=== PATIENT | male | born 1990 | race American Indian/Alaskan Native ===

== ENCOUNTER 2019-04-23 05:46 | Inpatient (IN) | payer OTHER ==
[2019-04-23 06:44] LABS: Bacteria,Urine 1+ /HPF (Negative); Bilirubin,Urine NEG (Negative); Blood,Urine SM (Negative); Color,Urine Amber (Yellow); Mucus,Urine 3+ /HPF; Urobilinogen,Urine < 2.0 mg/dL (<2.0)
--- NOTE | 2019-04-23 08:02 | Event Note ---
ED Screening Note ED Screening Note: TO ER WITH ABD PAIN BP ELEVATED HE TOOK MOMS BP MED HE IS TREMULOUS ON EXAM LAST DRANK 3 DAYS AGO DRINKS 5TH OF HARD LIQUOR DAILY FOR 3-4 YEARS NO DRUGS NO CIG NO MENTAL HEALTH HX NEVER HAD DTS IN PAST COOPERATIVE This initial assessment/diagnostic orders/clinical plan/treatment(s) is/are subject to change based on patients health status, clinical progression and re- assessment by fellow clinical providers in the ED. Further treatment and workup at subsequent clinical providers discretion. Patient/guardian urged not to elope from the ED as their condition may be serious if not clinically assessed and managed. Initial orders include: ROUTINE LABS XRAY ZACHARY PIRES MD IN MAIN ED.
[2019-04-23 08:20] LABS: Hematocrit 51.4 % (35.5-45.6); Hemoglobin 17.2 gm/dl (11.8-15.2); Mean Corpuscular HGB Conc 33 % (32-34); Mean Corpuscular Volume 90 fl (84-94); Platelet Count 134 K/mm3 (140-440); Red Blood Count 5.69 M/mm3 (3.65-5.03); Red Cell Distribution Width 13.7 % (13.2-15.2)
[2019-04-23] MEDS ORDERED: THIAMINE 100 MG, FOLIC ACID 1 MG, MULTIPLE VITAMIN/VIT K 10 ML in SODIUM CHLORIDE 0.9% ... IV ONE (08:30)
[2019-04-23 08:35] LABS: Partial Thromboplastin Time 31.2 Sec. (24.2-36.6)
[2019-04-23 08:41] LABS: Alanine Aminotransferase 71 units/L (7-56); BUN/Creatinine Ratio 15; Blood Urea Nitrogen 12 mg/dL (9-20); Calcium 8.7 mg/dL (8.4-10.2); Hemolysis Index 36
--- NOTE | 2019-04-23 09:11 | XRay Report ---
CHEST 1 VIEW INDICATION: Alcohol Intoxication. COMPARISON: None FINDINGS: Support devices: None. Heart: Within normal limits. Lungs/Pleura: No acute air space or interstitial disease. There is poor inspiratory effort. Additional findings: None. IMPRESSION: No acute findings. Signer Name: Royce Adams Jr, MD Signed: 04/23/2019 9:07 AM Workstation Name: [id number]
[2019-04-23] MEDS ORDERED: LORazepam 2 MG/ML VIAL IV STA (10:10)
--- NOTE | 2019-04-23 10:17 | Emergency Department Report ---
<SANDRO LONDON - Last Filed: 04/23/19 12:23> ED Abdominal Pain HPI - General Chief Complaint: Abdominal Pain Stated Complaint: POSS HIGH BP STOMACH PAIN Time Seen by Provider: 04/23/19 10:01 Source: patient Mode of arrival: Ambulatory Limitations: No Limitations - History of Present Illness Initial Comments: 29-year-old -Luxembourger male with a past medical history alcohol abuse reports He drinks one to two 1/5 of liquor daily for the last 3 years. Reports having diarrhea and abdominal discomfort for the last 2 days as well as is associated with some mild pain to the upper abdomen. Reports no fever, chills, sweats no hemoptysis no hematemesis nor hematochezia and still exhibited to tolerate meals. MD Complaint: abdominal pain Location: diffuse Radiation: none Severity: mild Consistency: constant Improves With: nothing Worsens With: nothing Associated Symptoms: diarrhea. denies: nausea, vomiting, constipation, dysuria, hematemesis, melena, hematuria, anorexia, syncope - Related Data Previous Rx's Medication Instructions Recorded Last Taken Type Acetaminophen/Codeine [Tylenol #3] 1 tab PO Q6H PRN #15 tab 09/22/15 Unknown Rx Cyclobenzaprine [Flexeril 10 MG 10 mg PO TID PRN #12 tablet 09/22/15 Unknown Rx TAB] Ibuprofen [Motrin 800 MG tab] 800 mg PO Q8HR PRN #30 tablet 09/22/15 Unknown Rx Allergies Allergy/AdvReac Type Severity Reaction Status Date / Time No Known Allergies Allergy Unverified 09/22/15 14:21 ED Review of Systems Comment: All other systems reviewed and negative ED Past Medical Hx - Past Medical History Previous Medical History?: No - Surgical History Past Surgical History?: Yes Additional Surgical History: Right Wrist surgery - Social History Smoking Status: Never Smoker Substance Use Type: Alcohol - Medications Home Medications: Home Medications Medication Instructions Recorded Confirmed Last Taken Type Acetaminophen/Codeine [Tylenol #3] 1 tab PO Q6H PRN #15 tab 09/22/15 Unknown Rx Cyclobenzaprine [Flexeril 10 MG 10 mg PO TID PRN #12 tablet 09/22/15 Unknown Rx TAB] Ibuprofen [Motrin 800 MG tab] 800 mg PO Q8HR PRN #30 tablet 09/22/15 Unknown Rx ED Physical Exam - General Limitations: No Limitations General appearance: alert, in no apparent distress - Head Head exam: Present: atraumatic, normocephalic - Eye Eye exam: Present: normal appearance - ENT ENT exam: Present: mucous membranes moist - Neck Neck exam: Present: normal inspection - Respiratory Respiratory exam: Present: normal lung sounds bilaterally. Absent: respiratory distress - Cardiovascular Cardiovascular Exam: Present: regular rate, normal rhythm. Absent: systolic murmur, diastolic murmur, rubs, gallop - GI/Abdominal GI/Abdominal exam: Present: soft, tenderness, normal bowel sounds. Absent: distended, guarding, hyperactive bowel sounds, hypoactive bowel sounds, organomegaly - Rectal Rectal exam: Present: deferred - Extremities Exam Extremities exam: Present: normal inspection, full ROM, normal capillary refill - Back Exam Back exam: Present: normal inspection. Absent: CVA tenderness (R), CVA tenderness (L) - Neurological Exam Neurological exam: Present: alert, oriented X3, CN II-XII intact - Psychiatric Psychiatric exam: Present: normal affect, normal mood - Skin Skin exam: Present: warm, dry, intact, normal color. Absent: rash ED Medical Decision Making - Lab Data Result diagrams: 04/23/19 Unknown 04/23/19 Unknown - Radiology Data Radiology results: report reviewed Findings [facility] [address] [place] [address] Cat Scan Report Signed Patient: NIKKI JONES MR#: [id number] : 1990 Acct:[id number] Age/Sex: 29 / M ADM Date: 04/23/19 Loc: ED Attending Dr: Ordering Physician: RYANN JORDAN Date of Service: 04/23/19 Procedure(s): CT abdomen pelvis w con Accession Number(s): [id number] cc: RYANN JORDAN CT ABDOMEN AND PELVIS WITH CONTRAST HISTORY: diffuse pain, swelling, elevated liver /lipase COMPARISON: None. TECHNIQUE: Axial CT images were obtained through the abdomen and pelvis after 100 cc of Omnipaque 300 intravenously. Sagittal and coronal reformatted images. All CT scans at this location are performed using CT dose reduction for ALARA by means of automated exposure control. FINDINGS: CT ABDOMEN: Lung Bases: Mild cardiomegaly. Small layering left pleural effusion measuring 1 cm in thickness. Liver: There is mild to moderate hepatomegaly. There is marketed decreased attenuation throughout the liver consistent with severe fatty infiltration. No focal liver lesion. Biliary: A few tiny calcified gallstones are identified in the gallbladder. No biliary dilatation or inflammation. No obvious common bile duct stones. Spleen: No s ignificant abnormality. Unenlarged. Pancreas: The pancreas appears edematous. There is moderate to large inflammatory changes and fluid surrounding the pancreatic bed highly suggestive of acute pancreatitis. No pancreatic mass or pseudocyst is identified. Adrenals: No significant abnormality. Kidneys: No significant abnormality. Lymphatics: No lymphadenopathy. Vasculature: No significant abnormality. Bowel/Peritoneum: No significant abnormality. No free air. Small free fluid is noted in the paracolic gutters and pelvis.. Appendix is not confidently identified. CT PELVIS: : No significant abnormality. Osseous Structures: No significant abnormality. Additional Findings: None IMPRESSION: Findings consistent with acute pancreatitis. Cholelithiasis. Hepatomegaly with severe diffuse fatty infiltration throughout the liver. Mild cardiomegaly and small left pleural effusion. Small ascites. Signer Name: Royce Adams Jr, MD Signed: 04/23/2019 12:07 PM Workstation Name: [id number] Transcribed By: TTR Dictated By: ROYCE ADAMS JR, MD Electronically Authenticated By: ROYCE ADAMS JR, MD Signed Date/Time: 04/23/19 1207 [facility] [address] [place] [address] XRay Report Signed Patient: NIKKI JONES MR#: [id number] : 1990 Acct:[id number] Age/Sex: 29 / M ADM Date: 04/23/19 Loc: ED At [facility] Dr: Ordering Physician: TORRIE JUDGE Date of Service: 04/23/19 Procedure(s): XR chest 1V ap Accession Number(s): [id number] cc: TORRIE JUDGE Fluoro Time In Minutes: CHEST 1 VIEW INDICATION: Alcohol Intoxication. COMPARISON: None FINDINGS: Support devices: None. Heart: Within normal limits. Lungs/Pleura: No acute air space or interstitial disease. There is poor inspiratory effort. Additional findings: None. IMPRESSION: No acute findings. Signer Name: Royce Adams Jr, MD Signed: 04/23/2019 9:07 AM Workstation Name: [id number] [facility] [address] [place] [address] XRay Report Signed Patient: NIKKI JONES MR#: [id number] : 1990 Acct:[id number] Age/Sex: 29 / M ADM Date: 04/23/19 Loc: ED Attending Dr: Ordering Physician: TORRIE JUDGE Date of Service: 04/23/19 Procedure(s): XR chest 1V ap Accession Number(s): [id number] cc: TORRIE JUDGE Fluoro Time In Minutes: CHEST 1 VIEW INDICATION: Alcohol Intoxication. COMPARISON: None FINDINGS: Support devices: None. Heart: Within normal limits. Lungs/Pleura: No acute air space or interstitial disease. There is poor inspiratory effort. Additional findings: None. IMPRESSION: No acute findings. Signer Name: Royce Adams Jr, MD Signed: 04/23/2019 9:07 AM Workstation Name: [id number] - Medical Decision Making 39-year-old -Luxembourger [place] male alcoholic who presents with abdominal pain associated with diarrhea and 24 hours of etoh intake. His lipase was elevated at close to 900 also has shows elevated liver enzymes as well. CT scan did confirm pancreatitis and coldly left physis with no active cholecystitis. Case was discussed with hospitalist Dr. De Jesus with plan to admit to [facility] for hydration and further evaluation and treatment options he is also instructed in detoxification of alcohol ED Disposition Disposition: DC-01 TO HOME OR SELFCARE Is pt being admited?: Yes Does the pt Need Aspirin: No Condition: Stable Referrals: PRIMARY CARE, [Primary Care Provider] - 3-5 Days <CHRIS DAWSON III - Last Filed: 04/23/19 13:27> ED Review of Systems ROS: Stated complaint: POSS HIGH BP STOMACH PAIN Other details as noted in HPI ED Physical Exam - General Limitations: No Limitations General appearance: alert, in no apparent distress - Head Head exam: Present: atraumatic, normocephalic - Eye Eye exam: Present: normal appearance - ENT ENT exam: Present: mucous membranes moist - Neck Neck exam: Present: normal inspection - Respiratory Respiratory exam: Present: normal lung sounds bilaterally. Absent: respiratory distress - Cardiovascular Cardiovascular Exam: Present: regular rate, normal rhythm. Absent: systolic murmur, diastolic murmur, rubs, gallop - GI/Abdominal GI/Abdominal exam: Present: soft, tenderness, normal bowel sounds - Rectal Rectal exam: Present: deferred - Extremities Exam Extremities exam: Present: normal inspection, full ROM, normal capillary refill - Back Exam Back exam: Present: normal inspection - Neurological Exam Neurological exam: Present: alert, oriented X3, CN II-XII intact - Psychiatric Psychiatric exam: Present: normal affect, normal mood - Skin Skin exam: Present: warm, dry, intact, normal color. Absent: rash ED Course Vital Signs 04/23/19 04/23/19 04/23/19 05:48 08:52 10:19 Temperature 98.3 F 100.2 F H Pulse Rate 71 118 H 138 H Respiratory 16 18 22 Rate Blood Pressure 153/104 Blood Pressure 176/88 162/112 [Left] O2 Sat by Pulse 98 99 100 Oximetry 04/23/19 04/23/19 04/23/19 12:13 13:05 13:11 Temperature 100.2 F H Pulse Rate 140 H 160 H 132 H Respiratory 16 Rate Blood Pressure Blood Pressure 159/110 [Left] O2 Sat by Pulse 100 Oximetry - Reevaluation(s) Reevaluation #1: I discussed case with patient. I evaluated the patient. Patient was admitted to the hospital service. Patient agrees with plan of care. 04/23/19 10:56 - Consultations Consultation #1: Hospitalist consult for admission. Hospitalist to admit patient. Bridge orders place. 04/23/19 12:27 ED Medical Decision Making - Lab Data Result diagrams: 04/23/19 Unknown 04/23/19 Unknown Critical care attestation.: If time is entered above; I have spent that time in minutes in the direct care of this critically ill patient, excluding procedure time.
[2019-04-23 10:50] LABS: Bacteria,Urine 1+ /HPF (Negative); Bilirubin,Urine SM (Negative); Blood,Urine NEG (Negative); Color,Urine Amber (Yellow); Mucus,Urine 3+ /HPF; Protein,Urine >2000 mg dL mg/dL (Negative)
[2019-04-23] MEDS: LORazepam 2 MG/ML VIAL IV PRN ×8 (10:56→23:58)
[2019-04-23 11:00] LABS: Ictotest,Urine Positive (Negative)
[2019-04-23 11:04] LABS: Amphetamine Screen,Urine PRESUMPTIVE NEGATIVE; Benzodiazepines Screen,Urine PRESUMPTIVE NEGATIVE; Cannabinoid Screen,Urine PRESUMPTIVE NEGATIVE; Cocaine Screen,Urine PRESUMPTIVE NEGATIVE; Methadone Screen,Urine PRESUMPTIVE NEGATIVE; Opiate Screen,Urine PRESUMPTIVE NEGATIVE
[2019-04-23 11:08] LABS: Basophils % (Manual) 0 % (0.0-1.8); Eosinophils % (Manual) 0 % (0.0-4.3); Total Cells Counted 100
[2019-04-23 11:09] LABS: Anisocytosis Few; Platelet Estimate Consistent w Auto
--- NOTE | 2019-04-23 12:12 | Cat Scan Report ---
CT ABDOMEN AND PELVIS WITH CONTRAST HISTORY: diffuse pain, swelling, elevated liver /lipase COMPARISON: None. TECHNIQUE: Axial CT images were obtained through the abdomen and pelvis after 100 cc of Omnipaque 300 intravenously. Sagittal and coronal reformatted images. All CT scans at this location are performed using CT dose reduction for ALARA by means of automated exposure control. FINDINGS: CT ABDOMEN: Lung Bases: Mild cardiomegaly. Small layering left pleural effusion measuring 1 cm in thickness. Liver: There is mild to moderate hepatomegaly. There is marketed decreased attenuation throughout the liver consistent with severe fatty infiltration. No focal liver lesion. Biliary: A few tiny calcified gallstones are identified in the gallbladder. No biliary dilatation or inflammation. No obvious common bile duct stones. Spleen: No significant abnormality. Unenlarged. Pancreas: The pancreas appears edematous. There is moderate to large inflammatory changes and fluid s urrounding the pancreatic bed highly suggestive of acute pancreatitis. No pancreatic mass or pseudocy st is identified. Adrenals: No significant abnormality. Kidneys: No significant abnormality. Lymphatics: No lymphadenopathy. Vasculature: No significant abnormality. Bowel/Peritoneum: No significant abnormality. No free air. Small free fluid is noted in the paracolic gutters and pelvis.. Appendix is not confidently identified. CT PELVIS: : No significant abnormality. Osseous Structures: No significant abnormality. Additional Findings: None IMPRESSION: Findings consistent with acute pancreatitis. Cholelithiasis. Hepatomegaly with severe diffuse fatty infiltration throughout the liver. Mild cardiomegaly and small left pleural effusion. Small ascites. Signer Name: Royce Adams Jr, MD Signed: 04/23/2019 12:07 PM Workstation Name: [id number]
[2019-04-23] MEDS ORDERED: SODIUM CHLORIDE 0.9% 1000 ML 1,000 ML IV ONE ×2 (12:46→18:50)
[2019-04-23] MEDS ORDERED: SODIUM CHLORIDE 0.9% 1000 ML 1,000 ML IV SCH (13:30)
[2019-04-23] MEDS ORDERED: HYDROmorphone 2 MG/1 ML INJ IV ONE (14:46)
[2019-04-23] MEDS ORDERED: HYDROmorphone 1 MG/1 ML INJ ONE (14:50)
[2019-04-23] MEDS ORDERED: ACETAMINOPHEN 325 MG TAB PO PRN ×2 (18:51→19:48)
[2019-04-23] MEDS ORDERED: ONDANSETRON 4 MG/2 ML INJ IV PRN (19:48)
[2019-04-23] MEDS ORDERED: METOCLOPRAMIDE 10 MG/2 ML INJ IV PRN (19:48)
[2019-04-23] MEDS ORDERED: VANCOMYCIN PHARMACY TO DOSE IV SCH (21:38)
[2019-04-23] MEDS: METOPROLOL TARTRATE 5 MG/5 ML INJ IV PRN (22:06)
[2019-04-23] MEDS: CEFEPIME/NS 2 GM/100 ML 2 GM/100 ML BAG IV SCH (22:06)
[2019-04-23] MEDS ORDERED: VANCOMYCIN 1,750 MG in SODIUM CHLORIDE 0.9% 500 ML 500 ML IV ONE (23:00)
[2019-04-24] MEDS: LORazepam 2 MG/ML VIAL IV PRN ×11 (01:25→09:10)
[2019-04-24] MEDS: HYDROmorphone 1 MG/1 ML INJ IV PRN ×3 (01:43→09:43)
[2019-04-24] MEDS: METOPROLOL TARTRATE 5 MG/5 ML INJ IV PRN (04:08)
[2019-04-24] MEDS: SODIUM CHLORIDE 0.9% 1000 ML 1,000 ML IV SCH ×5 (04:12→20:44)
[2019-04-24 05:12] LABS: Basophils # (Auto) 0.1 K/mm3 (0.0-0.1); Basophils % (Auto) 0.4 % (0.0-1.8); Eosinophils # (Auto) 0.1 K/mm3 (0.0-0.4); Eosinophils % (Auto) 0.9 % (0.0-4.3); Hemoglobin 14.4 gm/dl (11.8-15.2); Lymphocytes # (Auto) 0.7 K/mm3 (1.2-5.4); Lymphocytes % (Auto) 4.4 % (13.4-35.0); Mean Corpuscular HGB Conc 34 % (32-34); Mean Corpuscular Volume 91 fl (84-94); Monocytes # (Auto) 0.7 K/mm3 (0.0-0.8); Monocytes % (Auto) 4.3 % (0.0-7.3); Platelet Count 104 K/mm3 (140-440); Red Blood Count 4.74 M/mm3 (3.65-5.03); Red Cell Distribution Width 13.8 % (13.2-15.2)
[2019-04-24] MEDS: CEFEPIME/NS 2 GM/100 ML 2 GM/100 ML BAG IV SCH ×3 (05:30→21:43)
[2019-04-24 05:35] LABS: Alanine Aminotransferase 45 units/L (7-56); Albumin 3.1 g/dL (3.9-5); BUN/Creatinine Ratio 11; Blood Urea Nitrogen 8 mg/dL (9-20); Calcium 7.8 mg/dL (8.4-10.2); Hemolysis Index 9
--- NOTE | 2019-04-24 05:45 | Event Note ---
Date: 04/23/19 See H/p in reports Acute Pancreatitis SIRS Etoh dependence DT's Tachycardia
[2019-04-24] MEDS ORDERED: cloNIDine TTS 0.2 MG/24 HR PATCH TD SCH ×2 (06:00→12:00)
--- NOTE | 2019-04-24 06:45 | History and Physical Report ---
CHIEF COMPLAINT: Abdominal pain for 2 days. HISTORY OF PRESENT ILLNESS: A 29-year-old -Surinamese male with no significant past medical history, comes in for severe abdominal pain for the last 48 hours. Pain is about 10 on a scale of 1-10. The patient has nausea and vomiting multiple times, also a couple of loose bowel movements. Pain is sharp in nature, mostly in the epigastric region. The patient drinks vodka every day for the last 3-4 years about two-fifths of vodka bottle, which is about 600 mL of vodka. Did not have any alcohol for the last 2 days. He did drink because he was not feeling well. PAST MEDICAL HISTORY: None. PAST SURGICAL HISTORY: Right wrist surgery. SOCIAL HISTORY: Does not smoke. Alcohol on a regular basis. No marijuana. FAMILY HISTORY: Hypertension. CURRENT MEDICATIONS: None. REVIEW OF SYSTEMS: Significant for severe abdominal pain, which is 04/10/2019 associated with nausea and vomiting and couple of loose bowel movements. Pain is intermittent, lasting for the last 48 hours. PHYSICAL EXAMINATION: GENERAL: Young male, initially cooperative during examination. VITAL SIGNS: Blood pressure was 153/104, temperature 98.3, pulse is 71, respiratory rate is 16. HEENT: Unremarkable. Pupils equal and reactive. NECK: Supple, no lymphadenopathy, no thyromegaly. LUNGS: Clear to auscultation and percussion. Good air entry. CARDIOVASCULAR: S1, S2 heard. No gallop, no murmur, no rub. Apical impulse in left fifth intercostal space and midclavicular line. ABDOMEN: Tenderness present in epigastric region. Guarding present. Bowel sounds are normal. Rebound tenderness present. RECTAL: Normal. EXTREMITIES: Good pedal pulses. No pedal edema. CENTRAL NERVOUS SYSTEM: Alert and oriented x 4 initially, couple of hours later became more agitated and bit confused. No hallucinations. LABORATORY DATA AND IMAGING STUDIES: Significant for white count of 17,700, H and H is 17.2 and 51.4, platelet count is 134,000. Sodium is 134, potassium is 4.1, chloride is 95.4, bicarbonate is 19, BUN and creatinine is 12 and 1.8. Total bilirubin is 1.3, AST is 146, ALT is 71 and alkaline phosphatase is 185. Urine specific gravity is 1.034. Urine drug screen is negative. CT of the abdomen shows hepatomegaly with severe diffuse fatty infiltration, mild cardiomegaly and small left pleural effusion. Findings consistent with acute pancreatitis and cholelithiasis. Lipase was 864. ASSESSMENT AND PLAN: 1. Acute pancreatitis. The patient to be kept n.p.o. IV Dilaudid 1 mg q.3 p.r.n. along with IV Zofran and metoclopramide. 2. ETOH dependence. The patient initiated on CIWA protocol. 3. Hypertension, new onset. The patient is in pain and the blood pressure may be a function of his pain. Catapres patch for now because the patient is n.p.o. 4. Delirium tremens. The patient is going into early delirium tremens. The patient with high CIWA scores. The patient to be transferred to ICU for further care. 5. Transaminitis secondary to alcohol. We will check acute hepatitis profile. 6. Dehydration. IV fluids for now. 7. Clinical picture consistent with systemic inflammatory response syndrome. The patient has a high white count and also high hemoglobin and hematocrit, which may be secondary to hemoconcentration. IV fluids for now and empiric IV cefepime, which has to be deescalated, if necessary. No source of infection identified. 8. Deep vein thrombosis prophylaxis. Lovenox 40 mg subcutaneously daily. In summary, the patient has acute pancreatitis, systemic inflammatory response syndrome, ETOH dependence, delirium tremens, leukocytosis and transaminitis along with volume depletion. CCT 45 minutes JOB# [id number] VSM/NTS MTDD
[2019-04-24] MEDS ORDERED: MAGNESIUM SULFATE 4 GM/100 ML BAG IV ONE ×2 (09:00→11:48)
[2019-04-24] MEDS ORDERED: POTASSIUM PHOSPHATE 45 MMOL in SODIUM CHLORIDE 0.9% 500 ML 500 ML IV ONE (09:00)
[2019-04-24] MEDS: HALOPERIDOL LACTATE 5 MG/1 ML INJ IV PRN (09:31)
[2019-04-24] MEDS: METOPROLOL TARTRATE 5 MG/5 ML INJ IV SCH ×4 (09:31→23:17)
[2019-04-24 10:02] LABS: Hepatitis B Surface Antigen Non-Reactive (Negative); Hepatitis C Virus Antibody Non-Reactive (NonReactive)
[2019-04-24] MEDS ORDERED: MORPHINE 2 MG/1 ML INJ IV PRN (10:42)
[2019-04-24] MEDS ORDERED: VANCOMYCIN 1,250 MG in SODIUM CHLORIDE 0.9% 250ML 250 ML IV SCH (11:00)
--- NOTE | 2019-04-24 11:27 | Consultation ---
History of Present Illness - Reason for Consult Consult date: 04/24/19 ETOH withdrawal, elevated CIWA Requesting physician: LAY CALIX - History of Present Illness 29 y/o presents with abdominal pain. Found to have acute pancreatitis and to be in ETOH withdrawal. Admitted to ICU for further management. patient has been febrile and tachycardic. Does have some abdominal pain but this has improved. Past History Past Medical History: hypertension Social history: alcohol abuse Medications and Allergies Allergies Allergy/AdvReac Type Severity Reaction Status Date / Time No Known Allergies Allergy Unverified 09/22/15 14:21 Home Medications Medication Instructions Recorded Confirmed Last Taken Type Acetaminophen/Codeine [Tylenol #3] 1 tab PO Q6H PRN #15 tab 09/22/15 04/23/19 Unknown Rx Cyclobenzaprine [Flexeril 10 MG 10 mg PO TID PRN #12 tablet 09/22/15 04/23/19 Unknown Rx TAB] Ibuprofen [Motrin 800 MG tab] 800 mg PO Q8HR PRN #30 tablet 09/22/15 04/23/19 Unknown Rx Amlodipine Besylate [Norvasc] 5 mg PO DAILY 04/23/19 04/23/19 04/21/19 History 5 mg Active Meds: Active Medications Acetaminophen (Tylenol) 650 mg PO Q4H PRN PRN Reason: Pain MILD(1-3)/Fever >100.5/GUILLAUME Last Admin: 04/24/19 04:56 Dose: 650 mg Documented by: Haloperidol Lactate (Haldol) 5 mg IV Q1H PRN PRN Reason: Unrespon. to mult. doses BZD's Last Admin: 04/24/19 09:31 Dose: 5 mg Documented by: Cefepime HCl (Cefepime/Ns 2 Gm/100 Ml) 2 gm in 100 mls @ 200 mls/hr IV Q8HR DEVI; Protocol Last Admin: 04/24/19 05:30 Dose: 200 mls/hr Documented by: Sodium Chloride (Nacl 0.9% 1000 Ml) 1,000 mls @ 200 mls/hr IV DIRECT DEVI Last Admin: 04/24/19 04:12 Dose: 150 mls/hr Documented by: Magnesium Sulfate (Magnesium Sulfate 4gm/100ml) 4 gm in 100 mls @ 25 mls/hr IV ONCE ONE Stop: 04/24/19 12:59 Last Admin: 04/24/19 09:28 Dose: 25 mls/hr Documented by: Potassium Phosphate 45 mmol/ (Sodium Chloride) 515 mls @ 85 mls/hr IV ONCE ONE Stop: 04/24/19 15:03 Last Admin: 04/24/19 10:05 Dose: 85 mls/hr Documented by: Dexmedetomidine HCl 400 mcg/ (Sodium Chloride) 104 mls @ 4.55 mls/hr IV TITRATE [facility]; Protocol Sodium Chloride (Nacl 0.9% 1000 Ml) 1,000 mls @ 999 mls/hr IV Q1H [facility] Stop: 04/24/19 12:59 Last Admin: 04/24/19 11:04 Dose: 999 mls/hr Documented by: Lorazepam (Ativan) 4 mg IV Q15MIN PRN PRN Reason: CIWA-Ar >25 Last Admin: 04/24/19 09:10 Dose: 4 mg Documented by: Lorazepam (Ativan) 4 mg IV Q1HR PRN PRN Reason: CIWA-Ar 16-25 Last Admin: 04/24/19 06:41 Dose: 4 mg Documented by: Lorazepam (Ativan) 2 mg IV Q1HR PRN PRN Reason: CIWA-Ar 8-15 Last Admin: 04/24/19 01:25 Dose: 2 mg Documented by: Metoclopramide HCl (Reglan) 10 mg IV Q6H PRN PRN Reason: Nausea And Vomiting Metoprolol Tartrate (Metoprolol) 5 mg IV Q6HR [facility] Last Admin: 04/24/19 09:31 Dose: 5 mg Documented by: Morphine Sulfate (Morphine) 1 mg IV Q6HR PRN PRN Reason: Pain, Moderate (4-6) Morphine Sulfate (Morphine) 2 mg IV Q6H PRN PRN Reason: Pain , Severe (7-10) Ondansetron HCl (Zofran) 4 mg IV Q3H PRN PRN Reason: Nausea And Vomiting Sodium Chloride (Sodium Chloride Flush Syringe 10 Ml) 10 ml IV BID [facility] Last Admin: 04/24/19 11:04 Dose: 10 ml Documented by: Sodium Chloride (Sodium Chloride Flush Syringe 10 Ml) 10 ml IV PRN PRN PRN Reason: LINE FLUSH Review of Systems ROS unobtainable: due to mental status Exam - Constitutional Vitals: Temp Pulse Resp BP Pulse Ox 99.1 F 146 H 34 H 174/117 94 04/24/19 08:00 04/24/19 09:31 04/24/19 08:01 04/24/19 09:31 04/24/19 08:01 General appearance: Present: mild distress, well-nourished, obese - EENT Eyes: Present: PERRL, EOM intact ENT: hearing intact - Neck Neck: Present: supple, normal ROM - Respiratory Respiratory effort: labored Respiratory: bilateral: CTA - Cardiovascular Rhythm: other (sinus tach) - Extremities Extremities: no ischemia - Abdominal General gastrointestinal: Present: tender, distended, other (hyperactive bowel sounds) Male genitourinary: Present: deferred - Rectal Rectal Exam: deferred - Psychiatric Psychiatric: agitated Results - Labs CBC & Chem 7: 04/24/19 04:53 04/24/19 04:53 Labs: Abnormal lab results 04/24/19 04/24/19 04/24/19 Range/Units 04:53 04:53 07:10 WBC 16.7 H (4.5-11.0) K/mm3 Plt Count 104 L (140-440) K/mm3 Lymph % (Auto) 4.4 L (13.4-35.0) % Lymph # 0.7 L (1.2-5.4) K/mm3 Seg Neutrophils % 90.0 H (40.0-70.0) % Seg Neutrophils # 15.0 H (1.8-7.7) K/mm3 Sodium 135 L (137-145) mmol/L Potassium 3.5 L (3.6-5.0) mmol/L Carbon Dioxide 18 L (22-30) mmol/L BUN 8 L (9-20) mg/dL Creatinine 0.7 L (0.8-1.5) mg/dL Calcium 7.8 L (8.4-10.2) mg/dL Phosphorus 1.40 L (2.5-4.5) mg/dL Magnesium 1.60 L (1.7-2.3) mg/dL AST 81 H (5-40) units/L Alkaline Phosphatase 145 H (35-129) units/L Albumin 3.1 L (3.9-5) g/dL Lipase 211 H (13-60) units/L - Imaging and Cardiology Chest x-ray: image reviewed (expiratory film but clear) Assessment and Plan 29 y/o male with acute pancreatitis and ETOH withdrawal 1. IVF hydration 2. Blood pressure control 3. Will use precedex given large amounts of ativan required in the last 18 hours 4. Monitor calcium, glucose and other electrolytes 5. Continue NPO status CCT 31 minutes
[2019-04-24] MEDS: DEXMEDETOMIDINE 400 MCG in SODIUM CHLORIDE 0.9% 100 ML IV SCH ×2 (11:49→18:01)
[2019-04-24] MEDS ORDERED: D5W/0.9% NACL 1,000 ML IV SCH (12:00)
[2019-04-24] MEDS: THIAMINE 100 MG in SODIUM CHLORIDE 0.9% 50 ML IV SCH (13:12)
--- NOTE | 2019-04-24 13:40 | Gastroenterology Consultation ---
History of Present Illness - Reason for Consult Consult date: 04/24/19 acute pancreatitis Requesting physician: SALMA PRESTON - History of Present Illness Patient is a 29 y/o male with PMH of HTN and ETOH abuse who presented to ED with c/o abdominal pain and loose stool which has now resolved. Upon admission, he was found to be in ETOH withdrawal and to have acute pancreatitis to which GI has been consulted. This afternoon patient was resting in bed in ICU, noted to be somnolent with mild distress 2/2 tachypnea. Family at bedside. Reports abd pain slightly improved. No N/V or signs of GI bleeding. No new medications. Admits to heavy daily alcohol use x ~2 years. Mother states patient had a recent episode of pancreatitis ~2 months ago that did not require hospitalization. No known hx or Fhx of liver/pancrease disease. Past History Past Medical History: hypertension, other Past Surgical History: Other (right wrist) Social history: alcohol abuse. denies: smoking Medications and Allergies Allergies Allergy/AdvReac Type Severity Reaction Status Date / Time No Known Allergies Allergy Unverified 09/22/15 14:21 Home Medications Medication Instructions Recorded Confirmed Last Taken Type Acetaminophen/Codeine [Tylenol #3] 1 tab PO Q6H PRN #15 tab 09/22/15 04/23/19 Unknown Rx Cyclobenzaprine [Flexeril 10 MG 10 mg PO TID PRN #12 tablet 09/22/15 04/23/19 Unknown Rx TAB] Ibuprofen [Motrin 800 MG tab] 800 mg PO Q8HR PRN #30 tablet 09/22/15 04/23/19 Unknown Rx Amlodipine Besylate [Norvasc] 5 mg PO DAILY 04/23/19 04/23/19 04/21/19 History 5 mg Active Meds: Active Medications Acetaminophen (Tylenol) 650 mg PO Q4H PRN PRN Reason: Pain MILD(1-3)/Fever >100.5/GUILLAUME Last Admin: 04/24/19 04:56 Dose: 650 mg Documented by: Clonidine HCl (Catapres-Tts Patch) 0.2 mg TD Th DEVI Last Admin: 04/24/19 12:33 Dose: 0.2 mg Documented by: Haloperidol Lactate (Haldol) 5 mg IV Q1H PRN PRN Reason: Unrespon. to mult. doses BZD's Last Admin: 04/24/19 09:31 Dose: 5 mg Documented by: Cefepime HCl (Cefepime/Ns 2 Gm/100 Ml) 2 gm in 100 mls @ 200 mls/hr IV Q8HR DEVI; Protocol Last Admin: 04/24/19 05:30 Dose: 200 mls/hr Documented by: Sodium Chloride (Nacl 0.9% 1000 Ml) 1,000 mls @ 200 mls/hr IV DIRECT DEVI Last Admin: 04/24/19 04:12 Dose: 150 mls/hr Documented by: Potassium Phosphate 45 mmol/ (Sodium Chloride) 515 mls @ 85 mls/hr IV ONCE ONE Stop: 04/24/19 15:03 Last Admin: 04/24/19 10:05 Dose: 85 mls/hr Documented by: Dexmedetomidine HCl 400 mcg/ (Sodium Chloride) 104 mls @ 4.55 mls/hr IV TITRATE [facility]; Protocol Last Titration: 04/24/19 12:34 Dose: 0.3 mcg/kg/hr, 6.825 mls/hr Documented by: Thiamine HCl 100 mg/ Sodium (Chloride) 51 mls @ 100 mls/hr IV QDAY [facility] Last Admin: 04/24/19 13:12 Dose: 100 mls/hr Documented by: Lorazepam (Ativan) 4 mg IV Q15MIN PRN PRN Reason: CIWA-Ar >25 Last Admin: 04/24/19 09:10 Dose: 4 mg Documented by: Lorazepam (Ativan) 4 mg IV Q1HR PRN PRN Reason: CIWA-Ar 16-25 Last Admin: 04/24/19 06:41 Dose: 4 mg Documented by: Lorazepam (Ativan) 2 mg IV Q1HR PRN PRN Reason: CIWA-Ar 8-15 Last Admin: 04/24/19 01:25 Dose: 2 mg Documented by: Metoclopramide HCl (Reglan) 10 mg IV Q6H PRN PRN Reason: Nausea And Vomiting Metoprolol Tartrate (Metoprolol) 5 mg IV Q6HR DEVI Last Admin: 04/24/19 12:31 Dose: 5 mg Documented by: Morphine Sulfate (Morphine) 1 mg IV Q6HR PRN PRN Reason: Pain, Moderate (4-6) Morphine Sulfate (Morphine) 2 mg IV Q6H PRN PRN Reason: Pain , Severe (7-10) Ondansetron HCl (Zofran) 4 mg IV Q3H PRN PRN Reason: Nausea And Vomiting Sodium Chloride (Sodium Chloride Flush Syringe 10 Ml) 10 ml IV BID [facility] Last Admin: 04/24/19 11:04 Dose: 10 ml Documented by: Sodium Chloride (Sodium Chloride Flush Syringe 10 Ml) 10 ml IV PRN PRN PRN Reason: LINE FLUSH medications reviewed/updated as required Review of Systems - Review of Systems Gastrointestinal: abdominal pain Exam - Constitutional Vital Signs: Temp Pulse Resp BP Pulse Ox 102.8 F H 125 H 34 H 157/111 94 04/24/19 12:00 04/24/19 12:33 04/24/19 08:01 04/24/19 12:33 04/24/19 08:01 General appearance: mild distress, other (somnolent) - Respiratory Respiratory effort: labored (slightly), other (tachypnea) Respiratory: bilateral: CTA (anterior) - Cardiovascular Rhythm: other (tachycardia) - Gastrointestinal General gastrointestinal: Present: soft, tender, non-distended, normal bowel sounds - Neurologic Neurological: alert and oriented x3 - Labs CBC & Chem 7: 04/24/19 04:53 04/24/19 04:53 Lab Results: Laboratory Results - last 24 hr 04/23/19 04/24/19 04/24/19 20:20 04:53 04:53 WBC 16.7 H RBC 4.74 Hgb 14.4 Hct 43.0 D MCV 91 MCH 30 MCHC 34 RDW 13.8 Plt Count 104 L Lymph % (Auto) 4.4 L [place] % (Auto) 4.3 Eos % (Auto) 0.9 Baso % (Auto) 0.4 Lymph # 0.7 L [place] # 0.7 Eos # 0.1 Baso # 0.1 Seg Neutrophils % 90.0 H Seg Neutrophils # 15.0 H Sodium 135 L Potassium 3.5 L Chloride 101.0 Carbon Dioxide 18 L Anion Gap 20 BUN 8 L Creatinine 0.7 L Estimated GFR > 60 BUN/Creatinine Ratio 11 Glucose 96 Hemoglobin A1c 5.3 Calcium 7.8 L Phosphorus Magnesium Total Bilirubin 1.20 AST 81 H ALT 45 Alkaline Phosphatase 145 H Total Protein 6.5 Albumin 3.1 L Albumin/Globulin Ratio 0.9 Lipase Hepatitis A IgM Ab Hep Bs Antigen Hep B Core IgM Ab Hepatitis C Antibody 04/24/19 04/24/19 07:10 07:10 WBC RBC Hgb Hct MCV MCH MCHC RDW Plt Count Lymph % (Auto) [place] % (Auto) Eos % (Auto) Baso % (Auto) Lymph # [place] # Eos # Baso # Seg Neutrophils % Seg Neutrophils # Sodium Potassium Chloride Carbon Dioxide Anion Gap BUN Creatinine Estimated GFR BUN/Creatinine Ratio Glucose Hemoglobin A1c Calcium Phosphorus 1.40 L Magnesium 1.60 L Total Bilirubin AST ALT Alkaline Phosphatase Total Protein Albumin Albumin/Globulin Ratio Lipase 211 H Hepatitis A IgM Ab Non-reactive Hep Bs Antigen Non-reactive Hep B Core IgM Ab Non-reactive Hepatitis C Antibody Non-reactive Assessment and Plan 1.acute pancreatitis 2.ETOH abuse -temp 102.8 -WBC 16.7-trending down -H/H WNL-no active signs of bleeding -INR 1.00, plt 104 -LFTs trending down (T.chantel 1.20, AST 81, ALT 45, alk phos 145) -lipase 211-trending down (864 on admission) -abd CT showed acute pancreatitis, severe fatty infiltration of liver, and gallstones (no biliary ductal dilation) -etiology-most likely 2/2 ETOH -will order abd U/S and labs (triglyceride level) to r/o other causes -Keep NPO for now -continue to trend labs (CRP in am) and supportive care (IVF, pain control, antibiotics, etc.) -alcohol cessation discussed with pt/family-CIWA protocol -will follow
--- NOTE | 2019-04-24 14:32 | Progress Note ---
Assessment and Plan Assessment and plan: Acute pancreatitis Admitted to ICU keep NPO Monitor Lipase levels consult GI Alcohol withdrawal syndrome/delirium [place] [facility] protocol add Haldol to Ativan Alcohol abuse Thiamine iv fluids Hypophosphatemia replace and recheck Hypomagnesemia replace and recheck Elevated LFT SIRS Fever SIRS versus rukle out sepsis on empiriv iv Antibiotics blood cultures drawn leukocytosis SIRS versus Sepsis Full code status History Interval history: Abdominal pain Mild agitation Hospitalist Physical - Physical exam Narrative exam: Gen: Not in acute distress, lying in bed , ill looking HEENT: Normocephalic, atraumatic Neck: supple, no JVD Heart: S1 and S2 reg,tachy, no murmurs, rubs or gallop Lungs: Clear to auscultation, no rhonchi, no wheeze Abd: soft, tender mid abdomen, no rebound, non distended, normal BS, Ext: No edema, no clubbing, no cyanosis Neuro: Awake, alert, oriented X 3, no focal neurological signs, mild agitation - Constitutional Vitals: Temp Pulse Resp BP Pulse Ox 102.8 F H 146 H 25 H 167/121 95 04/24/19 12:00 04/24/19 13:30 04/24/19 13:30 04/24/19 13:30 04/24/19 13:30 General appearance: Present: well-nourished Results - Labs CBC & Chem 7: 04/24/19 04:53 04/24/19 04:53 Labs: Laboratory Last Values WBC 16.7 K/mm3 (4.5-11.0) H 04/24/19 04:53 RBC 4.74 M/mm3 (3.65-5.03) 04/24/19 04:53 Hgb 14.4 gm/dl (11.8-15.2) 04/24/19 04:53 Hct 43.0 % (35.5-45.6) D 04/24/19 04:53 MCV 91 fl (84-94) 04/24/19 04:53 MCH 30 pg (28-32) 04/24/19 04:53 MCHC 34 % (32-34) 04/24/19 04:53 RDW 13.8 % (13.2-15.2) 04/24/19 04:53 Plt Count 104 K/mm3 (140-440) L 04/24/19 04:53 Lymph % (Auto) 4.4 % (13.4-35.0) L 04/24/19 04:53 [place] % (Auto) 4.3 % (0.0-7.3) 04/24/19 04:53 Eos % (Auto) 0.9 % (0.0-4.3) 04/24/19 04:53 Baso % (Auto) 0.4 % (0.0-1.8) 04/24/19 04:53 Lymph # 0.7 K/mm3 (1.2-5.4) L 04/24/19 04:53 [place] # 0.7 K/mm3 (0.0-0.8) 04/24/19 04:53 Eos # 0.1 K/mm3 (0.0-0.4) 04/24/19 04:53 Baso # 0.1 K/mm3 (0.0-0.1) 04/24/19 04:53 Add Manual Diff Complete 04/23/19 Unknown Total Counted 100 04/23/19 Unknown Seg Neutrophils % 90.0 % (40.0-70.0) H 04/24/19 04:53 Seg Neuts % (Manual) 96.0 % (40.0-70.0) H 04/23/19 Unknown Band Neutrophils % 0 % 04/23/19 Unknown Lymphocytes % (Manual) 2.0 % (13.4-35.0) L 04/23/19 Unknown Reactive Lymphs % (Man) 0 % 04/23/19 Unknown Monocytes % (Manual) 2.0 % (0.0-7.3) 04/23/19 Unknown Eosinophils % (Manual) 0 % (0.0-4.3) 04/23/19 Unknown Basophils % (Manual) 0 % (0.0-1.8) 04/23/19 Unknown Metamyelocytes % 0 % 04/23/19 Unknown Myelocytes % 0 % 04/23/19 Unknown Promyelocytes % 0 % 04/23/19 Unknown Blast Cells % 0 % 04/23/19 Unknown Nucleated RBC % Not Reportable 04/23/19 Unknown Seg Neutrophils # 15.0 K/mm3 (1.8-7.7) H 04/24/19 04:53 Seg Neutrophils # Man 17.0 K/mm3 (1.8-7.7) H 04/23/19 Unknown Band Neutrophils # 0.0 K/mm3 04/23/19 Unknown Lymphocytes # (Manual) 0.4 K/mm3 (1.2-5.4) L 04/23/19 Unknown Abs React Lymphs (Man) 0.0 K/mm3 04/23/19 Unknown Monocytes # (Manual) 0.4 K/mm3 (0.0-0.8) 04/23/19 Unknown Eosinophils # (Manual) 0.0 K/mm3 (0.0-0.4) 04/23/19 Unknown Basophils # (Manual) 0.0 K/mm3 (0.0-0.1) 04/23/19 Unknown Metamyelocytes # 0.0 K/mm3 04/23/19 Unknown Myelocytes # 0.0 K/mm3 04/23/19 Unknown Promyelocytes # 0.0 K/mm3 04/23/19 Unknown Blast Cells # 0.0 K/mm3 04/23/19 Unknown WBC Morphology Not Reportable 04/23/19 Unknown Hypersegmented Neuts Not Reportable 04/23/19 Unknown Hyposegmented Neuts Not Reportable 04/23/19 Unknown Hypogranular Neuts Not Reportable 04/23/19 Unknown Smudge Cells Not Reportable 04/23/19 Unknown Toxic Granulation Not Reportable 04/23/19 Unknown Toxic Vacuolation Not Reportable 04/23/19 Unknown Dohle Bodies Not Reportable 04/23/19 Unknown Pelger-Huet Anomaly Not Reportable 04/23/19 Unknown Julieta Rods Not Reportable 04/23/19 Unknown Platelet Estimate Consistent w auto 04/23/19 Unknown Clumped Platelets Not Reportable 04/23/19 Unknown Plt Clumps, EDTA Not Reportable 04/23/19 Unknown Large Platelets Not Reportable 04/23/19 Unknown Giant Platelets Not Reportable 04/23/19 Unknown Platelet Satelliting Not Reportable 04/23/19 Unknown Plt Morphology Comment Not Reportable 04/23/19 Unknown RBC Morphology Not Reportable 04/23/19 Unknown Dimorphic RBCs Not Reportable 04/23/19 Unknown Polychromasia Not Reportable 04/23/19 Unknown Hypochromasia Not Reportable 04/23/19 Unknown Poikilocytosis Not Reportable 04/23/19 Unknown Anisocytosis Few 04/23/19 Unknown Microcytosis Not Reportable 04/23/19 Unknown Macrocytosis Not Reportable 04/23/19 Unknown Spherocytes Not Reportable 04/23/19 Unknown Pappenheimer Bodies Not Reportable 04/23/19 Unknown Sickle Cells Not Reportable 04/23/19 Unknown Target Cells Not Reportable 04/23/19 Unknown Tear Drop Cells Not Reportable 04/23/19 Unknown Ovalocytes Not Reportable 04/23/19 Unknown Helmet Cells Not Reportable 04/23/19 Unknown [place] Bodies Not Reportable 04/23/19 Unknown [place] Rings Not Reportable 04/23/19 Unknown [place] Cells Not Reportable 04/23/19 Unknown Bite Cells Not Reportable 04/23/19 Unknown Crenated Cell Not Reportable 04/23/19 Unknown Elliptocytes Not Reportable 04/23/19 Unknown Acanthocytes (Spur) Not Reportable 04/23/19 Unknown Rouleaux Not Reportable 04/23/19 Unknown Hemoglobin C Crystals Not Reportable 04/23/19 Unknown Schistocytes Not Reportable 04/23/19 Unknown Malaria parasites Not Reportable 04/23/19 Unknown Seun Bodies Not Reportable 04/23/19 Unknown Hem Pathologist Commnt No 04/23/19 Unknown PT 12.9 Sec. (12.2-14.9) 04/23/19 08:01 INR 1.00 (0.87-1.13) 04/23/19 08:01 APTT 31.2 Sec. (24.2-36.6) 04/23/19 08:01 Sodium 135 mmol/L (137-145) L 04/24/19 04:53 Potassium 3.5 mmol/L (3.6-5.0) L 04/24/19 04:53 Chloride 101.0 mmol/L (98-107) 04/24/19 04:53 Carbon Dioxide 18 mmol/L (22-30) L 04/24/19 04:53 Anion Gap 20 mmol/L 04/24/19 04:53 BUN 8 mg/dL (9-20) L 04/24/19 04:53 Creatinine 0.7 mg/dL (0.8-1.5) L 04/24/19 04:53 Estimated GFR > 60 ml/min 04/24/19 04:53 BUN/Creatinine Ratio 11 % 04/24/19 04:53 Glucose 96 mg/dL (75-100) 04/24/19 04:53 Hemoglobin A1c 5.3 % (4-6) 04/23/19 20:20 Calcium 7.8 mg/dL (8.4-10.2) L 04/24/19 04:53 Phosphorus 1.40 mg/dL (2.5-4.5) L 04/24/19 07:10 Magnesium 1.60 mg/dL (1.7-2.3) L 04/24/19 07:10 Total Bilirubin 1.20 mg/dL (0.1-1.2) 04/24/19 04:53 AST 81 units/L (5-40) H 04/24/19 04:53 ALT 45 units/L (7-56) 04/24/19 04:53 Alkaline Phosphatase 145 units/L (35-129) H 04/24/19 04:53 Total Protein 6.5 g/dL (6.3-8.2) 04/24/19 04:53 Albumin 3.1 g/dL (3.9-5) L 04/24/19 04:53 Albumin/Globulin Ratio 0.9 % 04/24/19 04:53 Lipase 211 units/L (13-60) H 04/24/19 07:10 Urine Color [place] (Yellow) 04/23/19 Unknown Urine Turbidity Slightly-cloudy (Clear) 04/23/19 Unknown Urine pH 5.0 (5.0-7.0) 04/23/19 Unknown Ur Specific [place] 1.032 (1.003-1.030) H 04/23/19 Unknown Urine Protein 100 mg/dl mg/dL (Negative) 04/23/19 Unknown Urine Glucose (UA) Neg mg/dL (Negative) 04/23/19 Unknown Urine Ketones 20 mg/dL (Negative) 04/23/19 Unknown Urine Blood Sm (Negative) 04/23/19 Unknown Urine Nitrite Neg (Negative) 04/23/19 Unknown Urine Bilirubin Neg (Negative) 04/23/19 Unknown Urine Ictotest Positive (Negative) 04/23/19 10:36 Urine Urobilinogen < 2.0 mg/dL (<2.0) 04/23/19 Unknown Ur Leukocyte Esterase Neg (Negative) 04/23/19 Unknown Urine WBC (Auto) 4.0 /HPF (0.0-6.0) 04/23/19 Unknown Urine RBC (Auto) 6.0 /HPF (0.0-6.0) 04/23/19 Unknown U Epithel Cells (Auto) < 1.0 /HPF (0-13.0) 04/23/19 10:36 Urine Bacteria (Auto) 1+ /HPF (Negative) 04/23/19 Unknown Urine Mucus 3+ /HPF 04/23/19 Unknown Urine Opiates Screen Presumptive negative 04/23/19 10:36 Urine Methadone Screen Presumptive negative 04/23/19 10:36 Ur Barbiturates Screen Presumptive negative 04/23/19 10:36 Ur Phencyclidine Scrn Presumptive negative 04/23/19 10:36 Ur Amphetamines Screen Presumptive negative 04/23/19 10:36 U Benzodiazepines Scrn Presumptive negative 04/23/19 10:36 Urine Cocaine Screen Presumptive negative 04/23/19 10:36 U Marijuana (THC) Screen Presumptive negative 04/23/19 10:36 Drugs of Abuse Note Disclamer 04/23/19 10:36 Hepatitis A IgM Ab Non-reactive (NonReactive) 04/24/19 07:10 Hep Bs Antigen Non-reactive (Negative) 04/24/19 07:10 Hep B Core IgM Ab Non-reactive (NonReactive) 04/24/19 07:10 Hepatitis C Antibody Non-reactive (NonReactive) 04/24/19 07:10 Active Medications - Current Medications Current Medications: Generic Name Dose Route Start Last Admin Trade Name Freq PRN Reason Stop Dose Admin Acetaminophen 650 mg 04/23/19 19:48 04/24/19 04:56 Tylenol PO 650 mg Q4H PRN Administration Pain MILD(1-3)/Fever >100.5/GUILLAUME Clonidine HCl 0.2 mg 04/24/19 12:00 04/24/19 12:33 Catapres-Tts Patch TD 0.2 mg Th DEVI Administration Haloperidol Lactate 5 mg 04/24/19 09:23 04/24/19 09:31 Haldol IV 5 mg Q1H PRN Administration Unrespon. to mult. doses BZD's Cefepime HCl 2 gm in 100 mls @ 200 mls/hr 04/23/19 22:00 04/24/19 05:30 Cefepime/Ns 2 Gm/100 Ml IV 200 mls/hr Q8HR DEVI Administration Protocol Sodium Chloride 1,000 mls @ 200 mls/hr 04/23/19 23:45 04/24/19 04:12 Nacl 0.9% 1000 Ml IV 150 mls/hr DIRECT DEVI Administration Potassium Phosphate 45 mmol/ 515 mls @ 85 mls/hr 04/24/19 09:00 04/24/19 10:05 Sodium Chloride IV 04/24/19 15:03 85 mls/hr ONCE ONE Administration Dexmedetomidine HCl 400 mcg/ 104 mls @ 4.55 mls/hr 04/24/19 11:00 04/24/19 14:10 Sodium Chloride IV 0.6 mcg/kg/hr TITRATE DEVI 13.65 mls/hr Titration Protocol 0.2 MCG/KG/HR Thiamine HCl 100 mg/ Sodium 51 mls @ 100 mls/hr 04/24/19 13:00 04/24/19 13:12 Chloride IV 100 mls/hr QDAY DEVI Administration Lorazepam 4 mg 04/23/19 10:39 04/24/19 09:10 Ativan IV 4 mg Q15MIN PRN Administration CIWA-Ar >25 Lorazepam 4 mg 04/23/19 10:39 04/24/19 06:41 Ativan IV 4 mg Q1HR PRN Administration CIWA-Ar 16-25 Lorazepam 2 mg 04/23/19 10:39 04/24/19 01:25 Ativan IV 2 mg Q1HR PRN Administration CIWA-Ar 8-15 Metoclopramide HCl 10 mg 04/23/19 19:48 Reglan IV Q6H PRN Nausea And Vomiting Metoprolol Tartrate 5 mg 04/24/19 10:00 04/24/19 12:31 Metoprolol IV 5 mg Q6HR DEVI Administration Morphine Sulfate 1 mg 04/24/19 10:42 Morphine IV Q6HR PRN Pain, Moderate (4-6) Morphine Sulfate 2 mg 04/24/19 10:42 Morphine IV Q6H PRN Pain , Severe (7-10) Ondansetron HCl 4 mg 04/23/19 19:48 Zofran IV Q3H PRN Nausea And Vomiting Sodium Chloride 10 ml 04/23/19 22:00 04/24/19 11:04 Sodium Chloride Flush Syringe 10 Ml IV 10 ml BID DEVI Administration Sodium Chloride 10 ml 04/23/19 19:48 Sodium Chloride Flush Syringe 10 Ml IV PRN PRN LINE FLUSH
[2019-04-24] MEDS: ACETAMINOPHEN 650 MG RECT SUPP PR PRN (17:46)
[2019-04-25] MEDS: DEXMEDETOMIDINE 400 MCG in SODIUM CHLORIDE 0.9% 100 ML IV SCH ×6 (01:12→20:15)
[2019-04-25] MEDS: HALOPERIDOL LACTATE 5 MG/1 ML INJ IV PRN ×5 (02:12→19:30)
[2019-04-25] MEDS: SODIUM CHLORIDE 0.9% 1000 ML 1,000 ML IV SCH ×4 (02:12→21:14)
[2019-04-25] MEDS: LORazepam 2 MG/ML VIAL IV PRN ×8 (02:30→18:55)
--- NOTE | 2019-04-25 02:41 | Ultrasound Report ---
Abdominal ultrasound limited INDICATION: Abdominal pain FINDINGS: the exam is limited secondary to patient body habitus. The liver is severely heterogeneous consistent with hepatomegaly with severe hepatic steatosis. The pancreas is poorly visualized seconda ry to overlying bowel gas. Several small gallstones are appreciated within the gallbladder. The splee n is normal. Both kidneys appear normal. The aorta and visualized IVC are unremarkable IMPRESSION: Severe hepatic steatosis. The pancreas is not well visualized secondary to overlying cristofer l gas. Signer Name: Jason Pairkh MD Signed: 04/25/2019 2:36 AM Workstation Name: [id number]
[2019-04-25] MEDS: METOPROLOL TARTRATE 5 MG/5 ML INJ IV SCH ×3 (05:43→17:37)
[2019-04-25] MEDS: CEFEPIME/NS 2 GM/100 ML 2 GM/100 ML BAG IV SCH (05:45)
--- NOTE | 2019-04-25 08:41 | Progress Note ---
Assessment and Plan Assessment and plan: Acute pancreatitis Admitted to ICU keep NPO Monitor Lipase levels GI following Alcohol withdrawal syndrome/delirium [place] [facility] protocol added Haldol to Ativan Started on precedex for sedation Alcohol abuse Thiamine iv fluids Hypophosphatemia replace and recheck Hypomagnesemia replace and recheck Elevated LFT SIRS supportive care Fever SIRS versus rukle out sepsis on empiriv iv Antibiotics blood cultures drawn leukocytosis Due to SIRS Full code status Discussed with mother at bedside The high probability of a clinically significant, sudden or life threatening deterioration of the [3] system(s) required my full and direct attention, intervention and personal management. The aggregate critical care time was [32] minutes. This time is in addition to time spent performing reported procedures but includes the following: [] Data Review and interpretation [] Patient assessment and monitoring of vital signs [] Documentation [] Medication orders and management History Interval history: Abdominal pain Mild agitation Fever Hospitalist Physical - Physical exam Narrative exam: Gen: Not in acute distress, lying in bed , ill looking HEENT: Normocephalic, atraumatic Neck: supple, no JVD Heart: S1 and S2 reg,tachy, no murmurs, rubs or gallop Lungs: Clear to auscultation, no rhonchi, no wheeze Abd: soft, tender mid abdomen, no rebound, non distended, normal BS, Ext: No edema, no clubbing, no cyanosis Neuro: Awake, alert, oriented X 3, no focal neurological signs, mild agitation - Constitutional Vitals: Temp Pulse Resp BP Pulse Ox 98.9 F 107 H 37 H 145/103 100 04/24/19 20:00 04/25/19 07:00 04/25/19 07:00 04/25/19 07:00 04/25/19 08:16 General appearance: Present: well-nourished Results - Labs CBC & Chem 7: 04/24/19 04:53 04/25/19 07:50 Labs: Laboratory Last Values WBC 16.7 K/mm3 (4.5-11.0) H 04/24/19 04:53 RBC 4.74 M/mm3 (3.65-5.03) 04/24/19 04:53 Hgb 14.4 gm/dl (11.8-15.2) 04/24/19 04:53 Hct 43.0 % (35.5-45.6) D 04/24/19 04:53 MCV 91 fl (84-94) 04/24/19 04:53 MCH 30 pg (28-32) 04/24/19 04:53 MCHC 34 % (32-34) 04/24/19 04:53 RDW 13.8 % (13.2-15.2) 04/24/19 04:53 Plt Count 104 K/mm3 (140-440) L 04/24/19 04:53 Lymph % (Auto) 4.4 % (13.4-35.0) L 04/24/19 04:53 Sunflower % (Auto) 4.3 % (0.0-7.3) 04/24/19 04:53 Eos % (Auto) 0.9 % (0.0-4.3) 04/24/19 04:53 Baso % (Auto) 0.4 % (0.0-1.8) 04/24/19 04:53 Lymph # 0.7 K/mm3 (1.2-5.4) L 04/24/19 04:53 Sunflower # 0.7 K/mm3 (0.0-0.8) 04/24/19 04:53 Eos # 0.1 K/mm3 (0.0-0.4) 04/24/19 04:53 Baso # 0.1 K/mm3 (0.0-0.1) 04/24/19 04:53 Add Manual Diff Complete 04/23/19 Unknown Total Counted 100 04/23/19 Unknown Seg Neutrophils % 90.0 % (40.0-70.0) H 04/24/19 04:53 Seg Neuts % (Manual) 96.0 % (40.0-70.0) H 04/23/19 Unknown Band Neutrophils % 0 % 04/23/19 Unknown Lymphocytes % (Manual) 2.0 % (13.4-35.0) L 04/23/19 Unknown Reactive Lymphs % (Man) 0 % 04/23/19 Unknown Monocytes % (Manual) 2.0 % (0.0-7.3) 04/23/19 Unknown Eosinophils % (Manual) 0 % (0.0-4.3) 04/23/19 Unknown Basophils % (Manual) 0 % (0.0-1.8) 04/23/19 Unknown Metamyelocytes % 0 % 04/23/19 Unknown Myelocytes % 0 % 04/23/19 Unknown Promyelocytes % 0 % 04/23/19 Unknown Blast Cells % 0 % 04/23/19 Unknown Nucleated RBC % Not Reportable 04/23/19 Unknown Seg Neutrophils # 15.0 K/mm3 (1.8-7.7) H 04/24/19 04:53 Seg Neutrophils # Man 17.0 K/mm3 (1.8-7.7) H 04/23/19 Unknown Band Neutrophils # 0.0 K/mm3 04/23/19 Unknown Lymphocytes # (Manual) 0.4 K/mm3 (1.2-5.4) L 04/23/19 Unknown Abs React Lymphs (Man) 0.0 K/mm3 04/23/19 Unknown Monocytes # (Manual) 0.4 K/mm3 (0.0-0.8) 04/23/19 Unknown Eosinophils # (Manual) 0.0 K/mm3 (0.0-0.4) 04/23/19 Unknown Basophils # (Manual) 0.0 K/mm3 (0.0-0.1) 04/23/19 Unknown Metamyelocytes # 0.0 K/mm3 04/23/19 Unknown Myelocytes # 0.0 K/mm3 04/23/19 Unknown Promyelocytes # 0.0 K/mm3 04/23/19 Unknown Blast Cells # 0.0 K/mm3 04/23/19 Unknown WBC Morphology Not Reportable 04/23/19 Unknown Hypersegmented Neuts Not Reportable 04/23/19 Unknown Hyposegmented Neuts Not Reportable 04/23/19 Unknown Hypogranular Neuts Not Reportable 04/23/19 Unknown Smudge Cells Not Reportable 04/23/19 Unknown Toxic Granulation Not Reportable 04/23/19 Unknown Toxic Vacuolation Not Reportable 04/23/19 Unknown Dohle Bodies Not Reportable 04/23/19 Unknown Pelger-Huet Anomaly Not Reportable 04/23/19 Unknown Julieta Rods Not Reportable 04/23/19 Unknown Platelet Estimate Consistent w auto 04/23/19 Unknown Clumped Platelets Not Reportable 04/23/19 Unknown Plt Clumps, EDTA Not Reportable 04/23/19 Unknown Large Platelets Not Reportable 04/23/19 Unknown Giant Platelets Not Reportable 04/23/19 Unknown Platelet Satelliting Not Reportable 04/23/19 Unknown Plt Morphology Comment Not Reportable 04/23/19 Unknown RBC Morphology Not Reportable 04/23/19 Unknown Dimorphic RBCs Not Reportable 04/23/19 Unknown Polychromasia Not Reportable 04/23/19 Unknown Hypochromasia Not Reportable 04/23/19 Unknown Poikilocytosis Not Reportable 04/23/19 Unknown Anisocytosis Few 04/23/19 Unknown Microcytosis Not Reportable 04/23/19 Unknown Macrocytosis Not Reportable 04/23/19 Unknown Spherocytes Not Reportable 04/23/19 Unknown Pappenheimer Bodies Not Reportable 04/23/19 Unknown Sickle Cells Not Reportable 04/23/19 Unknown Target Cells Not Reportable 04/23/19 Unknown Tear Drop Cells Not Reportable 04/23/19 Unknown Ovalocytes Not Reportable 04/23/19 Unknown Helmet Cells Not Reportable 04/23/19 Unknown Villasenor-Kenmar Bodies Not Reportable 04/23/19 Unknown Edwards Rings Not Reportable 04/23/19 Unknown Omro Cells Not Reportable 04/23/19 Unknown Bite Cells Not Reportable 04/23/19 Unknown Crenated Cell Not Reportable 04/23/19 Unknown Elliptocytes Not Reportable 04/23/19 Unknown Acanthocytes (Spur) Not Reportable 04/23/19 Unknown Rouleaux Not Reportable 04/23/19 Unknown Hemoglobin C Crystals Not Reportable 04/23/19 Unknown Schistocytes Not Reportable 04/23/19 Unknown Malaria parasites Not Reportable 04/23/19 Unknown Seun Bodies Not Reportable 04/23/19 Unknown Hem Pathologist Commnt No 04/23/19 Unknown PT 12.9 Sec. (12.2-14.9) 04/23/19 08:01 INR 1.00 (0.87-1.13) 04/23/19 08:01 APTT 31.2 Sec. (24.2-36.6) 04/23/19 08:01 Sodium 135 mmol/L (137-145) L 04/24/19 04:53 Potassium 3.5 mmol/L (3.6-5.0) L 04/24/19 04:53 Chloride 101.0 mmol/L (98-107) 04/24/19 04:53 Carbon Dioxide 18 mmol/L (22-30) L 04/24/19 04:53 Anion Gap 20 mmol/L 04/24/19 04:53 BUN 8 mg/dL (9-20) L 04/24/19 04:53 Creatinine 0.7 mg/dL (0.8-1.5) L 04/24/19 04:53 Estimated GFR > 60 ml/min 04/24/19 04:53 BUN/Creatinine Ratio 11 % 04/24/19 04:53 Glucose 96 mg/dL (75-100) 04/24/19 04:53 Hemoglobin A1c 5.3 % (4-6) 04/23/19 20:20 Calcium 7.8 mg/dL (8.4-10.2) L 04/24/19 04:53 Phosphorus 1.40 mg/dL (2.5-4.5) L 04/24/19 07:10 Magnesium 1.60 mg/dL (1.7-2.3) L 04/24/19 07:10 Total Bilirubin 1.20 mg/dL (0.1-1.2) 04/24/19 04:53 AST 81 units/L (5-40) H 04/24/19 04:53 ALT 45 units/L (7-56) 04/24/19 04:53 Alkaline Phosphatase 145 units/L (35-129) H 04/24/19 04:53 Total Protein 6.5 g/dL (6.3-8.2) 04/24/19 04:53 Albumin 3.1 g/dL (3.9-5) L 04/24/19 04:53 Albumin/Globulin Ratio 0.9 % 04/24/19 04:53 Lipase 211 units/L (13-60) H 04/24/19 07:10 Urine Color [place] (Yellow) 04/23/19 Unknown Urine Turbidity Slightly-cloudy (Clear) 04/23/19 Unknown Urine pH 5.0 (5.0-7.0) 04/23/19 Unknown Ur Specific [place] 1.032 (1.003-1.030) H 04/23/19 Unknown Urine Protein 100 mg/dl mg/dL (Negative) 04/23/19 Unknown Urine Glucose (UA) Neg mg/dL (Negative) 04/23/19 Unknown Urine Ketones 20 mg/dL (Negative) 04/23/19 Unknown Urine Blood Sm (Negative) 04/23/19 Unknown Urine Nitrite Neg (Negative) 04/23/19 Unknown Urine Bilirubin Neg (Negative) 04/23/19 Unknown Urine Ictotest Positive (Negative) 04/23/19 10:36 Urine Urobilinogen < 2.0 mg/dL (<2.0) 04/23/19 Unknown Ur Leukocyte Esterase Neg (Negative) 04/23/19 Unknown Urine WBC (Auto) 4.0 /HPF (0.0-6.0) 04/23/19 Unknown Urine RBC (Auto) 6.0 /HPF (0.0-6.0) 04/23/19 Unknown U Epithel Cells (Auto) < 1.0 /HPF (0-13.0) 04/23/19 10:36 Urine Bacteria (Auto) 1+ /HPF (Negative) 04/23/19 Unknown Urine Mucus 3+ /HPF 04/23/19 Unknown Urine Opiates Screen Presumptive negative 04/23/19 10:36 Urine Methadone Screen Presumptive negative 04/23/19 10:36 Ur Barbiturates Screen Presumptive negative 04/23/19 10:36 Ur Phencyclidine Scrn Presumptive negative 04/23/19 10:36 Ur Amphetamines Screen Presumptive negative 04/23/19 10:36 U Benzodiazepines Scrn Presumptive negative 04/23/19 10:36 Urine Cocaine Screen Presumptive negative 04/23/19 10:36 U Marijuana (THC) Screen Presumptive negative 04/23/19 10:36 Drugs of Abuse Note Disclamer 04/23/19 10:36 Hepatitis A IgM Ab Non-reactive (NonReactive) 04/24/19 07:10 Hep Bs Antigen Non-reactive (Negative) 04/24/19 07:10 Hep B Core IgM Ab Non-reactive (NonReactive) 04/24/19 07:10 Hepatitis C Antibody Non-reactive (NonReactive) 04/24/19 07:10 Active Medications - Current Medications Current Medications: Generic Name Dose Route Start Last Admin Trade Name Freq PRN Reason Stop Dose Admin Acetaminophen 650 mg 04/23/19 19:48 04/24/19 04:56 Tylenol PO 650 mg Q4H PRN Administration Pain MILD(1-3)/Fever >100.5/GUILLAUME Acetaminophen 650 mg 04/24/19 17:14 04/24/19 17:46 Tylenol [place] 650 mg Q4H PRN Administration Pain, Mild (1-3) Clonidine HCl 0.2 mg 04/24/19 12:00 04/24/19 12:33 Catapres-Tts Patch TD 0.2 mg Th DEVI Administration Haloperidol Lactate 5 mg 04/24/19 09:23 04/25/19 02:12 Haldol IV 5 mg Q1H PRN Administration Unrespon. to mult. doses BZD's Cefepime HCl 2 gm in 100 mls @ 200 mls/hr 04/23/19 22:00 04/25/19 05:45 Cefepime/Ns 2 Gm/100 Ml IV 200 mls/hr Q8HR DEVI Administration Protocol Sodium Chloride 1,000 mls @ 200 mls/hr 04/23/19 23:45 04/25/19 02:12 Nacl 0.9% 1000 Ml IV 200 mls/hr DIRECT DEVI Administration Dexmedetomidine HCl 400 mcg/ 104 mls @ 4.55 mls/hr 04/24/19 11:00 04/25/19 05:57 Sodium Chloride IV 1 mcg/kg/hr TITRATE DEVI 22.75 mls/hr Administration Protocol 0.2 MCG/KG/HR Thiamine HCl 100 mg/ Sodium 51 mls @ 100 mls/hr 04/24/19 13:00 04/24/19 13:12 Chloride IV 100 mls/hr QDAY DEVI Administration Lorazepam 4 mg 04/23/19 10:39 04/24/19 09:10 Ativan IV 4 mg Q15MIN PRN Administration CIWA-Ar >25 Lorazepam 4 mg 04/23/19 10:39 04/25/19 04:44 Ativan IV 4 mg Q1HR PRN Administration CIWA-Ar 16-25 Lorazepam 2 mg 04/23/19 10:39 04/25/19 02:30 Ativan IV 2 mg Q1HR PRN Administration CIWA-Ar 8-15 Metoclopramide HCl 10 mg 04/23/19 19:48 Reglan IV Q6H PRN Nausea And Vomiting Metoprolol Tartrate 5 mg 04/24/19 10:00 04/25/19 05:43 Metoprolol IV 5 mg Q6HR DEVI Administration Morphine Sulfate 1 mg 04/24/19 10:42 Morphine IV Q6HR PRN Pain, Moderate (4-6) Morphine Sulfate 2 mg 04/24/19 10:42 Morphine IV Q6H PRN Pain , Severe (7-10) Ondansetron HCl 4 mg 04/23/19 19:48 Zofran IV Q3H PRN Nausea And Vomiting Sodium Chloride 10 ml 04/23/19 22:00 04/24/19 21:44 Sodium Chloride Flush Syringe 10 Ml IV 10 ml BID DEVI Administration Sodium Chloride 10 ml 04/23/19 19:48 Sodium Chloride Flush Syringe 10 Ml IV PRN PRN LINE FLUSH
[2019-04-25 09:09] LABS: INR 1.1 (0.87-1.13)
[2019-04-25] MEDS: THIAMINE 100 MG in SODIUM CHLORIDE 0.9% 50 ML IV SCH (09:14)
[2019-04-25] MEDS: ACETAMINOPHEN 650 MG RECT SUPP PR PRN ×2 (09:16→17:37)
[2019-04-25 09:25] LABS: BUN/Creatinine Ratio 13; Blood Urea Nitrogen 9 mg/dL (9-20); Calcium 8.4 mg/dL (8.4-10.2); Hemolysis Index 33
[2019-04-25 09:27] LABS: Albumin 3.2 g/dL (3.9-5); Bilirubin,Direct 0.5 mg/dL (0-0.2)
[2019-04-25 10:03] LABS: C-Reactive Protein 39.7 mg/dL (0.00-1.30)
--- NOTE | 2019-04-25 10:15 | Gastroenterology Progress Note ---
Assessment and Plan - Patient Problems (1) Alcohol abuse Current Visit: Yes Status: Acute Plan to address problem: - Continue CIWA; appears to be in florid DTs at present, exacerbated by pancreatitis. - Thiamine/folate IV. (2) Gallstones Current Visit: Yes Status: Acute (3) Pancreatitis Current Visit: Yes Status: Acute Plan to address problem: - Unclear if EtOH or gallstones; currently no necrosis, and hct/creatinine improved. - Continue aggressive hydration and other supportive care (including CIWA). - CBD not dilated on imaging, and LFTs improving, no role for ERCP at present. - Will need surgical consult when pancreatitis improves, as would recommend cholecystectomy (though pancreatitis may also be due to EtOH). Subjective Date of service: 04/25/19 Principal diagnosis: Pancreatitis Interval history: The patient is more alert, but tremulous and disoriented today. Good urine OP o vernight, and no severe fevers. No emesis noted. Not oriented enough to ask about pain, but requesting liquids. Objective - Constitutional Vitals: Temp Pulse Resp BP Pulse Ox 101.6 F H 107 H 39 H 148/106 100 04/25/19 08:00 04/25/19 10:00 04/25/19 10:00 04/25/19 10:00 04/25/19 10:00 General appearance: mild distress - Respiratory Respiratory effort: normal Respiratory: bilateral: CTA - Cardiovascular Heart Rate: 120 Rhythm: regular Heart Sounds: Present: S1 & S2 - Gastrointestinal General gastrointestinal: Present: soft, non-tender, distended - Neurologic Neurological: disoriented, other (Tremulous) - Labs CBC & Chem 7: 04/24/19 04:53 04/25/19 07:50 Labs: Laboratory Results - last 24 hr 04/25/19 04/25/19 04/25/19 07:50 07:50 07:50 PT 14.1 INR 1.10 Sodium 137 Potassium 4.1 Chloride 106.4 Carbon Dioxide 14 L Anion Gap 21 BUN 9 Creatinine 0.7 L Estimated GFR > 60 BUN/Creatinine Ratio 13 Glucose 71 L Calcium 8.4 Phosphorus 2.10 L D Magnesium 2.60 H Total Bilirubin 1.20 Direct Bilirubin 0.5 H Indirect Bilirubin 0.7 AST 84 H ALT 43 Alkaline Phosphatase 159 H C-Reactive Protein 39.70 H Total Protein 6.3 Albumin 3.2 L Albumin/Globulin Ratio 1.0 Triglycerides 157 H
--- NOTE | 2019-04-25 11:38 | Progress Note ---
Assessment and Plan 29 y/o male with acute pancreatitis and ETOH withdrawal 1. IVF hydration, will continue this. 2. Blood pressure control 3. Continue precedex to help with agitation and other withdrawal symptoms. 4. Monitor calcium, glucose and other electrolytes 5. Continue NPO status Updated family CCT 31 minutes Subjective Date of service: 04/25/19 Principal diagnosis: Pancreatitis Interval history: More alert today. Tolerating Precedex well. Still getting Ativan and Haldol therapy as well. Family at bedside. updated them. Reviewed GI note as well. Objective - Constitutional Vitals: Vital Signs - 12hr 04/25/19 04/25/19 04/25/19 00:00 00:30 01:00 Temperature Pulse Rate 99 H 102 H 105 H Respiratory 38 H 32 H 36 H Rate Blood Pressure 137/96 145/100 152/104 O2 Sat by Pulse 100 100 100 Oximetry 04/25/19 04/25/19 04/25/19 01:30 02:00 02:30 Temperature Pulse Rate 104 H 111 H 112 H Respiratory 37 H 24 35 H Rate Blood Pressure 150/97 147/103 166/118 O2 Sat by Pulse 100 86 98 Oximetry 04/25/19 04/25/19 04/25/19 03:00 03:30 04:00 Temperature Pulse Rate 104 H 105 H 105 H Respiratory 42 H 21 37 H Rate Blood Pressure 143/102 149/104 149/100 O2 Sat by Pulse 99 100 99 Oximetry 04/25/19 04/25/19 04/25/19 04:30 05:00 05:30 Temperature Pulse Rate 105 H 104 H 105 H Respiratory 35 H 14 15 Rate Blood Pressure 150/104 145/108 150/109 O2 Sat by Pulse 99 100 100 Oximetry 04/25/19 04/25/19 04/25/19 05:43 06:00 06:30 Temperature Pulse Rate 105 H 106 H 107 H Respiratory 18 34 H Rate Blood Pressure 150/109 151/100 148/111 O2 Sat by Pulse 100 98 Oximetry 04/25/19 04/25/19 04/25/19 07:00 07:30 08:00 Temperature 101.6 F H Pulse Rate 107 H 108 H 108 H Respiratory 37 H 22 39 H Rate Blood Pressure 145/103 146/102 151/105 O2 Sat by Pulse 99 100 96 Oximetry 04/25/19 04/25/19 04/25/19 08:16 08:30 09:00 Temperature Pulse Rate 109 H 111 H Respiratory 23 39 H Rate Blood Pressure 147/100 156/104 O2 Sat by Pulse 100 99 Oximetry 04/25/19 04/25/19 09:30 10:00 Temperature Pulse Rate 112 H 107 H Respiratory 31 H 39 H Rate Blood Pressure 160/109 148/106 O2 Sat by Pulse 99 100 Oximetry - Labs CBC & Chem 7: 04/24/19 04:53 04/25/19 07:50 Labs: Abnormal lab results 04/25/19 04/25/19 Range/Units 07:50 07:50 Carbon Dioxide 14 L (22-30) mmol/L Creatinine 0.7 L (0.8-1.5) mg/dL Glucose 71 L (75-100) mg/dL Phosphorus 2.10 L D (2.5-4.5) mg/dL Magnesium 2.60 H (1.7-2.3) mg/dL Direct Bilirubin 0.5 H (0-0.2) mg/dL AST 84 H (5-40) units/L Alkaline Phosphatase 159 H (35-129) units/L C-Reactive Protein 39.70 H (0.00-1.30) mg/dL Albumin 3.2 L (3.9-5) g/dL Triglycerides 157 H (2-149) mg/dL Medications & Allergies - Medications Allergies/Adverse Reactions: Allergies No Known Allergies Allergy (Unverified 09/22/15 14:21) Home Medications: Home Medications Medication Instructions Recorded Confirmed Last Taken Type Acetaminophen/Codeine [Tylenol #3] 1 tab PO Q6H PRN #15 tab 09/22/15 04/23/19 Unknown Rx Cyclobenzaprine [Flexeril 10 MG 10 mg PO TID PRN #12 tablet 09/22/15 04/23/19 Unknown Rx TAB] Ibuprofen [Motrin 800 MG tab] 800 mg PO Q8HR PRN #30 tablet 09/22/15 04/23/19 Unknown Rx Amlodipine Besylate [Norvasc] 5 mg PO DAILY 04/23/19 04/23/19 04/21/19 History 5 mg Active Medications: Generic Name Dose Route Start Last Admin Trade Name Freq PRN Reason Stop Dose Admin Acetaminophen 650 mg 04/23/19 19:48 04/24/19 04:56 Tylenol PO 650 mg Q4H PRN Administration Pain MILD(1-3)/Fever >100.5/GUILLAUME Acetaminophen 650 mg 04/24/19 17:14 04/25/19 09:16 Tylenol [place] 650 mg Q4H PRN Administration Pain, Mild (1-3) Clonidine HCl 0.2 mg 04/24/19 12:00 04/24/19 12:33 Catapres-Tts Patch TD 0.2 mg Th DEVI Administration Haloperidol Lactate 5 mg 04/24/19 09:23 04/25/19 08:53 Haldol IV 5 mg Q1H PRN Administration Unrespon. to mult. doses BZD's Cefepime HCl 2 gm in 100 mls @ 200 mls/hr 04/23/19 22:00 04/25/19 05:45 Cefepime/Ns 2 Gm/100 Ml IV 200 mls/hr Q8HR DEVI Administration Protocol Sodium Chloride 1,000 mls @ 200 mls/hr 04/23/19 23:45 04/25/19 09:19 Nacl 0.9% 1000 Ml IV 200 mls/hr DIRECT DEVI Administration Dexmedetomidine HCl 400 mcg/ 104 mls @ 4.55 mls/hr 04/24/19 11:00 04/25/19 08:55 Sodium Chloride IV 1.1 mcg/kg/hr TITRATE DEVI 25.025 mls/hr Titration Protocol 0.2 MCG/KG/HR Thiamine HCl 100 mg/ Sodium 51 mls @ 100 mls/hr 04/24/19 13:00 04/25/19 09:14 Chloride IV 100 mls/hr QDAY DEVI Administration Folic Acid 1 mg/ Sodium 50.2 mls @ 200.8 mls/hr 04/26/19 10:00 Chloride IV QDAY DEVI Lorazepam 4 mg 04/23/19 10:39 04/25/19 09:14 Ativan IV 4 mg Q15MIN PRN Administration CIWA-Ar >25 Lorazepam 4 mg 04/23/19 10:39 04/25/19 04:44 Ativan IV 4 mg Q1HR PRN Administration CIWA-Ar 16-25 Lorazepam 2 mg 04/23/19 10:39 04/25/19 02:30 Ativan IV 2 mg Q1HR PRN Administration CIWA-Ar 8-15 Metoclopramide HCl 10 mg 04/23/19 19:48 Reglan IV Q6H PRN Nausea And Vomiting Metoprolol Tartrate 5 mg 04/24/19 10:00 04/25/19 05:43 Metoprolol IV 5 mg Q6HR DEVI Administration Morphine Sulfate 1 mg 04/24/19 10:42 Morphine IV Q6HR PRN Pain, Moderate (4-6) Morphine Sulfate 2 mg 04/24/19 10:42 Morphine IV Q6H PRN Pain , Severe (7-10) Ondansetron HCl 4 mg 04/23/19 19:48 Zofran IV Q3H PRN Nausea And Vomiting Pantoprazole Sodium 40 mg 04/25/19 12:00 Protonix IV QDAY DEVI Sodium Chloride 10 ml 04/23/19 22:00 04/25/19 09:14 Sodium Chloride Flush Syringe 10 Ml IV 10 ml BID DEVI Administration Sodium Chloride 10 ml 04/23/19 19:48 Sodium Chloride Flush Syringe 10 Ml IV PRN PRN LINE FLUSH
[2019-04-25] MEDS: PANTOPRAZOLE 40 MG INJ IV SCH (13:00)
--- NOTE | 2019-04-25 13:11 | Consultation ---
History of Present Illness - Reason for Consult Consult date: 04/25/19 Fever, SIRS v/s sepsis, acute pancreatitis Requesting physician: SALMA PRESTON - History of Present Illness The patient is a 29-year-old male with hypertension and ongoing alcohol abuse came to the emergency room on 04/23/2019 with complaints of abdominal pain. He is a heavy drinker, reported abdominal pain for 2 days prior to admission. Workup in the ER revealed findings concerning for acute pancreatitis with elevated lipase as well as CT findings of acute pancreatitis. He was found to have gallstones but no biliary ductal dilatation. GI is following. Infectious diseases was consulted due to patient having fevers and leukocytosis. Currently sleepy, getting ativan due to withdrawal. Review of Systems: Unable to obtain, patient confused Past History Past Medical History: hypertension, other Past Surgical History: Other (right wrist) Social history: alcohol abuse. denies: smoking Family history: other (unable to obtain due to mental status) Medications and Allergies Allergies Allergy/AdvReac Type Severity Reaction Status Date / Time No Known Allergies Allergy Unverified 09/22/15 14:21 Home Medications Medication Instructions Recorded Confirmed Last Taken Type Acetaminophen/Codeine [Tylenol #3] 1 tab PO Q6H PRN #15 tab 09/22/15 04/23/19 Unknown Rx Cyclobenzaprine [Flexeril 10 MG 10 mg PO TID PRN #12 tablet 09/22/15 04/23/19 Unknown Rx TAB] Ibuprofen [Motrin 800 MG tab] 800 mg PO Q8HR PRN #30 tablet 09/22/15 04/23/19 Unknown Rx Amlodipine Besylate [Norvasc] 5 mg PO DAILY 04/23/19 04/23/19 04/21/19 History 5 mg Active Meds: Active Medications Acetaminophen (Tylenol) 650 mg PO Q4H PRN PRN Reason: Pain MILD(1-3)/Fever >100.5/GUILLAUME Last Admin: 04/24/19 04:56 Dose: 650 mg Documented by: Acetaminophen (Tylenol) 650 mg [place] Q4H PRN PRN Reason: Pain, Mild (1-3) Last Admin: 04/25/19 09:16 Dose: 650 mg Documented by: Clonidine HCl (Catapres-Tts Patch) 0.2 mg TD Th [facility] Last Admin: 04/24/19 12:33 Dose: 0.2 mg Documented by: Haloperidol Lactate (Haldol) 5 mg IV Q1H PRN PRN Reason: Unrespon. to mult. doses BZD's Last Admin: 04/25/19 08:53 Dose: 5 mg Documented by: Cefepime HCl (Cefepime/Ns 2 Gm/100 Ml) 2 gm in 100 mls @ 200 mls/hr IV Q8HR DEVI; Protocol Last Admin: 04/25/19 05:45 Dose: 200 mls/hr Documented by: Sodium Chloride (Nacl 0.9% 1000 Ml) 1,000 mls @ 200 mls/hr IV DIRECT DEVI Last Admin: 04/25/19 09:19 Dose: 200 mls/hr Documented by: Dexmedetomidine HCl 400 mcg/ (Sodium Chloride) 104 mls @ 4.55 mls/hr IV TITRATE DEVI; Protocol Last Titration: 04/25/19 08:55 Dose: 1.1 mcg/kg/hr, 25.025 mls/hr Documented by: Thiamine HCl 100 mg/ Sodium (Chloride) 51 mls @ 100 mls/hr IV QDAY DEVI Last Admin: 04/25/19 09:14 Dose: 100 mls/hr Documented by: Folic Acid 1 mg/ Sodium (Chloride) 50.2 mls @ 200.8 mls/hr IV QDAY DEVI Lorazepam (Ativan) 4 mg IV Q15MIN PRN PRN Reason: CIWA-Ar >25 Last Admin: 04/25/19 09:14 Dose: 4 mg Documented by: Lorazepam (Ativan) 4 mg IV Q1HR PRN PRN Reason: CIWA-Ar 16-25 Last Admin: 04/25/19 04:44 Dose: 4 mg Documented by: Lorazepam (Ativan) 2 mg IV Q1HR PRN PRN Reason: CIWA-Ar 8-15 Last Admin: 04/25/19 02:30 Dose: 2 mg Documented by: Metoclopramide HCl (Reglan) 10 mg IV Q6H PRN PRN Reason: Nausea And Vomiting Metoprolol Tartrate (Metoprolol) 5 mg IV Q6HR DEVI Last Admin: 04/25/19 05:43 Dose: 5 mg Documented by: Morphine Sulfate (Morphine) 1 mg IV Q6HR PRN PRN Reason: Pain, Moderate (4-6) Morphine Sulfate (Morphine) 2 mg IV Q6H PRN PRN Reason: Pain , Severe (7-10) Ondansetron HCl (Zofran) 4 mg IV Q3H PRN PRN Reason: Nausea And Vomiting Pantoprazole Sodium (Protonix) 40 mg IV QDAY [facility] Sodium Chloride (Sodium Chloride Flush Syringe 10 Ml) 10 ml IV BID [facility] Last Admin: 04/25/19 09:14 Dose: 10 ml Documented by: Sodium Chloride (Sodium Chloride Flush Syringe 10 Ml) 10 ml IV PRN PRN PRN Reason: LINE FLUSH Physical Examination - Physical Exam Narrative exam: Physical Exam: Constitutional: drowsy, sedated. No acute distress Head, Ears, Nose: Normocephalic, atraumatic. External ears, nose normal Eyes: Conjunctivae/corneas clear. No icterus. No ptosis. Neck: Supple, no meningeal signs Oral: unable to examine Cardiovascular: S1, S2 normal. Respiratory: Good air entry, clear to auscultation bilaterally GI: distended, tender, bowel sounds + Musculoskeletal: No pedal edema, no cyanosis. Skin: No rash or abscess Hem/Lymphatic: No palpable cervical or supraclavicular nodes. No lymphangitis Psych: Mood ok. Affect normal Neurological: Awake, alert, oriented. No gross abnormality - Constitutional Vitals: Vital Signs Temp Pulse Resp BP Pulse Ox 101.5 F H 107 H 39 H 148/106 100 04/25/19 12:00 04/25/19 10:00 04/25/19 10:00 04/25/19 10:00 04/25/19 10:00 Temperature -Last 24 Hours Temperature 101.5 F Temperature 101.6 F Temperature 98.9 F Temperature 102.6 F Results - Labs CBC & Chem 7: 04/24/19 04:53 04/25/19 07:50 Labs: Abnormal lab results 04/25/19 04/25/19 Range/Units 07:50 07:50 Carbon Dioxide 14 L (22-30) mmol/L Creatinine 0.7 L (0.8-1.5) mg/dL Glucose 71 L (75-100) mg/dL Phosphorus 2.10 L D (2.5-4.5) mg/dL Magnesium 2.60 H (1.7-2.3) mg/dL Direct Bilirubin 0.5 H (0-0.2) mg/dL AST 84 H (5-40) units/L Alkaline Phosphatase 159 H (35-129) units/L C-Reactive Protein 39.70 H (0.00-1.30) mg/dL Albumin 3.2 L (3.9-5) g/dL Triglycerides 157 H (2-149) mg/dL - Imaging and Cardiology CT scan - abdomen: report reviewed, image reviewed (acute pancreatitis, cholelithiasis.) Assessment and Plan Cultures: 04/23/2019 blood culture: No growth A/P: 29-year-old male with hypertension and ongoing alcohol abuse admitted with: 1) SIRS secondary to acute pancreatitis. No evidence of pancreatic necrosis or infected pseudocyst on CT imaging. Etiology of pancreatitis is likely alcohol +/- gall stones, but no evidence of biliary ductal dilatation, LFTs minimally elevated. Blood cultures with no growth. No abx needed at this time. 2) Alcohol abuse with fatty liver and withdrawal: on CICT protocol. 3) Cholelithiasis: will need GB surgery in the future. Recs: d/karen abx continue to monitor fever and WBC supportive care for acute pancreatitis d/w Dr. Preston. Trisha Atkins MD, FACP [facility] C: [phone] O: [phone] F: [phone]
[2019-04-25] MEDS: MORPHINE 2 MG/1 ML INJ IV PRN (16:01)
[2019-04-25] MEDS ORDERED: SODIUM PHOSPHATE 30 MMOL in SODIUM CHLORIDE 0.9% 500 ML 500 ML IV ONE (22:06)
[2019-04-26] MEDS: METOPROLOL TARTRATE 5 MG/5 ML INJ IV SCH ×4 (01:11→23:17)
[2019-04-26] MEDS: LORazepam 2 MG/ML VIAL IV PRN ×7 (01:13→22:01)
[2019-04-26] MEDS ORDERED: FUROSEMIDE 40 MG/4 ML INJ IV ONE (03:15)
--- NOTE | 2019-04-26 04:17 | Event Note ---
Date: 04/26/19 Called to bedside to assess patient. As per nurse patient had respiratory rate in the 40s. On auscultation patient had scattered crackles. Decreased rate of phosphorus infusion to 75 mL/hr, patient placed on any mask 20% FiO2. pH 7.37/27/80/16.2. Respirations in the low to mid 20s . Ordered one-time dose IV Lasix 40 mg.
[2019-04-26 05:41] LABS: Hematocrit 40.9 % (35.5-45.6); Hemoglobin 13.6 gm/dl (11.8-15.2); Mean Corpuscular HGB Conc 33 % (32-34); Mean Corpuscular Volume 91 fl (84-94); Red Blood Count 4.48 M/mm3 (3.65-5.03); Red Cell Distribution Width 13.2 % (13.2-15.2)
[2019-04-26 05:43] LABS: Platelet Count 90 K/mm3 (140-440)
[2019-04-26 05:56] LABS: Alanine Aminotransferase 45 units/L (7-56); Albumin 3.1 g/dL (3.9-5); BUN/Creatinine Ratio 11; Blood Urea Nitrogen 8 mg/dL (9-20); Calcium 9.1 mg/dL (8.4-10.2); Hemolysis Index 10
[2019-04-26 06:43] LABS: Total Cells Counted 100
[2019-04-26 06:44] LABS: Basophils % (Manual) 0 % (0.0-1.8); Eosinophils % (Manual) 0 % (0.0-4.3)
[2019-04-26 06:45] LABS: Large Platelets 1+; Platelet Estimate Appears Decreased
[2019-04-26 06:46] LABS: RBC Morphology Normal
[2019-04-26] MEDS ORDERED: hydrALAZINE 20 MG/1 ML INJ IV PRN (07:12)
--- NOTE | 2019-04-26 07:25 | Progress Note ---
Assessment and Plan 29 y/o male with acute pancreatitis and ETOH withdrawal 1. No further lasix therapy, will ask IMS to pass this on to the cross cover at night. Will hold fluids for today but will likely restart fluids with D5W tomorrow as patient is NPO 2. Blood pressure control, added PRN hydralazine with parameters, changed patch to 0.3. 3. Continue precedex to help with agitation and other withdrawal symptoms. 4. Monitor calcium, glucose and other electrolytes 5. Continue NPO status for now. Will recheck amylase and lipase today. Updated family CCT 31 minutes Subjective Date of service: 04/26/19 Principal diagnosis: Pancreatitis Interval history: last night IMS called secondary to increase in labor of breathing. Patient has been tachypnic since admission. Concern for fluid overload so lasix given. PT BP was elevated throughout night. Family at bedside. Patient placed on venti mask. ABG was fine. Objective - Constitutional Vitals: Vital Signs - 12hr 04/25/19 04/25/19 04/25/19 19:30 20:00 20:30 Temperature 98.4 F Pulse Rate 115 H 113 H 112 H Respiratory 24 35 H 19 Rate Blood Pressure 170/111 157/113 163/117 O2 Sat by Pulse 98 Oximetry 04/25/19 04/25/19 04/25/19 21:00 21:30 22:00 Temperature Pulse Rate 110 H 108 H 112 H Respiratory 20 13 23 Rate Blood Pressure 174/117 170/115 168/113 O2 Sat by Pulse Oximetry 04/25/19 04/25/19 04/25/19 22:30 22:31 22:33 Temperature Pulse Rate 107 H 108 H Respiratory 15 15 Rate Blood Pressure 171/116 171/116 O2 Sat by Pulse 98 Oximetry 04/25/19 04/25/19 04/26/19 23:00 23:30 00:00 Temperature 100.2 F H Pulse Rate 108 H 108 H 107 H Respiratory 16 21 33 H Rate Blood Pressure 166/115 160/118 169/119 O2 Sat by Pulse 95 95 Oximetry 04/26/19 04/26/19 04/26/19 00:30 01:00 01:11 Temperature Pulse Rate 107 H 107 H 106 H Respiratory 27 H 33 H Rate Blood Pressure 164/113 166/112 166/112 O2 Sat by Pulse 94 96 Oximetry 04/26/19 04/26/19 04/26/19 01:30 02:00 02:30 Temperature Pulse Rate 109 H 109 H 108 H Respiratory 35 H 41 H 35 H Rate Blood Pressure 162/117 168/116 183/124 O2 Sat by Pulse 97 96 93 Oximetry 04/26/19 04/26/19 04/26/19 03:01 03:31 04:00 Temperature 99.7 F H Pulse Rate 109 H 110 H 107 H Respiratory 32 H 18 45 H Rate Blood Pressure 177/123 169/115 143/103 O2 Sat by Pulse 99 100 Oximetry 04/26/19 04/26/19 04/26/19 04:30 05:01 05:30 Temperature Pulse Rate 108 H 108 H 109 H Respiratory 49 H 23 39 H Rate Blood Pressure 148/97 153/106 143/98 O2 Sat by Pulse 97 98 Oximetry 04/26/19 04/26/19 06:00 06:10 Temperature Pulse Rate 109 H 108 H Respiratory 48 H Rate Blood Pressure 139/93 139/93 O2 Sat by Pulse 98 Oximetry - Labs CBC & Chem 7: 04/26/19 04:45 04/26/19 04:45 Labs: Abnormal lab results 04/25/19 04/25/19 04/26/19 Range/Units 07:50 07:50 03:21 WBC (4.5-11.0) K/mm3 Plt Count (140-440) K/mm3 Seg Neuts % (Manual) (40.0-70.0) % Lymphocytes % (Manual) (13.4-35.0) % Seg Neutrophils # Man (1.8-7.7) K/mm3 Lymphocytes # (Manual) (1.2-5.4) K/mm3 Monocytes # (Manual) (0.0-0.8) K/mm3 POC ABG pCO2 27.8 L (35-45) Carbon Dioxide 14 L (22-30) mmol/L BUN (9-20) mg/dL Creatinine 0.7 L (0.8-1.5) mg/dL Glucose 71 L (75-100) mg/dL Phosphorus 2.10 L D (2.5-4.5) mg/dL Magnesium 2.60 H (1.7-2.3) mg/dL Direct Bilirubin 0.5 H (0-0.2) mg/dL AST 84 H (5-40) units/L Alkaline Phosphatase 159 H (35-129) units/L C-Reactive Protein 39.70 H (0.00-1.30) mg/dL Albumin 3.2 L (3.9-5) g/dL Triglycerides 157 H (2-149) mg/dL 04/26/19 04/26/19 Range/Units 04:45 04:45 WBC 20.6 H (4.5-11.0) K/mm3 Plt Count 90 L (140-440) K/mm3 Seg Neuts % (Manual) 94.0 H (40.0-70.0) % Lymphocytes % (Manual) 1.0 L (13.4-35.0) % Seg Neutrophils # Man 19.4 H (1.8-7.7) K/mm3 Lymphocytes # (Manual) 0.2 L (1.2-5.4) K/mm3 Monocytes # (Manual) 1.0 H (0.0-0.8) K/mm3 POC ABG pCO2 (35-45) Carbon Dioxide 18 L (22-30) mmol/L BUN 8 L (9-20) mg/dL Creatinine 0.7 L (0.8-1.5) mg/dL Glucose (75-100) mg/dL Phosphorus (2.5-4.5) mg/dL Magnesium (1.7-2.3) mg/dL Direct Bilirubin (0-0.2) mg/dL AST 106 H (5-40) units/L Alkaline Phosphatase 142 H (35-129) units/L C-Reactive Protein 44.60 H (0.00-1.30) mg/dL Albumin 3.1 L (3.9-5) g/dL Triglycerides (2-149) mg/dL Medications & Allergies - Medications Allergies/Adverse Reactions: Allergies No Known Allergies Allergy (Unverified 09/22/15 14:21) Home Medications: Home Medications Medication Instructions Recorded Confirmed Last Taken Type Acetaminophen/Codeine [Tylenol #3] 1 tab PO Q6H PRN #15 tab 09/22/15 04/23/19 Unknown Rx Cyclobenzaprine [Flexeril 10 MG 10 mg PO TID PRN #12 tablet 09/22/15 04/23/19 Unknown Rx TAB] Ibuprofen [Motrin 800 MG tab] 800 mg PO Q8HR PRN #30 tablet 09/22/15 04/23/19 Unknown Rx Amlodipine Besylate [Norvasc] 5 mg PO DAILY 04/23/19 04/23/19 04/21/19 History 5 mg Active Medications: Generic Name Dose Route Start Last Admin Trade Name Freq PRN Reason Stop Dose Admin Acetaminophen 650 mg 04/24/19 17:14 04/25/19 17:37 Tylenol DC 650 mg Q4H PRN Administration Pain, Mild (1-3) Clonidine HCl 0.3 mg 04/26/19 10:00 Catapres-Tts Patch TD QWEEK DEVI Haloperidol Lactate 5 mg 04/24/19 09:23 04/25/19 19:30 Haldol IV 5 mg Q1H PRN Administration Unrespon. to mult. doses BZD's Hydralazine HCl 20 mg 04/26/19 07:12 Apresoline IV Q6H PRN Hypertension Sodium Chloride 1,000 mls @ 200 mls/hr 04/23/19 23:45 04/25/19 21:14 Nacl 0.9% 1000 Ml IV 200 mls/hr DIRECT DEVI Administration Dexmedetomidine HCl 400 mcg/ 104 mls @ 4.55 mls/hr 04/24/19 11:00 04/25/19 20:15 Sodium Chloride IV 1.4 mcg/kg/hr TITRATE DEVI 31.85 mls/hr Administration Protocol 0.2 MCG/KG/HR Thiamine HCl 100 mg/ Sodium 51 mls @ 100 mls/hr 04/24/19 13:00 04/25/19 09:14 Chloride IV 100 mls/hr QDAY DEVI Administration Folic Acid 1 mg/ Sodium 50.2 mls @ 200.8 mls/hr 04/26/19 10:00 Chloride IV QDAY DEVI Lorazepam 4 mg 04/23/19 10:39 04/26/19 02:48 Ativan IV 4 mg Q15MIN PRN Administration CIWA-Ar >25 Lorazepam 4 mg 04/23/19 10:39 04/26/19 01:13 Ativan IV 4 mg Q1HR PRN Administration CIWA-Ar 16-25 Lorazepam 2 mg 04/23/19 10:39 04/26/19 04:30 Ativan IV 2 mg Q1HR PRN Administration CIWA-Ar 8-15 Metoclopramide HCl 10 mg 04/23/19 19:48 Reglan IV Q6H PRN Nausea And Vomiting Metoprolol Tartrate 5 mg 04/24/19 10:00 04/26/19 06:10 Metoprolol IV 5 mg Q6HR DEVI Administration Morphine Sulfate 1 mg 04/24/19 10:42 04/25/19 16:00 Morphine IV 1 mg Q6HR PRN Administration Pain, Moderate (4-6) Morphine Sulfate 2 mg 04/24/19 10:42 Morphine IV Q6H PRN Pain , Severe (7-10) Ondansetron HCl 4 mg 04/23/19 19:48 Zofran IV Q3H PRN Nausea And Vomiting Pantoprazole Sodium 40 mg 04/25/19 12:00 04/25/19 13:00 Protonix IV 40 mg QDAY DEVI Administration Sodium Chloride 10 ml 04/23/19 22:00 04/25/19 21:14 Sodium Chloride Flush Syringe 10 Ml IV 10 ml BID DEVI Administration Sodium Chloride 10 ml 04/23/19 19:48 Sodium Chloride Flush Syringe 10 Ml IV PRN PRN LINE FLUSH
--- NOTE | 2019-04-26 08:49 | Progress Note ---
Assessment and Plan Assessment and plan: Acute pancreatitis Admitted to ICU keep NPO Lipase level now normal, 59 GI following Alcohol withdrawal syndrome/delirium [facility] protocol added Haldol to Ativan Started on Precedex for sedation Alcohol abuse Thiamine iv fluids Hypophosphatemia replace and recheck Hypomagnesemia replace and recheck Elevated LFT SIRS supportive care Fever SIRS versus rule out sepsis on Empiric iv Antibiotics blood cultures drawn Leukocytosis Due to SIRS Full code status Discussed with mother at bedside The high probability of a clinically significant, sudden or life threatening deterioration of the [3] system(s) required my full and direct attention, intervention and personal management. The aggregate critical care time was [31] minutes. This time is in addition to time spent performing reported procedures but includes the following: [] Data Review and interpretation [] Patient assessment and monitoring of vital signs [] Documentation [] Medication orders and management History Interval history: Abdominal pain Mild agitation Fever Hospitalist Physical - Physical exam Narrative exam: Gen: Not in acute distress, lying in bed , ill looking HEENT: Normocephalic, atraumatic Neck: supple, no JVD Heart: S1 and S2 reg,tachy, no murmurs, rubs or gallop Lungs: Clear to auscultation, no rhonchi, no wheeze Abd: soft, tender mid abdomen, no rebound, non distended, normal BS, Ext: No edema, no clubbing, no cyanosis Neuro: Awake, alert, oriented X 3, no focal neurological signs, mild agitation - Constitutional Vitals: Temp Pulse Resp BP Pulse Ox 99.7 F H 108 H 48 H 139/93 98 04/26/19 04:00 04/26/19 06:10 04/26/19 06:00 04/26/19 06:10 04/26/19 06:00 General appearance: Present: well-nourished Results - Labs CBC & Chem 7: 04/26/19 04:45 04/26/19 04:45 Labs: Laboratory Last Values WBC 20.6 K/mm3 (4.5-11.0) H 04/26/19 04:45 RBC 4.48 M/mm3 (3.65-5.03) 04/26/19 04:45 Hgb 13.6 gm/dl (11.8-15.2) 04/26/19 04:45 Hct 40.9 % (35.5-45.6) 04/26/19 04:45 MCV 91 fl (84-94) 04/26/19 04:45 MCH 30 pg (28-32) 04/26/19 04:45 MCHC 33 % (32-34) 04/26/19 04:45 RDW 13.2 % (13.2-15.2) 04/26/19 04:45 Plt Count 90 K/mm3 (140-440) L 04/26/19 04:45 Lymph % (Auto) 4.4 % (13.4-35.0) L 04/24/19 04:53 Rooks % (Auto) 4.3 % (0.0-7.3) 04/24/19 04:53 Eos % (Auto) 0.9 % (0.0-4.3) 04/24/19 04:53 Baso % (Auto) 0.4 % (0.0-1.8) 04/24/19 04:53 Lymph # 0.7 K/mm3 (1.2-5.4) L 04/24/19 04:53 Rooks # 0.7 K/mm3 (0.0-0.8) 04/24/19 04:53 Eos # 0.1 K/mm3 (0.0-0.4) 04/24/19 04:53 Baso # 0.1 K/mm3 (0.0-0.1) 04/24/19 04:53 Add Manual Diff Complete 04/26/19 04:45 Total Counted 100 04/26/19 04:45 Seg Neutrophils % 90.0 % (40.0-70.0) H 04/24/19 04:53 Seg Neuts % (Manual) 94.0 % (40.0-70.0) H 04/26/19 04:45 Band Neutrophils % 0 % 04/26/19 04:45 Lymphocytes % (Manual) 1.0 % (13.4-35.0) L 04/26/19 04:45 Reactive Lymphs % (Man) 0 % 04/26/19 04:45 Monocytes % (Manual) 5.0 % (0.0-7.3) 04/26/19 04:45 Eosinophils % (Manual) 0 % (0.0-4.3) 04/26/19 04:45 Basophils % (Manual) 0 % (0.0-1.8) 04/26/19 04:45 Metamyelocytes % 0 % 04/26/19 04:45 Myelocytes % 0 % 04/26/19 04:45 Promyelocytes % 0 % 04/26/19 04:45 Blast Cells % 0 % 04/26/19 04:45 Nucleated RBC % Not Reportable 04/26/19 04:45 Seg Neutrophils # 15.0 K/mm3 (1.8-7.7) H 04/24/19 04:53 Seg Neutrophils # Man 19.4 K/mm3 (1.8-7.7) H 04/26/19 04:45 Band Neutrophils # 0.0 K/mm3 04/26/19 04:45 Lymphocytes # (Manual) 0.2 K/mm3 (1.2-5.4) L 04/26/19 04:45 Abs React Lymphs (Man) 0.0 K/mm3 04/26/19 04:45 Monocytes # (Manual) 1.0 K/mm3 (0.0-0.8) H 04/26/19 04:45 Eosinophils # (Manual) 0.0 K/mm3 (0.0-0.4) 04/26/19 04:45 Basophils # (Manual) 0.0 K/mm3 (0.0-0.1) 04/26/19 04:45 Metamyelocytes # 0.0 K/mm3 04/26/19 04:45 Myelocytes # 0.0 K/mm3 04/26/19 04:45 Promyelocytes # 0.0 K/mm3 04/26/19 04:45 Blast Cells # 0.0 K/mm3 04/26/19 04:45 WBC Morphology Not Reportable 04/26/19 04:45 Hypersegmented Neuts Not Reportable 04/26/19 04:45 Hyposegmented Neuts Not Reportable 04/26/19 04:45 Hypogranular Neuts Not Reportable 04/26/19 04:45 Smudge Cells Not Reportable 04/26/19 04:45 Toxic Granulation Not Reportable 04/26/19 04:45 Toxic Vacuolation Not Reportable 04/26/19 04:45 Dohle Bodies Not Reportable 04/26/19 04:45 Pelger-Huet Anomaly Not Reportable 04/26/19 04:45 Julieta Rods Not Reportable 04/26/19 04:45 Platelet Estimate Appears decreased 04/26/19 04:45 Clumped Platelets Not Reportable 04/26/19 04:45 Plt Clumps, EDTA Not Reportable 04/26/19 04:45 Large Platelets 1+ 04/26/19 04:45 Giant Platelets Not Reportable 04/26/19 04:45 Platelet Satelliting Not Reportable 04/26/19 04:45 Plt Morphology Comment Not Reportable 04/26/19 04:45 RBC Morphology Normal 04/26/19 04:45 Dimorphic RBCs Not Reportable 04/26/19 04:45 Polychromasia Not Reportable 04/26/19 04:45 Hypochromasia Not Reportable 04/26/19 04:45 Poikilocytosis Not Reportable 04/26/19 04:45 Anisocytosis Not Reportable 04/26/19 04:45 Microcytosis Not Reportable 04/26/19 04:45 Macrocytosis Not Reportable 04/26/19 04:45 Spherocytes Not Reportable 04/26/19 04:45 Pappenheimer Bodies Not Reportable 04/26/19 04:45 Sickle Cells Not Reportable 04/26/19 04:45 Target Cells Not Reportable 04/26/19 04:45 Tear Drop Cells Not Reportable 04/26/19 04:45 Ovalocytes Not Reportable 04/26/19 04:45 Helmet Cells Not Reportable 04/26/19 04:45 Villasenor-Bergland Bodies Not Reportable 04/26/19 04:45 Vinson Rings Not Reportable 04/26/19 04:45 Teresa Cells Not Reportable 04/26/19 04:45 Bite Cells Not Reportable 04/26/19 04:45 Crenated Cell Not Reportable 04/26/19 04:45 Elliptocytes Not Reportable 04/26/19 04:45 Acanthocytes (Spur) Not Reportable 04/26/19 04:45 Rouleaux Not Reportable 04/26/19 04:45 Hemoglobin C Crystals Not Reportable 04/26/19 04:45 Schistocytes Not Reportable 04/26/19 04:45 Malaria parasites Not Reportable 04/26/19 04:45 Seun Bodies Not Reportable 04/26/19 04:45 Hem Pathologist Commnt No 04/26/19 04:45 PT 14.1 Sec. (12.2-14.9) 04/25/19 07:50 INR 1.10 (0.87-1.13) 04/25/19 07:50 APTT 31.2 Sec. (24.2-36.6) 04/23/19 08:01 POC ABG pH 7.373 (7.35-7.45) 04/26/19 03:21 POC ABG pCO2 27.8 (35-45) L 04/26/19 03:21 POC ABG pO2 80 (80-105) 04/26/19 03:21 POC ABG HCO3 16.2 (22-26 mml/L) 04/26/19 03:21 POC ABG Total CO2 17 (23-27mmol/L) 04/26/19 03:21 POC ABG O2 Sat 96 04/26/19 03:21 POC ABG Base Excess -9 ((-2) - (+3)mmol/L) 04/26/19 03:21 FiO2 28 % 04/26/19 03:21 Sodium 140 mmol/L (137-145) 04/26/19 04:45 Potassium 3.6 mmol/L (3.6-5.0) 04/26/19 04:45 Chloride 104.6 mmol/L (98-107) 04/26/19 04:45 Carbon Dioxide 18 mmol/L (22-30) L 04/26/19 04:45 Anion Gap 21 mmol/L 04/26/19 04:45 BUN 8 mg/dL (9-20) L 04/26/19 04:45 Creatinine 0.7 mg/dL (0.8-1.5) L 04/26/19 04:45 Estimated GFR > 60 ml/min 04/26/19 04:45 BUN/Creatinine Ratio 11 % 04/26/19 04:45 Glucose 87 mg/dL (75-100) 04/26/19 04:45 Hemoglobin A1c 5.3 % (4-6) 04/23/19 20:20 Calcium 9.1 mg/dL (8.4-10.2) 04/26/19 04:45 Phosphorus 2.10 mg/dL (2.5-4.5) L D 04/25/19 07:50 Magnesium 2.60 mg/dL (1.7-2.3) H 04/25/19 07:50 Total Bilirubin 1.10 mg/dL (0.1-1.2) 04/26/19 04:45 Direct Bilirubin 0.5 mg/dL (0-0.2) H 04/25/19 07:50 Indirect Bilirubin 0.7 mg/dL 04/25/19 07:50 AST 106 units/L (5-40) H 04/26/19 04:45 ALT 45 units/L (7-56) 04/26/19 04:45 Alkaline Phosphatase 142 units/L (35-129) H 04/26/19 04:45 C-Reactive Protein 44.60 mg/dL (0.00-1.30) H 04/26/19 04:45 Total Protein 7.0 g/dL (6.3-8.2) 04/26/19 04:45 Albumin 3.1 g/dL (3.9-5) L 04/26/19 04:45 Albumin/Globulin Ratio 0.8 % 04/26/19 04:45 Triglycerides 157 mg/dL (2-149) H 04/25/19 07:50 Lipase 59 units/L (13-60) 04/26/19 04:45 Urine Color [place] (Yellow) 04/23/19 Unknown Urine Turbidity Slightly-cloudy (Clear) 04/23/19 Unknown Urine pH 5.0 (5.0-7.0) 04/23/19 Unknown Ur Specific [place] 1.032 (1.003-1.030) H 04/23/19 Unknown Urine Protein 100 mg/dl mg/dL (Negative) 04/23/19 Unknown Urine Glucose (UA) Neg mg/dL (Negative) 04/23/19 Unknown Urine Ketones 20 mg/dL (Negative) 04/23/19 Unknown Urine Blood Sm (Negative) 04/23/19 Unknown Urine Nitrite Neg (Negative) 04/23/19 Unknown Urine Bilirubin Neg (Negative) 04/23/19 Unknown Urine Ictotest Positive (Negative) 04/23/19 10:36 Urine Urobilinogen < 2.0 mg/dL (<2.0) 04/23/19 Unknown Ur Leukocyte Esterase Neg (Negative) 04/23/19 Unknown Urine WBC (Auto) 4.0 /HPF (0.0-6.0) 04/23/19 Unknown Urine RBC (Auto) 6.0 /HPF (0.0-6.0) 04/23/19 Unknown U Epithel Cells (Auto) < 1.0 /HPF (0-13.0) 04/23/19 10:36 Urine Bacteria (Auto) 1+ /HPF (Negative) 04/23/19 Unknown Urine Mucus 3+ /HPF 04/23/19 Unknown Urine Opiates Screen Presumptive negative 04/23/19 10:36 Urine Methadone Screen Presumptive negative 04/23/19 10:36 Ur Barbiturates Screen Presumptive negative 04/23/19 10:36 Ur Phencyclidine Scrn Presumptive negative 04/23/19 10:36 Ur Amphetamines Screen Presumptive negative 04/23/19 10:36 U Benzodiazepines Scrn Presumptive negative 04/23/19 10:36 Urine Cocaine Screen Presumptive negative 04/23/19 10:36 U Marijuana (THC) Screen Presumptive negative 04/23/19 10:36 Drugs of Abuse Note Disclamer 04/23/19 10:36 Hepatitis A IgM Ab Non-reactive (NonReactive) 04/24/19 07:10 Hep Bs Antigen Non-reactive (Negative) 04/24/19 07:10 Hep B Core IgM Ab Non-reactive (NonReactive) 04/24/19 07:10 Hepatitis C Antibody Non-reactive (NonReactive) 04/24/19 07:10 Active Medications - Current Medications Current Medications: Generic Name Dose Route Start Last Admin Trade Name Freq PRN Reason Stop Dose Admin Acetaminophen 650 mg 04/24/19 17:14 04/25/19 17:37 Tylenol ND 650 mg Q4H PRN Administration Pain, Mild (1-3) Clonidine HCl 0.3 mg 04/26/19 10:00 Catapres-Tts Patch TD QWEEK DEVI Haloperidol Lactate 5 mg 04/24/19 09:23 04/25/19 19:30 Haldol IV 5 mg Q1H PRN Administration Unrespon. to mult. doses BZD's Hydralazine HCl 20 mg 04/26/19 07:12 Apresoline IV Q6H PRN Hypertension Sodium Chloride 1,000 mls @ 200 mls/hr 04/23/19 23:45 04/25/19 21:14 Nacl 0.9% 1000 Ml IV 200 mls/hr DIRECT DEVI Administration Dexmedetomidine HCl 400 mcg/ 104 mls @ 4.55 mls/hr 04/24/19 11:00 04/25/19 20:15 Sodium Chloride IV 1.4 mcg/kg/hr TITRATE DEVI 31.85 mls/hr Administration Protocol 0.2 MCG/KG/HR Thiamine HCl 100 mg/ Sodium 51 mls @ 100 mls/hr 04/24/19 13:00 04/25/19 09:14 Chloride IV 100 mls/hr QDAY DEVI Administration Folic Acid 1 mg/ Sodium 50.2 mls @ 200.8 mls/hr 04/26/19 10:00 Chloride IV QDAY DEVI Lorazepam 4 mg 04/23/19 10:39 04/26/19 02:48 Ativan IV 4 mg Q15MIN PRN Administration CIWA-Ar >25 Lorazepam 4 mg 04/23/19 10:39 04/26/19 01:13 Ativan IV 4 mg Q1HR PRN Administration CIWA-Ar 16-25 Lorazepam 2 mg 04/23/19 10:39 04/26/19 04:30 Ativan IV 2 mg Q1HR PRN Administration CIWA-Ar 8-15 Metoclopramide HCl 10 mg 04/23/19 19:48 Reglan IV Q6H PRN Nausea And Vomiting Metoprolol Tartrate 5 mg 04/24/19 10:00 04/26/19 06:10 Metoprolol IV 5 mg Q6HR DEVI Administration Morphine Sulfate 1 mg 04/24/19 10:42 04/25/19 16:00 Morphine IV 1 mg Q6HR PRN Administration Pain, Moderate (4-6) Morphine Sulfate 2 mg 04/24/19 10:42 Morphine IV Q6H PRN Pain , Severe (7-10) Ondansetron HCl 4 mg 04/23/19 19:48 Zofran IV Q3H PRN Nausea And Vomiting Pantoprazole Sodium 40 mg 04/25/19 12:00 04/25/19 13:00 Protonix IV 40 mg QDAY DEVI Administration Sodium Chloride 10 ml 04/23/19 22:00 04/25/19 21:14 Sodium Chloride Flush Syringe 10 Ml IV 10 ml BID DEVI Administration Sodium Chloride 10 ml 04/23/19 19:48 Sodium Chloride Flush Syringe 10 Ml IV PRN PRN LINE FLUSH
--- NOTE | 2019-04-26 09:43 | Progress Note ---
Assessment and Plan 1. Pancreatitis - due to EtOH, though gallstones could be a factor. Calcium, Cr normal. WBC increased. - conservative management - would recommend Dobhoff placement to initiate early TF if pt fails to improve mental status quickly 2. EtOH withdrawal - on CIWA 3. Gallstones Subjective Date of service: 04/26/19 Principal diagnosis: Pancreatitis Interval history: Pt sedated, lying comfortably in bed. Step-father at bedside. No acute events. Objective - Constitutional Vitals: Vital Signs - 12hr 04/25/19 04/25/19 04/25/19 22:00 22:30 22:31 Temperature Pulse Rate 112 H 107 H 108 H Respiratory 23 15 15 Rate Blood Pressure 168/113 171/116 171/116 O2 Sat by Pulse Oximetry 04/25/19 04/25/19 04/25/19 22:33 23:00 23:30 Temperature Pulse Rate 108 H 108 H Respiratory 16 21 Rate Blood Pressure 166/115 160/118 O2 Sat by Pulse 98 95 Oximetry 04/26/19 04/26/19 04/26/19 00:00 00:30 01:00 Temperature 100.2 F H Pulse Rate 107 H 107 H 107 H Respiratory 33 H 27 H 33 H Rate Blood Pressure 169/119 164/113 166/112 O2 Sat by Pulse 95 94 96 Oximetry 04/26/19 04/26/19 04/26/19 01:11 01:30 02:00 Temperature Pulse Rate 106 H 109 H 109 H Respiratory 35 H 41 H Rate Blood Pressure 166/112 162/117 168/116 O2 Sat by Pulse 97 96 Oximetry 04/26/19 04/26/19 04/26/19 02:30 03:01 03:31 Temperature Pulse Rate 108 H 109 H 110 H Respiratory 35 H 32 H 18 Rate Blood Pressure 183/124 177/123 169/115 O2 Sat by Pulse 93 99 Oximetry 04/26/19 04/26/19 04/26/19 04:00 04:30 05:01 Temperature 99.7 F H Pulse Rate 107 H 108 H 108 H Respiratory 45 H 49 H 23 Rate Blood Pressure 143/103 148/97 153/106 O2 Sat by Pulse 100 97 Oximetry 04/26/19 04/26/19 04/26/19 05:30 06:00 06:10 Temperature Pulse Rate 109 H 109 H 108 H Respiratory 39 H 48 H Rate Blood Pressure 143/98 139/93 139/93 O2 Sat by Pulse 98 98 Oximetry General appearance: Present: no acute distress, other (Sedated) - Respiratory Respiratory effort: normal - Cardiovascular Rhythm: regular Heart Sounds: Present: S1 & S2 - Gastrointestinal General gastrointestinal: Present: soft, tender (Mild), normal bowel sounds - Labs CBC & Chem 7: 04/26/19 04:45 04/26/19 04:45 Labs: Abnormal lab results 04/25/19 04/26/19 04/26/19 Range/Units 07:50 03:21 04:45 WBC 20.6 H (4.5-11.0) K/mm3 Plt Count 90 L (140-440) K/mm3 Seg Neuts % (Manual) 94.0 H (40.0-70.0) % Lymphocytes % (Manual) 1.0 L (13.4-35.0) % Seg Neutrophils # Man 19.4 H (1.8-7.7) K/mm3 Lymphocytes # (Manual) 0.2 L (1.2-5.4) K/mm3 Monocytes # (Manual) 1.0 H (0.0-0.8) K/mm3 POC ABG pCO2 27.8 L (35-45) Carbon Dioxide (22-30) mmol/L BUN (9-20) mg/dL Creatinine (0.8-1.5) mg/dL AST (5-40) units/L Alkaline Phosphatase (35-129) units/L C-Reactive Protein 39.70 H (0.00-1.30) mg/dL Albumin (3.9-5) g/dL 04/26/19 Range/Units 04:45 WBC (4.5-11.0) K/mm3 Plt Count (140-440) K/mm3 Seg Neuts % (Manual) (40.0-70.0) % Lymphocytes % (Manual) (13.4-35.0) % Seg Neutrophils # Man (1.8-7.7) K/mm3 Lymphocytes # (Manual) (1.2-5.4) K/mm3 Monocytes # (Manual) (0.0-0.8) K/mm3 POC ABG pCO2 (35-45) Carbon Dioxide 18 L (22-30) mmol/L BUN 8 L (9-20) mg/dL Creatinine 0.7 L (0.8-1.5) mg/dL AST 106 H (5-40) units/L Alkaline Phosphatase 142 H (35-129) units/L C-Reactive Protein 44.60 H (0.00-1.30) mg/dL Albumin 3.1 L (3.9-5) g/dL Medications & Allergies - Medications Allergies/Adverse Reactions: Allergies No Known Allergies Allergy (Unverified 09/22/15 14:21) Home Medications: Home Medications Medication Instructions Recorded Confirmed Last Taken Type Acetaminophen/Codeine [Tylenol #3] 1 tab PO Q6H PRN #15 tab 09/22/15 04/23/19 Unknown Rx Cyclobenzaprine [Flexeril 10 MG 10 mg PO TID PRN #12 tablet 09/22/15 04/23/19 Unknown Rx TAB] Ibuprofen [Motrin 800 MG tab] 800 mg PO Q8HR PRN #30 tablet 09/22/15 04/23/19 Unknown Rx Amlodipine Besylate [Norvasc] 5 mg PO DAILY 04/23/19 04/23/19 04/21/19 History 5 mg Active Medications: Generic Name Dose Route Start Last Admin Trade Name Freq PRN Reason Stop Dose Admin Acetaminophen 650 mg 04/24/19 17:14 04/25/19 17:37 Tylenol [place] 650 mg Q4H PRN Administration Pain, Mild (1-3) Clonidine HCl 0.3 mg 04/26/19 10:00 Catapres-Tts Patch TD QWEEK DEVI Haloperidol Lactate 5 mg 04/24/19 09:23 04/25/19 19:30 Haldol IV 5 mg Q1H PRN Administration Unrespon. to mult. doses BZD's Hydralazine HCl 20 mg 04/26/19 07:12 Apresoline IV Q6H PRN Hypertension Sodium Chloride 1,000 mls @ 200 mls/hr 04/23/19 23:45 04/25/19 21:14 Nacl 0.9% 1000 Ml IV 200 mls/hr DIRECT DEVI Administration Dexmedetomidine HCl 400 mcg/ 104 mls @ 4.55 mls/hr 04/24/19 11:00 04/25/19 20:15 Sodium Chloride IV 1.4 mcg/kg/hr TITRATE DEVI 31.85 mls/hr Administration Protocol 0.2 MCG/KG/HR Thiamine HCl 100 mg/ Sodium 51 mls @ 100 mls/hr 04/24/19 13:00 04/25/19 09:14 Chloride IV 100 mls/hr QDAY DEVI Administration Folic Acid 1 mg/ Sodium 50.2 mls @ 200.8 mls/hr 04/26/19 10:00 Chloride IV QDAY DEVI Lorazepam 4 mg 04/23/19 10:39 04/26/19 02:48 Ativan IV 4 mg Q15MIN PRN Administration CIWA-Ar >25 Lorazepam 4 mg 04/23/19 10:39 04/26/19 01:13 Ativan IV 4 mg Q1HR PRN Administration CIWA-Ar 16-25 Lorazepam 2 mg 04/23/19 10:39 04/26/19 04:30 Ativan IV 2 mg Q1HR PRN Administration CIWA-Ar 8-15 Metoclopramide HCl 10 mg 04/23/19 19:48 Reglan IV Q6H PRN Nausea And Vomiting Metoprolol Tartrate 5 mg 04/24/19 10:00 04/26/19 06:10 Metoprolol IV 5 mg Q6HR DEVI Administration Morphine Sulfate 1 mg 04/24/19 10:42 04/25/19 16:00 Morphine IV 1 mg Q6HR PRN Administration Pain, Moderate (4-6) Morphine Sulfate 2 mg 04/24/19 10:42 Morphine IV Q6H PRN Pain , Severe (7-10) Ondansetron HCl 4 mg 04/23/19 19:48 Zofran IV Q3H PRN Nausea And Vomiting Pantoprazole Sodium 40 mg 04/25/19 12:00 04/25/19 13:00 Protonix IV 40 mg QDAY DEVI Administration Sodium Chloride 10 ml 04/23/19 22:00 04/25/19 21:14 Sodium Chloride Flush Syringe 10 Ml IV 10 ml BID DEVI Administration Sodium Chloride 10 ml 04/23/19 19:48 Sodium Chloride Flush Syringe 10 Ml IV PRN PRN LINE FLUSH
[2019-04-26] MEDS ORDERED: cloNIDine TTS 0.3 MG/24 HR PATCH TD SCH (10:00)
[2019-04-26] MEDS: PANTOPRAZOLE 40 MG INJ IV SCH (10:30)
[2019-04-26] MEDS ORDERED: SODIUM CHLORIDE 0.9% 250ML 250 ML ONE (10:47)
[2019-04-26] MEDS: FOLIC ACID 1 MG in SODIUM CHLORIDE 0.9% 50 ML IV SCH (10:52)
[2019-04-26] MEDS: THIAMINE 100 MG in SODIUM CHLORIDE 0.9% 50 ML IV SCH (11:26)
[2019-04-26] MEDS: MORPHINE 2 MG/1 ML INJ IV PRN ×2 (15:43→23:40)
--- NOTE | 2019-04-26 19:45 | Progress Note ---
Assessment and Plan Cultures: 04/23/2019 blood culture: No growth A/P: 29-year-old male with hypertension and ongoing alcohol abuse admitted with: 1) SIRS secondary to acute pancreatitis. No evidence of pancreatic necrosis or infected pseudocyst on CT imaging. Etiology of pancreatitis is likely alcohol +/ - gall stones, but no evidence of biliary ductal dilatation, LFTs minimally elevated. Blood cultures with no growth. No abx needed at this time. 2) Alcohol abuse with fatty liver and withdrawal: on [facility] protocol. 3) Cholelithiasis: will need GB surgery in the future. Recs: Continue to montior off antibiotics. continue to monitor fever and WBC supportive care for acute pancreatitis Mirza Meyers MD [facility] M: [phone] O: [phone] F: [phone] Subjective Date of service: 04/26/19 Principal diagnosis: Pancreatitis Interval history: Abdomen slightly improved. Objective - Exam Narrative Exam: Constitutional: Alert, cooperative. No acute distress Head, Ears, Nose: Normocephalic, atraumatic. External ears, nose normal Eyes: Conjunctivae/corneas clear. No icterus. No ptosis. Neck: Supple, no meningeal signs Oral: dentition fair, no thrush Cardiovascular: S1, S2 normal. Respiratory: Good air entry, clear to auscultation bilaterally GI: Soft, + tender; bowel sounds normal. No peritoneal signs. Musculoskeletal: No pedal edema, no cyanosis. Skin: No rash or abscess Hem/Lymphatic: No palpable cervical or supraclavicular nodes. No lymphangitis Psych: Mood ok. Affect normal Neurological: Awake, alert, oriented. No gross abnormality - Constitutional Vitals: Vital Signs Temp Pulse Resp BP Pulse Ox 100.3 F H 110 H 46 H 158/112 100 04/26/19 12:00 04/26/19 18:56 04/26/19 15:43 04/26/19 18:56 04/26/19 12:30 Temperature -Last 24 Hours Temperature 100.3 F Temperature 102.1 F Temperature 99.7 F Temperature 100.2 F Temperature 98.4 F - Labs CBC & Chem 7: 04/26/19 04:45 04/26/19 04:45 Labs: Abnormal lab results 04/26/19 04/26/19 04/26/19 Range/Units 03:21 04:45 04:45 WBC 20.6 H (4.5-11.0) K/mm3 Plt Count 90 L (140-440) K/mm3 Seg Neuts % (Manual) 94.0 H (40.0-70.0) % Lymphocytes % (Manual) 1.0 L (13.4-35.0) % Seg Neutrophils # Man 19.4 H (1.8-7.7) K/mm3 Lymphocytes # (Manual) 0.2 L (1.2-5.4) K/mm3 Monocytes # (Manual) 1.0 H (0.0-0.8) K/mm3 POC ABG pCO2 27.8 L (35-45) Carbon Dioxide 18 L (22-30) mmol/L BUN 8 L (9-20) mg/dL Creatinine 0.7 L (0.8-1.5) mg/dL AST 106 H (5-40) units/L Alkaline Phosphatase 142 H (35-129) units/L C-Reactive Protein 44.60 H (0.00-1.30) mg/dL Albumin 3.1 L (3.9-5) g/dL Lipase (13-60) units/L 04/26/19 Range/Units 11:24 WBC (4.5-11.0) K/mm3 Plt Count (140-440) K/mm3 Seg Neuts % (Manual) (40.0-70.0) % Lymphocytes % (Manual) (13.4-35.0) % Seg Neutrophils # Man (1.8-7.7) K/mm3 Lymphocytes # (Manual) (1.2-5.4) K/mm3 Monocytes # (Manual) (0.0-0.8) K/mm3 POC ABG pCO2 (35-45) Carbon Dioxide (22-30) mmol/L BUN (9-20) mg/dL Creatinine (0.8-1.5) mg/dL AST (5-40) units/L Alkaline Phosphatase (35-129) units/L C-Reactive Protein (0.00-1.30) mg/dL Albumin (3.9-5) g/dL Lipase 63 H (13-60) units/L
[2019-04-26] MEDS: DEXMEDETOMIDINE 400 MCG in SODIUM CHLORIDE 0.9% 100 ML IV SCH (23:19)
[2019-04-26] MEDS: ACETAMINOPHEN 650 MG RECT SUPP PR PRN (23:43)
[2019-04-27] MEDS: METOPROLOL TARTRATE 5 MG/5 ML INJ IV SCH ×2 (05:08→13:24)
[2019-04-27] MEDS: MORPHINE 2 MG/1 ML INJ IV PRN (05:15)
[2019-04-27 05:19] LABS: Hematocrit 38.7 % (35.5-45.6); Hemoglobin 12.8 gm/dl (11.8-15.2); Mean Corpuscular HGB Conc 33 % (32-34); Mean Corpuscular Volume 91 fl (84-94); Red Blood Count 4.27 M/mm3 (3.65-5.03); Red Cell Distribution Width 13.3 % (13.2-15.2)
[2019-04-27 05:31] LABS: BUN/Creatinine Ratio 16; Blood Urea Nitrogen 11 mg/dL (9-20); Calcium 9.2 mg/dL (8.4-10.2); Hemolysis Index 13
[2019-04-27 07:25] LABS: Mean Platelet Volume 10.8 fl (6-12); Platelet Count 111 K/mm3 (140-440)
--- NOTE | 2019-04-27 08:32 | Progress Note ---
Assessment and Plan 29-year-old -[place] male with a past medical history alcohol abuse reports admitted for alcohol withdrawal. He was found to have acute pancreatitis on CT scan. Has associated abdominal pain. Also has severe hypertension. Still confused. He drinks one to two 1/5 of liquor daily for the last 3 years. Reports no fever, chills, sweats no hemoptysis no hematemesis nor hematochezia. - Acute pancreatitis with abdominal pain and distension keep NPO Lipase level now normal, 59 GI following - Alcohol withdrawal syndrome/delirium [facility] protocol added Haldol to Ativan Started on Precedex for sedation - Alcohol abuse Thiamine iv fluids - Hypophosphatemia replace and recheck - Hypomagnesemia replace and recheck - Elevated LFT fromn Fatty liver - SIRS supportive care - Fever SIRS versus rule out sepsis on Empiric iv Antibiotics blood cultures drawn - Leukocytosis Due to SIRS - Full code status Discussed with mother at bedside Subjective Date of service: 04/27/19 Principal diagnosis: alcohol withdrawal, acute Pancreatitis Interval history: Complaint of abdomen pain, still confused wanting to get out of bed because he wants to go. No overnight event reported to me besides these. Discussed with patient's nurse. Objective - Exam Narrative Exam: Constitutional: Well-nourished well-developed. Confused. In no distress Head: Normocephalic atraumatic Eyes: Pupils are equal round and reactive to light Nose: No enlarged turbinates, no septal deviation. Mouth: Moist mucous membranes. Neck: Supple no thyromegaly. No bruit. No JVD Heart: Regular rate and rhythm, S1-S2 normal. No rubs murmurs or gallop Lungs: Clear to auscultation bilaterally. no rales or rhonchi Abdomen: Soft, distended. Nontender. Bowel sound are present. Extremities: No edema, no cyanosis, no clubbing. Neuro: Alert oriented Oriented x3. No focal sensory or motor deficit. Skin: No rashes or hyperpigmented spots Musculoskeletal system: No joint pain or swelling Hematological: No petechia or subcutanous hemorrhages. Immunological: No multiple septic spots on the skin Lymphatic: No generalized lymphadenopathy Psychiatry: Confused from alcohol withdrawal. - Constitutional Vitals: Vital Signs - 12hr 04/26/19 04/26/19 04/26/19 20:25 20:30 21:00 Temperature Pulse Rate 188 H 123 H Respiratory 19 50 H 27 H Rate Blood Pressure 158/102 161/112 O2 Sat by Pulse 98 96 96 Oximetry 04/26/19 04/26/19 04/26/19 21:30 22:00 22:30 Temperature Pulse Rate 120 H 124 H 139 H Respiratory 42 H 19 21 Rate Blood Pressure 162/106 166/106 166/120 O2 Sat by Pulse 97 99 95 Oximetry 04/26/19 04/26/19 04/26/19 22:40 23:00 23:17 Temperature Pulse Rate 118 H 121 H Respiratory 19 39 H Rate Blood Pressure 168/118 168/118 O2 Sat by Pulse 98 Oximetry 04/26/19 04/26/19 04/26/19 23:30 23:35 23:40 Temperature 102.7 F H Pulse Rate Respiratory 27 H Rate Blood Pressure 177/100 O2 Sat by Pulse 98 Oximetry 04/26/19 04/26/19 04/27/19 23:43 23:50 00:00 Temperature Pulse Rate Respiratory 27 H Rate Blood Pressure 177/100 155/100 O2 Sat by Pulse 97 96 Oximetry 04/27/19 04/27/19 04/27/19 00:05 00:10 00:30 Temperature 102.7 F H Pulse Rate 118 H Respiratory 27 H 18 35 H Rate Blood Pressure 155/100 143/93 O2 Sat by Pulse 96 96 Oximetry 04/27/19 04/27/19 04/27/19 00:43 01:00 01:30 Temperature Pulse Rate 109 H 105 H Respiratory 19 27 H 35 H Rate Blood Pressure 143/93 144/101 O2 Sat by Pulse 97 97 Oximetry 04/27/19 04/27/19 04/27/19 02:00 02:30 03:00 Temperature Pulse Rate 103 H 100 H 97 H Respiratory 28 H 32 H 28 H Rate Blood Pressure 149/102 162/109 162/109 O2 Sat by Pulse 98 97 97 Oximetry 04/27/19 04/27/19 04/27/19 03:25 03:30 04:00 Temperature Pulse Rate 99 H 97 H Respiratory 27 H 33 H 34 H Rate Blood Pressure 162/109 162/109 O2 Sat by Pulse 98 98 98 Oximetry 04/27/19 04/27/19 04/27/19 04:18 04:30 05:00 Temperature Pulse Rate 101 H 102 H Respiratory 31 H 34 H 22 Rate Blood Pressure 153/106 139/86 O2 Sat by Pulse 98 99 98 Oximetry 04/27/19 04/27/19 04/27/19 05:08 05:15 05:30 Temperature Pulse Rate 100 H 97 H Respiratory 15 32 H Rate Blood Pressure 139/86 155/106 O2 Sat by Pulse 97 Oximetry 04/27/19 06:00 Temperature Pulse Rate 98 H Respiratory 32 H Rate Blood Pressure 157/104 O2 Sat by Pulse 97 Oximetry - Labs CBC & Chem 7: 04/27/19 04:38 04/27/19 04:38 Labs: Abnormal lab results 04/26/19 04/27/19 04/27/19 Range/Units 11:24 04:38 04:38 WBC 17.5 H (4.5-11.0) K/mm3 Plt Count 111 L (140-440) K/mm3 Carbon Dioxide 19 L (22-30) mmol/L Creatinine 0.7 L (0.8-1.5) mg/dL Lipase 63 H (13-60) units/L
[2019-04-27] MEDS: FOLIC ACID 1 MG in SODIUM CHLORIDE 0.9% 50 ML IV SCH (09:13)
[2019-04-27] MEDS: THIAMINE 100 MG in SODIUM CHLORIDE 0.9% 50 ML IV SCH (11:23)
--- NOTE | 2019-04-27 12:11 | Progress Note ---
Assessment and Plan 29 y/o male with acute pancreatitis and ETOH withdrawal 1. Stop Precedex 2. Needs more long acting meds now that tolerating PO. IMS I believe has seen but I will add other BP meds as well. 3. Will start Cleart Liquid diet today. 4. Stable for discharge to the floor. Will send to tele Updated family Subjective Date of service: 04/27/19 Principal diagnosis: alcohol withdrawal, acute Pancreatitis Interval history: Awake and alert. Precedex is now off. patient is still hypertenisve and tachy cardic but this is improving. Family at bedside. Objective - Constitutional Vitals: Vital Signs - 12hr 04/27/19 04/27/19 04/27/19 00:10 00:30 00:43 Temperature Pulse Rate 118 H Respiratory 18 35 H 19 Rate Blood Pressure 143/93 O2 Sat by Pulse 96 Oximetry 04/27/19 04/27/19 04/27/19 01:00 01:30 02:00 Temperature Pulse Rate 109 H 105 H 103 H Respiratory 27 H 35 H 28 H Rate Blood Pressure 143/93 144/101 149/102 O2 Sat by Pulse 97 97 98 Oximetry 04/27/19 04/27/19 04/27/19 02:30 03:00 03:25 Temperature Pulse Rate 100 H 97 H Respiratory 32 H 28 H 27 H Rate Blood Pressure 162/109 162/109 O2 Sat by Pulse 97 97 98 Oximetry 04/27/19 04/27/19 04/27/19 03:30 04:00 04:18 Temperature Pulse Rate 99 H 97 H Respiratory 33 H 34 H 31 H Rate Blood Pressure 162/109 162/109 O2 Sat by Pulse 98 98 98 Oximetry 04/27/19 04/27/19 04/27/19 04:30 05:00 05:08 Temperature Pulse Rate 101 H 102 H 100 H Respiratory 34 H 22 Rate Blood Pressure 153/106 139/86 139/86 O2 Sat by Pulse 99 98 Oximetry 04/27/19 04/27/19 04/27/19 05:15 05:30 06:00 Temperature Pulse Rate 97 H 98 H Respiratory 15 32 H 32 H Rate Blood Pressure 155/106 157/104 O2 Sat by Pulse 97 97 Oximetry 04/27/19 04/27/19 04/27/19 06:30 07:00 07:30 Temperature Pulse Rate 101 H 100 H 100 H Respiratory 26 H 34 H 34 H Rate Blood Pressure 154/99 159/104 159/108 O2 Sat by Pulse 97 98 97 Oximetry 04/27/19 04/27/19 04/27/19 08:00 08:30 09:26 Temperature 98.6 F Pulse Rate 102 H 100 H 102 H Respiratory 27 H 37 H Rate Blood Pressure 158/104 170/111 162/106 O2 Sat by Pulse 97 98 Oximetry - Labs CBC & Chem 7: 04/27/19 04:38 04/27/19 04:38 Labs: Abnormal lab results 04/26/19 04/27/19 04/27/19 Range/Units 11:24 04:38 04:38 WBC 17.5 H (4.5-11.0) K/mm3 Plt Count 111 L (140-440) K/mm3 Carbon Dioxide 19 L (22-30) mmol/L Creatinine 0.7 L (0.8-1.5) mg/dL Lipase 63 H (13-60) units/L Medications & Allergies - Medications Allergies/Adverse Reactions: Allergies No Known Allergies Allergy (Unverified 09/22/15 14:21) Home Medications: Home Medications Medication Instructions Recorded Confirmed Last Taken Type Acetaminophen/Codeine [Tylenol #3] 1 tab PO Q6H PRN #15 tab 09/22/15 04/23/19 Unknown Rx Cyclobenzaprine [Flexeril 10 MG 10 mg PO TID PRN #12 tablet 09/22/15 04/23/19 Unknown Rx TAB] Ibuprofen [Motrin 800 MG tab] 800 mg PO Q8HR PRN #30 tablet 09/22/15 04/23/19 Unknown Rx Amlodipine Besylate [Norvasc] 5 mg PO DAILY 04/23/19 04/23/19 04/21/19 History 5 mg Active Medications: Generic Name Dose Route Start Last Admin Trade Name Freq PRN Reason Stop Dose Admin Acetaminophen 650 mg 04/24/19 17:14 04/26/19 23:43 Tylenol [place] 650 mg Q4H PRN Administration Pain, Mild (1-3) Clonidine HCl 0.3 mg 04/26/19 10:00 04/26/19 10:30 Catapres-Tts Patch TD 0.3 mg QWEEK DEVI Administration Haloperidol Lactate 5 mg 04/24/19 09:23 04/25/19 19:30 Haldol IV 5 mg Q1H PRN Administration Unrespon. to mult. doses BZD's Hydralazine HCl 20 mg 04/26/19 07:12 04/27/19 09:26 Apresoline IV 20 mg Q6H PRN Administration Hypertension Sodium Chloride 1,000 mls @ 200 mls/hr 04/23/19 23:45 04/25/19 21:14 Nacl 0.9% 1000 Ml IV 200 mls/hr DIRECT DEVI Administration Dexmedetomidine HCl 400 mcg/ 104 mls @ 4.55 mls/hr 04/24/19 11:00 04/26/19 23:49 Sodium Chloride IV 0.22 mcg/kg/hr TITRATE DEVI 5.005 mls/hr Titration Protocol 0.2 MCG/KG/HR Thiamine HCl 100 mg/ Sodium 51 mls @ 100 mls/hr 04/24/19 13:00 04/27/19 11:23 Chloride IV 100 mls/hr QDAY DEVI Administration Folic Acid 1 mg/ Sodium 50.2 mls @ 200.8 mls/hr 04/26/19 10:00 04/27/19 09:13 Chloride IV 200.8 mls/hr QDAY DEVI Administration Lorazepam 4 mg 04/23/19 10:39 04/26/19 19:09 Ativan IV 4 mg Q15MIN PRN Administration CIWA-Ar >25 Lorazepam 4 mg 04/23/19 10:39 04/26/19 01:13 Ativan IV 4 mg Q1HR PRN Administration CIWA-Ar 16-25 Lorazepam 2 mg 04/23/19 10:39 04/26/19 22:01 Ativan IV 2 mg Q1HR PRN Administration CIWA-Ar 8-15 Metoclopramide HCl 10 mg 04/23/19 19:48 Reglan IV Q6H PRN Nausea And Vomiting Metoprolol Tartrate 5 mg 04/24/19 10:00 04/27/19 05:08 Metoprolol IV 5 mg Q6HR DEVI Administration Morphine Sulfate 1 mg 04/24/19 10:42 04/25/19 16:00 Morphine IV 1 mg Q6HR PRN Administration Pain, Moderate (4-6) Morphine Sulfate 2 mg 04/24/19 10:42 04/27/19 05:15 Morphine IV 2 mg Q6H PRN Administration Pain , Severe (7-10) Ondansetron HCl 4 mg 04/23/19 19:48 Zofran IV Q3H PRN Nausea And Vomiting Pantoprazole Sodium 40 mg 04/25/19 12:00 04/26/19 10:30 Protonix IV 40 mg QDAY DEVI Administration Sodium Chloride 10 ml 04/23/19 22:00 04/26/19 21:00 Sodium Chloride Flush Syringe 10 Ml IV 10 ml BID DEVI Administration Sodium Chloride 10 ml 04/23/19 19:48 Sodium Chloride Flush Syringe 10 Ml IV PRN PRN LINE FLUSH
[2019-04-27] MEDS: PANTOPRAZOLE 40 MG INJ IV SCH (12:19)
[2019-04-27] MEDS: hydroCHLOROthiazide 25 MG TAB PO SCH (12:33)
[2019-04-27] MEDS: LABETALOL 100 MG TAB PO SCH ×2 (14:15→22:01)
--- NOTE | 2019-04-27 15:44 | Progress Note ---
Assessment and Plan 1. Pancreatitis - due to EtOH, though gallstones could be a factor. Clinically resolved. Pt states he will no longer drink, and was taking more than a fifth/d. - adv diet 2. EtOH withdrawal - resolved. 3. Gallstones - may be cause of pancreatitis, though EtOH more likely. - will reassess as outpatient. Subjective Date of service: 04/27/19 Principal diagnosis: alcohol withdrawal, acute Pancreatitis Interval history: Pt awake, alert. No abd pain, N/V. Objective - Constitutional Vitals: Vital Signs - 12hr 04/27/19 04/27/19 04/27/19 04:00 04:18 04:30 Temperature Pulse Rate 97 H 101 H Respiratory 34 H 31 H 34 H Rate Blood Pressure 162/109 153/106 O2 Sat by Pulse 98 98 99 Oximetry 04/27/19 04/27/19 04/27/19 05:00 05:08 05:15 Temperature Pulse Rate 102 H 100 H Respiratory 22 15 Rate Blood Pressure 139/86 139/86 O2 Sat by Pulse 98 Oximetry 04/27/19 04/27/19 04/27/19 05:30 06:00 06:30 Temperature Pulse Rate 97 H 98 H 101 H Respiratory 32 H 32 H 26 H Rate Blood Pressure 155/106 157/104 154/99 O2 Sat by Pulse 97 97 97 Oximetry 04/27/19 04/27/19 04/27/19 07:00 07:30 08:00 Temperature 98.6 F Pulse Rate 100 H 100 H 102 H Respiratory 34 H 34 H 27 H Rate Blood Pressure 159/104 159/108 158/104 O2 Sat by Pulse 98 97 97 Oximetry 04/27/19 04/27/19 04/27/19 08:30 09:26 14:15 Temperature Pulse Rate 100 H 102 H 120 H Respiratory 37 H Rate Blood Pressure 170/111 162/106 163/90 O2 Sat by Pulse 98 Oximetry General appearance: Present: no acute distress - EENT Eyes: PERRL, EOM intact ENT: hearing intact - Respiratory Respiratory effort: normal - Gastrointestinal General gastrointestinal: Present: soft, non-tender - Labs CBC & Chem 7: 04/27/19 04:38 04/27/19 04:38 Labs: Abnormal lab results 04/27/19 04/27/19 Range/Units 04:38 04:38 WBC 17.5 H (4.5-11.0) K/mm3 Plt Count 111 L (140-440) K/mm3 Carbon Dioxide 19 L (22-30) mmol/L Creatinine 0.7 L (0.8-1.5) mg/dL Medications & Allergies - Medications Allergies/Adverse Reactions: Allergies No Known Allergies Allergy (Unverified 09/22/15 14:21) Home Medications: Home Medications Medication Instructions Recorded Confirmed Last Taken Type Acetaminophen/Codeine [Tylenol #3] 1 tab PO Q6H PRN #15 tab 09/22/15 04/23/19 Unknown Rx Cyclobenzaprine [Flexeril 10 MG 10 mg PO TID PRN #12 tablet 09/22/15 04/23/19 Unknown Rx TAB] Ibuprofen [Motrin 800 MG tab] 800 mg PO Q8HR PRN #30 tablet 09/22/15 04/23/19 Unknown Rx Amlodipine Besylate [Norvasc] 5 mg PO DAILY 04/23/19 04/23/19 04/21/19 History 5 mg Active Medications: Generic Name Dose Route Start Last Admin Trade Name Freq PRN Reason Stop Dose Admin Acetaminophen 650 mg 04/24/19 17:14 04/26/19 23:43 Tylenol [place] 650 mg Q4H PRN Administration Pain, Mild (1-3) Clonidine HCl 0.3 mg 04/26/19 10:00 04/26/19 10:30 Catapres-Tts Patch TD 0.3 mg QWEEK DEVI Administration Haloperidol Lactate 5 mg 04/24/19 09:23 04/25/19 19:30 Haldol IV 5 mg Q1H PRN Administration Unrespon. to mult. doses BZD's Hydralazine HCl 20 mg 04/26/19 07:12 04/27/19 09:26 Apresoline IV 20 mg Q6H PRN Administration Hypertension Hydrochlorothiazide 25 mg 04/27/19 13:00 04/27/19 12:33 Hctz PO 25 mg QDAY DEVI Administration Sodium Chloride 1,000 mls @ 200 mls/hr 04/23/19 23:45 04/25/19 21:14 Nacl 0.9% 1000 Ml IV 200 mls/hr DIRECT DEVI Administration Dexmedetomidine HCl 400 mcg/ 104 mls @ 4.55 mls/hr 04/24/19 11:00 04/26/19 23:49 Sodium Chloride IV 0.22 mcg/kg/hr TITRATE DEVI 5.005 mls/hr Titration Protocol 0.2 MCG/KG/HR Thiamine HCl 100 mg/ Sodium 51 mls @ 100 mls/hr 04/24/19 13:00 04/27/19 11:23 Chloride IV 100 mls/hr QDAY DEVI Administration Folic Acid 1 mg/ Sodium 50.2 mls @ 200.8 mls/hr 04/26/19 10:00 04/27/19 09:13 Chloride IV 200.8 mls/hr QDAY DEVI Administration Labetalol HCl 100 mg 04/27/19 13:00 04/27/19 14:15 Labetalol PO 100 mg BID DEVI Administration Lorazepam 4 mg 04/23/19 10:39 04/26/19 19:09 Ativan IV 4 mg Q15MIN PRN Administration CIWA-Ar >25 Lorazepam 4 mg 04/23/19 10:39 04/26/19 01:13 Ativan IV 4 mg Q1HR PRN Administration CIWA-Ar 16-25 Lorazepam 2 mg 04/23/19 10:39 04/26/19 22:01 Ativan IV 2 mg Q1HR PRN Administration CIWA-Ar 8-15 Metoclopramide HCl 10 mg 04/23/19 19:48 Reglan IV Q6H PRN Nausea And Vomiting Morphine Sulfate 1 mg 04/24/19 10:42 04/25/19 16:00 Morphine IV 1 mg Q6HR PRN Administration Pain, Moderate (4-6) Morphine Sulfate 2 mg 04/24/19 10:42 04/27/19 05:15 Morphine IV 2 mg Q6H PRN Administration Pain , Severe (7-10) Ondansetron HCl 4 mg 04/23/19 19:48 Zofran IV Q3H PRN Nausea And Vomiting Pantoprazole Sodium 40 mg 04/25/19 12:00 04/27/19 12:19 Protonix IV 40 mg QDAY DEVI Administration Sodium Chloride 10 ml 04/23/19 22:00 04/26/19 21:00 Sodium Chloride Flush Syringe 10 Ml IV 10 ml BID DEVI Administration Sodium Chloride 10 ml 04/23/19 19:48 Sodium Chloride Flush Syringe 10 Ml IV PRN PRN LINE FLUSH
[2019-04-27] MEDS: ACETAMINOPHEN 650 MG RECT SUPP PR PRN (22:04)
[2019-04-27] MEDS ORDERED: ACETAMINOPHEN 325 MG TAB PO PRN (22:19)
[2019-04-28 05:28] LABS: Hemoglobin 11.8 gm/dl (11.8-15.2); Mean Corpuscular HGB Conc 34 % (32-34); Mean Corpuscular Volume 90 fl (84-94); Red Blood Count 3.89 M/mm3 (3.65-5.03); Red Cell Distribution Width 13.7 % (13.2-15.2)
[2019-04-28 05:55] LABS: Alanine Aminotransferase 134 units/L (7-56); BUN/Creatinine Ratio 17; Blood Urea Nitrogen 10 mg/dL (9-20); Calcium 9.2 mg/dL (8.4-10.2); Hemolysis Index 35
[2019-04-28] MEDS ORDERED: POTASSIUM CHLORIDE 10 MEQ 10 MEQ/100 ML BAG IV ONE (06:06)
[2019-04-28] MEDS ORDERED: POTASSIUM CHLORIDE ER 20 MEQ TAB PO ONE (06:06)
--- NOTE | 2019-04-28 06:09 | Event Note ---
Date: 04/28/19 Potassium this morning 2.9 (trending down from 3.9 yesterday). Potassium replacement ordered. Follow up on repeat potassium labs
[2019-04-28 06:44] LABS: Basophils % (Manual) 0 % (0.0-1.8); Eosinophils % (Manual) 0 % (0.0-4.3); Platelet Estimate Consistent w Auto; RBC Morphology Normal; Total Cells Counted 100
[2019-04-28 06:47] LABS: Mean Platelet Volume 11.5 fl (6-12); Platelet Count 130 K/mm3 (140-440)
[2019-04-28] MEDS: PANTOPRAZOLE 40 MG INJ IV SCH (09:39)
[2019-04-28] MEDS: hydroCHLOROthiazide 25 MG TAB PO SCH (09:39)
[2019-04-28] MEDS: LABETALOL 100 MG TAB PO SCH ×2 (09:41→21:58)
[2019-04-28] MEDS: FOLIC ACID 1 MG in SODIUM CHLORIDE 0.9% 50 ML IV SCH (10:23)
[2019-04-28] MEDS: THIAMINE 100 MG in SODIUM CHLORIDE 0.9% 50 ML IV SCH (10:23)
--- NOTE | 2019-04-28 10:47 | Progress Note ---
Assessment and Plan 29-year-old -[place] male with a past medical history alcohol abuse reports admitted for alcohol withdrawal. He was found to have acute pancreatitis on CT scan. Has associated abdominal pain. Also has severe hypertension. Still confused. He drinks one to two 1/5 of liquor daily for the last 3 years. Reports no fever, chills, sweats no hemoptysis no hematemesis nor hematochezia. - Acute pancreatitis with abdominal pain and distension keep NPO Lipase level now normal, 59 GI following - Alcohol withdrawal syndrome/delirium [facility] protocol added Haldol to Ativan Started on Precedex for sedation - Alcohol abuse Thiamine iv fluids - Hypophosphatemia replace and recheck - Hypomagnesemia - corrected recheck - Hypokalemia replete and recheck - Elevated LFT from Fatty liver - SIRS supportive care - Fever SIRS versus rule out sepsis on Empiric iv Antibiotics blood cultures drawn - Leukocytosis Due to SIRS - Full code status Discussed with mother at bedside Subjective Date of service: 04/28/19 Principal diagnosis: alcohol withdrawal, acute Pancreatitis Interval history: Complaint of abdomen pain, still confused wanting to get out of bed because he wants to go. No overnight event reported to me besides these. Discussed with patient's nurse. Afebrile Objective - Exam Narrative Exam: Constitutional: Well-nourished well-developed. Confused. In no distress Head: Normocephalic atraumatic Eyes: Pupils are equal round and reactive to light Nose: No enlarged turbinates, no septal deviation. Mouth: Moist mucous membranes. Neck: Supple no thyromegaly. No bruit. No JVD Heart: Regular rate and rhythm, S1-S2 normal. No rubs murmurs or gallop Lungs: Clear to auscultation bilaterally. no rales or rhonchi Abdomen: Soft, distended. Nontender. Bowel sound are present. Extremities: No edema, no cyanosis, no clubbing. Neuro: Alert oriented Oriented x3. No focal sensory or motor deficit. Skin: No rashes or hyperpigmented spots Musculoskeletal system: No joint pain or swelling Hematological: No petechia or subcutanous hemorrhages. Immunological: No multiple septic spots on the skin Lymphatic: No generalized lymphadenopathy Psychiatry: Confused from alcohol withdrawal. - Constitutional Vitals: Vital Signs - 12hr 04/27/19 04/28/1919 22:52 04:10 08:21 Temperature 99.2 F Pulse Rate 100 H Respiratory 18 18 Rate Blood Pressure 138/75 O2 Sat by Pulse 96 96 Oximetry 04/28/19 09:41 Temperature Pulse Rate 100 H Respiratory Rate Blood Pressure 138/75 O2 Sat by Pulse Oximetry - Labs CBC & Chem 7: 04/28/19 04:20 04/28/19 04:20 Labs: Abnormal lab results 04/28/19 04/28/19 Range/Units 04:20 04:20 WBC 16.4 H (4.5-11.0) K/mm3 Hct 35.0 L (35.5-45.6) % Plt Count 130 L (140-440) K/mm3 Seg Neuts % (Manual) 84.0 H (40.0-70.0) % Lymphocytes % (Manual) 7.0 L (13.4-35.0) % Nucleated RBC % 1.0 H (0.0-0.9) % Seg Neutrophils # Man 13.8 H (1.8-7.7) K/mm3 Lymphocytes # (Manual) 1.1 L (1.2-5.4) K/mm3 Sodium 136 L (137-145) mmol/L Potassium 2.9 L* D (3.6-5.0) mmol/L Chloride 95.9 L (98-107) mmol/L Creatinine 0.6 L (0.8-1.5) mg/dL Magnesium 2.40 H (1.7-2.3) mg/dL AST 372 H (5-40) units/L ALT 134 H (7-56) units/L Alkaline Phosphatase 163 H (35-129) units/L Albumin 3.0 L (3.9-5) g/dL
--- NOTE | 2019-04-28 10:57 | Gastroenterology Progress Note ---
<MAT FLETCHER - Last Filed: 04/28/19 10:58> Assessment and Plan 1.acute pancreatitis 2.ETOH abuse -temp 99.2 -WBC 16.4-trending down -H/H WNL-no active signs of bleeding -triglycerides- 157 -INR WNL -LFTs with trend up today (T.chantel 1.00, AST 372, ALT 134, alk phos 163) -lipase 63-trending down (864 on admission) -abd CT showed acute pancreatitis, severe fatty infiltration of liver, and gallstones (no biliary ductal dilation) -abd U/S showed hepatic steatosis and gallstones -etiology-most likely 2/2 ETOH +/- gallstones -clinically, patient reports feeling better with abd pain improved. No N/V. Tolerating clears. -will order MRCP today for further evaluation given trend up in LFTs (r/o choledocholithiasis) -advance diet as tolerated -consider surgery consult for cholecystectomy -continue to trend labs (CRP in am) and supportive care (IVF, pain control, etc.) -alcohol cessation discussed with pt/family-[facility] protocol -will follow Subjective Date of service: 04/28/19 Principal diagnosis: alcohol withdrawal, acute Pancreatitis Objective - Constitutional Vitals: Temp Pulse Resp BP Pulse Ox 99.2 F 100 H 18 138/75 96 04/28/19 04:10 04/28/19 10:47 04/28/19 10:47 04/28/19 09:41 04/28/19 10:47 - Labs CBC & Chem 7: 04/28/19 04:20 04/28/19 04:20 Labs: Laboratory Results - last 24 hr 04/28/19 04/28/19 04:20 04:20 WBC 16.4 H RBC 3.89 Hgb 11.8 Hct 35.0 L MCV 90 MCH 30 MCHC 34 RDW 13.7 Plt Count 130 L Add Manual Diff Complete Total Counted 100 Seg Neuts % (Manual) 84.0 H Band Neutrophils % 0 Lymphocytes % (Manual) 7.0 L Reactive Lymphs % (Man) 0 Monocytes % (Manual) 5.0 Eosinophils % (Manual) 0 Basophils % (Manual) 0 Metamyelocytes % 4.0 Myelocytes % 0 Promyelocytes % 0 Blast Cells % 0 Nucleated RBC % 1.0 H Seg Neutrophils # Man 13.8 H Band Neutrophils # 0.0 Lymphocytes # (Manual) 1.1 L Abs React Lymphs (Man) 0.0 Monocytes # (Manual) 0.8 Eosinophils # (Manual) 0.0 Basophils # (Manual) 0.0 Metamyelocytes # 0.7 Myelocytes # 0.0 Promyelocytes # 0.0 Blast Cells # 0.0 WBC Morphology Not Reportable Hypersegmented Neuts Not Reportable Hyposegmented Neuts Not Reportable Hypogranular Neuts Not Reportable Smudge Cells Not Reportable Toxic Granulation Not Reportable Toxic Vacuolation Not Reportable Dohle Bodies Not Reportable Pelger-Huet Anomaly Not Reportable Julieta Rods Not Reportable Platelet Estimate Consistent w auto Clumped Platelets Not Reportable Plt Clumps, EDTA Not Reportable Large Platelets Not Reportable Giant Platelets Not Reportable Platelet Satelliting Not Reportable Plt Morphology Comment Not Reportable RBC Morphology Normal Dimorphic RBCs Not Reportable Polychromasia Not Reportable Hypochromasia Not Reportable Poikilocytosis Not Reportable Anisocytosis Not Reportable Microcytosis Not Reportable Macrocytosis Not Reportable Spherocytes Not Reportable Pappenheimer Bodies Not Reportable Sickle Cells Not Reportable Target Cells Not Reportable Tear Drop Cells Not Reportable Ovalocytes Not Reportable Helmet Cells Not Reportable Villasenor-[place] Bodies Not Reportable [place] Rings Not Reportable Teresa Cells Not Reportable Bite Cells Not Reportable Crenated Cell Not Reportable Elliptocytes Not Reportable Acanthocytes (Spur) Not Reportable Rouleaux Not Reportable Hemoglobin C Crystals Not Reportable Schistocytes Not Reportable Malaria parasites Not Reportable Seun Bodies Not Reportable Hem Pathologist Commnt No Sodium 136 L Potassium 2.9 L* D Chloride 95.9 L Carbon Dioxide 22 Anion Gap 21 BUN 10 Creatinine 0.6 L Estimated GFR > 60 BUN/Creatinine Ratio 17 Glucose 99 Calcium 9.2 Phosphorus 4.20 Magnesium 2.40 H Total Bilirubin 1.00 AST 372 H ALT 134 H Alkaline Phosphatase 163 H Total Protein 6.8 Albumin 3.0 L Albumin/Globulin Ratio 0.8 <KYRA ROSA R - Last Filed: 04/29/19 14:06> Assessment and Plan Pt seen and examined. Mother in room. Plan as noted. Objective - Constitutional Vitals: Temp Pulse Resp BP Pulse Ox 98.9 F 101 H 19 112/78 97 04/29/19 11:26 04/29/19 11:26 04/29/19 11:26 04/29/19 11:26 04/29/19 11:26 - Labs CBC & Chem 7: 04/29/19 08:32 04/29/19 08:32 Labs: Laboratory Results - last 24 hr 04/29/19 04/29/19 04/29/19 08:32 08:32 08:32 WBC 21.2 H RBC 4.51 Hgb 13.6 Hct 40.3 MCV 89 MCH 30 MCHC 34 RDW 13.4 Plt Count 180 Add Manual Diff Complete Total Counted 100 Seg Neuts % (Manual) 88.0 H Band Neutrophils % 3.0 Lymphocytes % (Manual) 2.0 L Reactive Lymphs % (Man) 0 Monocytes % (Manual) 5.0 Eosinophils % (Manual) 0 Basophils % (Manual) 1.0 Metamyelocytes % 1.0 Myelocytes % 0 Promyelocytes % 0 Blast Cells % 0 Nucleated RBC % Not Reportable Seg Neutrophils # Man 18.7 H Band Neutrophils # 0.6 Lymphocytes # (Manual) 0.4 L Abs React Lymphs (Man) 0.0 Monocytes # (Manual) 1.1 H Eosinophils # (Manual) 0.0 Basophils # (Manual) 0.2 H Metamyelocytes # 0.2 Myelocytes # 0.0 Promyelocytes # 0.0 Blast Cells # 0.0 WBC Morphology Not Reportable Hypersegmented Neuts Not Reportable Hyposegmented Neuts Not Reportable Hypogranular Neuts Not Reportable Smudge Cells Not Reportable Toxic Granulation Not Reportable Toxic Vacuolation Not Reportable Dohle Bodies Not Reportable Pelger-Huet Anomaly Not Reportable Julieta Rods Not Reportable Platelet Estimate Consistent w auto Clumped Platelets Not Reportable Plt Clumps, EDTA Not Reportable Large Platelets 1+ Giant Platelets Not Reportable Platelet Satelliting Not Reportable Plt Morphology Comment Not Reportable RBC Morphology Not Reportable Dimorphic RBCs Not Reportable Polychromasia Not Reportable Hypochromasia Not Reportable Poikilocytosis Not Reportable Anisocytosis 1+ Microcytosis Not Reportable Macrocytosis Not Reportable Spherocytes Not Reportable Pappenheimer Bodies Not Reportable Sickle Cells Not Reportable Target Cells Not Reportable Tear Drop Cells Not Reportable Ovalocytes Not Reportable Helmet Cells Not Reportable Villasenor-[place] Bodies Not Reportable [place] Rings Not Reportable Teresa Cells Not Reportable Bite Cells Not Reportable Crenated Cell Not Reportable Elliptocytes Not Reportable Acanthocytes (Spur) Not Reportable Rouleaux Not Reportable Hemoglobin C Crystals Not Reportable Schistocytes Not Reportable Malaria parasites Not Reportable Seun Bodies Not Reportable Hem Pathologist Commnt No Sodium 134 L Potassium 3.4 L 3.4 L Chloride 95.0 L Carbon Dioxide 22 Anion Gap 20 BUN 9 Creatinine 0.6 L Estimated GFR > 60 BUN/Creatinine Ratio 15 Glucose 107 H Calcium 9.6 Total Bilirubin 0.80 AST 192 H ALT 124 H Alkaline Phosphatase 175 H C-Reactive Protein 20.30 H Total Protein 7.9 Albumin 3.3 L Albumin/Globulin Ratio 0.7
[2019-04-28] MEDS ORDERED: NACL 0.9%/KCL 40 MEQ 40 MEQ/1,000 ML BAG IV SCH (11:00)
--- NOTE | 2019-04-28 14:11 | Magnetic Resonance Report ---
MRI abdomen without contrast--MRCP INDICATION: elevated LFTs, gallstones. COMPARISON: CT abdomen/pelvis from 04/23/2019 FINDINGS: There are small bilateral pleural effusions and mild left basilar consolidation likely at least in part representing compressive atelectasis. No acute osseous abnormality identified. ABDOMEN: There is severe hepatic steatosis. The liver otherwise appears unremarkable. There is minima l cholelithiasis with no intrahepatic or extrahepatic biliary ductal dilatation. The pancreas appears edematous consistent with pancreatitis, with surrounding stranding and small volume ascites. No orga nized fluid collection identified. Likewise there is no pancreatic ductal dilatation or obvious pancr eatic head mass or stone disease. The adrenal glands, kidneys, and visualized GI tract appear unremarkable except for mild inflammatory change involving the second and third segments of the duodenum associated with the aforementioned pa ncreatitis. IMPRESSION: 1. Findings of acute pancreatitis again noted as described above. No organized collection identified. 2. Severe hepatic steatosis. 3. Minimal cholelithiasis. 4. Small bilateral pleural effusions and left basilar consolidation likely at least in part represent ing compressive atelectasis. Signer Name: Deuce Chatterjee MD Signed: 04/28/2019 2:06 PM Workstation Name: [id number]
--- NOTE | 2019-04-28 14:19 | Progress Note ---
Assessment and Plan Cultures: 04/23/2019 blood culture: No growth A/P: 29-year-old male with hypertension and ongoing alcohol abuse admitted with: 1) SIRS secondary to acute pancreatitis. No evidence of pancreatic necrosis or infected pseudocyst on CT imaging. Etiology of pancreatitis is likely alcohol +/ - gall stones, but no evidence of biliary ductal dilatation, LFTs minimally elevated. Blood cultures with no growth. No abx needed at this time. 2) Alcohol abuse with fatty liver and withdrawal: on [facility] protocol. 3) Cholelithiasis: will need GB surgery in the future. Recs: Continue to montior off antibiotics. continue to monitor fever and WBC supportive care for acute pancreatitis Mirza Meyers MD [facility] M: [phone] O: [phone] F: [phone] Subjective Date of service: 04/28/19 Principal diagnosis: alcohol withdrawal, acute Pancreatitis Interval history: Abdomen slightly improved. Objective - Exam Narrative Exam: Constitutional: Alert, cooperative. No acute distress Head, Ears, Nose: Normocephalic, atraumatic. External ears, nose normal Eyes: Conjunctivae/corneas clear. No icterus. No ptosis. Neck: Supple, no meningeal signs Oral: dentition fair, no thrush Cardiovascular: S1, S2 normal. Respiratory: Good air entry, clear to auscultation bilaterally GI: Soft, + tender; bowel sounds normal. No peritoneal signs. Musculoskeletal: No pedal edema, no cyanosis. Skin: No rash or abscess Hem/Lymphatic: No palpable cervical or supraclavicular nodes. No lymphangitis Psych: Mood ok. Affect normal Neurological: Awake, alert, oriented. No gross abnormality - Constitutional Vitals: Vital Signs Temp Pulse Resp BP Pulse Ox 99.2 F 100 H 18 138/75 96 04/28/19 04:10 04/28/19 10:47 04/28/19 10:47 04/28/19 09:41 04/28/19 10:47 Temperature -Last 24 Hours Temperature 99.2 F Temperature 101.1 F Temperature 99.5 F - Labs CBC & Chem 7: 04/28/19 04:20 04/28/19 10:53 Labs: Abnormal lab results 10/28/19 10/28/19 10/28/19 Range/Units 04:20 04:20 10:53 WBC 16.4 H (4.5-11.0) K/mm3 Hct 35.0 L (35.5-45.6) % Plt Count 130 L (140-440) K/mm3 Seg Neuts % (Manual) 84.0 H (40.0-70.0) % Lymphocytes % (Manual) 7.0 L (13.4-35.0) % Nucleated RBC % 1.0 H (0.0-0.9) % Seg Neutrophils # Man 13.8 H (1.8-7.7) K/mm3 Lymphocytes # (Manual) 1.1 L (1.2-5.4) K/mm3 Sodium 136 L (137-145) mmol/L Potassium 2.9 L* D 3.1 L (3.6-5.0) mmol/L Chloride 95.9 L (98-107) mmol/L Creatinine 0.6 L (0.8-1.5) mg/dL Magnesium 2.40 H (1.7-2.3) mg/dL AST 372 H (5-40) units/L ALT 134 H (7-56) units/L Alkaline Phosphatase 163 H (35-129) units/L Albumin 3.0 L (3.9-5) g/dL
--- NOTE | 2019-04-29 07:30 | Discharge Summary ---
Providers - Providers Date of Admission: 04/25/19 09:54 Attending physician: MIKE GONZALEZ MD 04/24/19 11:47 Consult to Physician [CONS] Routine Comment: Consulting Provider: KYRA ROSA Physician Instructions: Reason For Exam: Acute pancreatitis 04/25/19 10:09 Consult to Physician [CONS] Routine Comment: Consulting Provider: NORI CARVALHO Physician Instructions: Reason For Exam: Fever, Sepsis vs SIRS Primary care physician: [facility] Hospitalization Condition: Stable Hospital course: 29-year-old man with history of alcohol abuse who presents to the hospital with confusion. The patient has not had a drink and typically drinks 1/5 of liquor daily. -Patient was treated empirically with IV fluids pain meds and antiemetics for a cute pancreatitis Etoh dependence and withdrawal Patient received CIWA protocol, thiamine -preventative health counseling performed for 17 minutes -Electrolytes were repleted Patient had fever, max temp 102.7, was treated with empiric antibiotics, blood cultures were negative x2. UA negative, chest x-ray negative. Patient possibly had Sirs due to acute pancreatitis. Patient defervesced prior to discharge. -bp meds were optimized Diagnosis Acute alcoholic pancreatitis Alcohol withdrawal/delirium tremens Alcohol dependence Hypophosphatemia Hypomagnesemia Hypokalemia Transaminitis Sirs, fever htn urgency Disposition: DC-01 TO HOME OR SELFCARE Time spent for discharge: 35 minutes Core Measure Documentation - Palliative Care Palliative Care/ Comfort Measures: Not Applicable - Core Measures Any of the following diagnoses?: none Exam - Constitutional Vitals: Temp Pulse Resp BP Pulse Ox 98.9 F 97 H 18 161/102 96 04/29/19 06:04 04/29/19 06:04 04/29/19 06:04 04/29/19 06:04 04/29/19 06:04 General appearance: Present: no acute distress, well-nourished - EENT Eyes: Present: PERRL ENT: hearing intact, clear oral mucosa - Neck Neck: Present: supple, normal ROM - Respiratory Respiratory effort: normal Respiratory: bilateral: CTA - Cardiovascular Heart Sounds: Present: S1 & S2. Absent: rub, click - Extremities Extremities: pulses symmetrical, No edema Peripheral Pulses: within normal limits - Abdominal General gastrointestinal: Present: soft, non-tender, non-distended, normal bowel sounds Male genitourinary: Present: normal - Integumentary Integumentary: Present: clear, warm, dry - Musculoskeletal Musculoskeletal: gait normal, strength equal bilaterally - Psychiatric Psychiatric: appropriate mood/affect, intact judgment & insight - Neurologic Neurologic: CNII-XII intact, moves all extremities Plan Follow up with: PRIMARY CARE, [Primary Care Provider] - 3-5 Days Prescriptions: cloNIDine-TTS PATCH [Catapres-Tts 0.3mg Patch] 0.3 mg TD QWEEK #4 patch Folic Acid [Folvite] 1 mg PO DAILY #30 tablet hydroCHLOROthiazide [HCTZ] 25 mg PO QDAY #30 tablet Labetalol [Labetalol 200mg TAB] 200 mg PO BID #60 tablet Thiamine [Vitamin B-1] 100 mg PO QDAY #30 tablet
[2019-04-29 09:08] LABS: Hematocrit 40.3 % (35.5-45.6); Hemoglobin 13.6 gm/dl (11.8-15.2); Mean Corpuscular HGB Conc 34 % (32-34); Mean Corpuscular Volume 89 fl (84-94); Red Blood Count 4.51 M/mm3 (3.65-5.03); Red Cell Distribution Width 13.4 % (13.2-15.2)
[2019-04-29 09:25] LABS: Alanine Aminotransferase 124 units/L (7-56); Albumin 3.3 g/dL (3.9-5); BUN/Creatinine Ratio 15; Blood Urea Nitrogen 9 mg/dL (9-20); Calcium 9.6 mg/dL (8.4-10.2); Hemolysis Index 7
[2019-04-29] MEDS ORDERED: THIAMINE 100 MG TAB PO SCH (10:00)
[2019-04-29] MEDS ORDERED: FOLIC ACID 1 MG TAB PO SCH (10:00)
[2019-04-29] MEDS ORDERED: PANTOPRAZOLE 40 MG TAB PO SCH (10:00)
[2019-04-29 10:08] LABS: Band Neutrophils # (Manual) 0.6 K/mm3; Eosinophils % (Manual) 0 % (0.0-4.3); Total Cells Counted 100
[2019-04-29 10:09] LABS: Anisocytosis 1+; Large Platelets 1+; Platelet Count 180 K/mm3 (140-440); Platelet Estimate Consistent w Auto
--- NOTE | 2019-04-29 10:12 | Gastroenterology Progress Note ---
<CHANCEMATKENNEDY Gutierrez - Last Filed: 04/29/19 10:18> Assessment and Plan 1.acute pancreatitis 2.ETOH abuse -afebrile -WBC 21.2 -H/H WNL-no active signs of bleeding -triglycerides- 157 -CRP 20.30-trending down -INR WNL -LFTs trending down -lipase 63-trending down (864 on admission) -abd CT showed acute pancreatitis, severe fatty infiltration of liver, and gallstones (no biliary ductal dilation) -abd U/S showed hepatic steatosis and gallstones -MRCP with no evidence of choledocholithiasis or biliary ductal dilation -etiology-most likely 2/2 ETOH +/- gallstones -clinically, patient's symptoms continue to slowly improve. Tolerating liquids. -advance diet to GI soft -consider surgery consult for cholecystectomy in the future -continue to trend labs and supportive care (IVF, pain control, etc.) -alcohol cessation discussed with pt/family-CIWA protocol -if tolerates diet, patient okay to be d/c per GI standpoint with f/u in clinic in ~2 weeks for further management Subjective Date of service: 04/29/19 Principal diagnosis: alcohol withdrawal, acute Pancreatitis Interval history: Patient sitting up in bedside chair this am w/o acute distress. No new GI complaints. Objective - Constitutional Vitals: Temp Pulse Resp BP Pulse Ox 98.9 F 97 H 18 161/102 96 04/29/19 06:04 04/29/19 06:04 04/29/19 06:04 04/29/19 06:04 04/29/19 06:04 General appearance: no acute distress - EENT Eyes: PERRL, EOM intact ENT: hearing intact - Respiratory Respiratory effort: normal - Cardiovascular Rhythm: regular - Gastrointestinal General gastrointestinal: Present: soft, tender (slight TTP), non-distended, normal bowel sounds - Neurologic Neurological: alert and oriented x3 - Labs CBC & Chem 7: 04/29/19 08:32 04/29/19 08:32 Labs: Laboratory Results - last 24 hr 04/28/19 04/29/19 04/29/19 10:53 08:32 08:32 WBC 21.2 H RBC 4.51 Hgb 13.6 Hct 40.3 MCV 89 MCH 30 MCHC 34 RDW 13.4 Plt Count 180 Add Manual Diff Complete Total Counted 100 Seg Neuts % (Manual) 88.0 H Band Neutrophils % 3.0 Lymphocytes % (Manual) 2.0 L Reactive Lymphs % (Man) 0 Monocytes % (Manual) 5.0 Eosinophils % (Manual) 0 Basophils % (Manual) 1.0 Metamyelocytes % 1.0 Myelocytes % 0 Promyelocytes % 0 Blast Cells % 0 Nucleated RBC % Not Reportable Seg Neutrophils # Man 18.7 H Band Neutrophils # 0.6 Lymphocytes # (Manual) 0.4 L Abs React Lymphs (Man) 0.0 Monocytes # (Manual) 1.1 H Eosinophils # (Manual) 0.0 Basophils # (Manual) 0.2 H Metamyelocytes # 0.2 Myelocytes # 0.0 Promyelocytes # 0.0 Blast Cells # 0.0 WBC Morphology Not Reportable Hypersegmented Neuts Not Reportable Hyposegmented Neuts Not Reportable Hypogranular Neuts Not Reportable Smudge Cells Not Reportable Toxic Granulation Not Reportable Toxic Vacuolation Not Reportable Dohle Bodies Not Reportable Pelger-Huet Anomaly Not Reportable Julieta Rods Not Reportable Platelet Estimate Consistent w auto Clumped Platelets Not Reportable Plt Clumps, EDTA Not Reportable Large Platelets 1+ Giant Platelets Not Reportable Platelet Satelliting Not Reportable Plt Morphology Comment Not Reportable RBC Morphology Not Reportable Dimorphic RBCs Not Reportable Polychromasia Not Reportable Hypochromasia Not Reportable Poikilocytosis Not Reportable Anisocytosis 1+ Microcytosis Not Reportable Macrocytosis Not Reportable Spherocytes Not Reportable Pappenheimer Bodies Not Reportable Sickle Cells Not Reportable Target Cells Not Reportable Tear Drop Cells Not Reportable Ovalocytes Not Reportable Helmet Cells Not Reportable [place] Bodies Not Reportable [place] Rings Not Reportable Teresa Cells Not Reportable Bite Cells Not Reportable Crenated Cell Not Reportable Elliptocytes Not Reportable Acanthocytes (Spur) Not Reportable Rouleaux Not Reportable Hemoglobin C Crystals Not Reportable Schistocytes Not Reportable Malaria parasites Not Reportable Seun Bodies Not Reportable Hem Pathologist Commnt No Sodium 134 L Potassium 3.1 L 3.4 L Chloride 95.0 L Carbon Dioxide 22 Anion Gap 20 BUN 9 Creatinine 0.6 L Estimated GFR > 60 BUN/Creatinine Ratio 15 Glucose 107 H Calcium 9.6 Total Bilirubin 0.80 AST 192 H ALT 124 H Alkaline Phosphatase 175 H C-Reactive Protein 20.30 H Total Protein 7.9 Albumin 3.3 L Albumin/Globulin Ratio 0.7 04/29/19 08:32 WBC RBC Hgb Hct MCV MCH MCHC RDW Plt Count Add Manual Diff Total Counted Seg Neuts % (Manual) Band Neutrophils % Lymphocytes % (Manual) Reactive Lymphs % (Man) Monocytes % (Manual) Eosinophils % (Manual) Basophils % (Manual) Metamyelocytes % Myelocytes % Promyelocytes % Blast Cells % Nucleated RBC % Seg Neutrophils # Man Band Neutrophils # Lymphocytes # (Manual) Abs React Lymphs (Man) Monocytes # (Manual) Eosinophils # (Manual) Basophils # (Manual) Metamyelocytes # Myelocytes # Promyelocytes # Blast Cells # WBC Morphology Hypersegmented Neuts Hyposegmented Neuts Hypogranular Neuts Smudge Cells Toxic Granulation Toxic Vacuolation Dohle Bodies Pelger-Huet Anomaly Julieta Rods Platelet Estimate Clumped Platelets Plt Clumps, EDTA Large Platelets Giant Platelets Platelet Satelliting Plt Morphology Comment RBC Morphology Dimorphic RBCs Polychromasia Hypochromasia Poikilocytosis Anisocytosis Microcytosis Macrocytosis Spherocytes Pappenheimer Bodies Sickle Cells Target Cells Tear Drop Cells Ovalocytes Helmet Cells [place] Bodies [place] Rings [place] Cells Bite Cells Crenated Cell Elliptocytes Acanthocytes (Spur) Rouleaux Hemoglobin C Crystals Schistocytes Malaria parasites Seun Bodies Hem Pathologist Commnt Sodium Potassium 3.4 L Chloride Carbon Dioxide Anion Gap BUN Creatinine Estimated GFR BUN/Creatinine Ratio Glucose Calcium Total Bilirubin AST ALT Alkaline Phosphatase C-Reactive Protein Total Protein Albumin Albumin/Globulin Ratio <KYRA ROSA R - Last Filed: 04/29/19 14:08> Assessment and Plan Plan as noted. Pt should f/u as outpatient, so can do f/u CT to ensure normalization of pancre as, and f/u on LFTs and EtOH, and reconsider gallstones and management. Objective - Constitutional Vitals: Temp Pulse Resp BP Pulse Ox 98.9 F 101 H 19 112/78 97 04/29/19 11:26 04/29/19 11:26 04/29/19 11:26 04/29/19 11:26 04/29/19 11:26 - Labs CBC & Chem 7: 04/29/19 08:32 04/29/19 08:32 Labs: Laboratory Results - last 24 hr 04/29/19 04/29/19 04/29/19 08:32 08:32 08:32 WBC 21.2 H RBC 4.51 Hgb 13.6 Hct 40.3 MCV 89 MCH 30 MCHC 34 RDW 13.4 Plt Count 180 Add Manual Diff Complete Total Counted 100 Seg Neuts % (Manual) 88.0 H Band Neutrophils % 3.0 Lymphocytes % (Manual) 2.0 L Reactive Lymphs % (Man) 0 Monocytes % (Manual) 5.0 Eosinophils % (Manual) 0 Basophils % (Manual) 1.0 Metamyelocytes % 1.0 Myelocytes % 0 Promyelocytes % 0 Blast Cells % 0 Nucleated RBC % Not Reportable Seg Neutrophils # Man 18.7 H Band Neutrophils # 0.6 Lymphocytes # (Manual) 0.4 L Abs React Lymphs (Man) 0.0 Monocytes # (Manual) 1.1 H Eosinophils # (Manual) 0.0 Basophils # (Manual) 0.2 H Metamyelocytes # 0.2 Myelocytes # 0.0 Promyelocytes # 0.0 Blast Cells # 0.0 WBC Morphology Not Reportable Hypersegmented Neuts Not Reportable Hyposegmented Neuts Not Reportable Hypogranular Neuts Not Reportable Smudge Cells Not Reportable Toxic Granulation Not Reportable Toxic Vacuolation Not Reportable Dohle Bodies Not Reportable Pelger-Huet Anomaly Not Reportable Julieta Rods Not Reportable Platelet Estimate Consistent w auto Clumped Platelets Not Reportable Plt Clumps, EDTA Not Reportable Large Platelets 1+ Giant Platelets Not Reportable Platelet Satelliting Not Reportable Plt Morphology Comment Not Reportable RBC Morphology Not Reportable Dimorphic RBCs Not Reportable Polychromasia Not Reportable Hypochromasia Not Reportable Poikilocytosis Not Reportable Anisocytosis 1+ Microcytosis Not Reportable Macrocytosis Not Reportable Spherocytes Not Reportable Pappenheimer Bodies Not Reportable Sickle Cells Not Reportable Target Cells Not Reportable Tear Drop Cells Not Reportable Ovalocytes Not Reportable Helmet Cells Not Reportable [place] Bodies Not Reportable [place] Rings Not Reportable [place] Cells Not Reportable Bite Cells Not Reportable Crenated Cell Not Reportable Elliptocytes Not Reportable Acanthocytes (Spur) Not Reportable Rouleaux Not Reportable Hemoglobin C Crystals Not Reportable Schistocytes Not Reportable Malaria parasites Not Reportable Seun Bodies Not Reportable Hem Pathologist Commnt No Sodium 134 L Potassium 3.4 L 3.4 L Chloride 95.0 L Carbon Dioxide 22 Anion Gap 20 BUN 9 Creatinine 0.6 L Estimated GFR > 60 BUN/Creatinine Ratio 15 Glucose 107 H Calcium 9.6 Total Bilirubin 0.80 AST 192 H ALT 124 H Alkaline Phosphatase 175 H C-Reactive Protein 20.30 H Total Protein 7.9 Albumin 3.3 L Albumin/Globulin Ratio 0.7
[2019-04-29] MEDS: hydroCHLOROthiazide 25 MG TAB PO SCH (10:24)
[2019-04-29] MEDS: LABETALOL 100 MG TAB PO SCH (10:24)
[2019-04-29 11:28] VITALS: BP 112/78
--- NOTE | 2019-04-29 11:34 | Progress Note ---
Assessment and Plan Cultures: 04/23/2019 blood culture: No growth A/P: 29-year-old male with hypertension and ongoing alcohol abuse admitted with: 1) SIRS secondary to acute pancreatitis. No evidence of pancreatic necrosis or infected pseudocyst on CT imaging. Etiology of pancreatitis is likely alcohol +/ - gall stones, but no evidence of biliary ductal dilatation, LFTs minimally elevated. Blood cultures with no growth. No abx needed at this time. 2) Alcohol abuse with fatty liver and withdrawal: on [facility] protocol. 3) Cholelithiasis: will need GB surgery in the future. Recs: Continue to montior off antibiotics. continue to monitor fever and WBC supportive care for acute pancreatitis Mirza Meyers MD [facility], [facility] M: [phone] O: [phone] F: [phone] Subjective Date of service: 04/29/19 Principal diagnosis: alcohol withdrawal, acute Pancreatitis Interval history: Abdomen slightly improved. Objective - Exam Narrative Exam: Constitutional: Alert, cooperative. No acute distress Head, Ears, Nose: Normocephalic, atraumatic. External ears, nose normal Eyes: Conjunctivae/corneas clear. No icterus. No ptosis. Neck: Supple, no meningeal signs Oral: dentition fair, no thrush Cardiovascular: S1, S2 normal. Respiratory: Good air entry, clear to auscultation bilaterally GI: Soft, + tender; bowel sounds normal. No peritoneal signs. Musculoskeletal: No pedal edema, no cyanosis. Skin: No rash or abscess Hem/Lymphatic: No palpable cervical or supraclavicular nodes. No lymphangitis Psych: Mood ok. Affect normal Neurological: Awake, alert, oriented. No gross abnormality - Constitutional Vitals: Vital Signs Temp Pulse Resp BP Pulse Ox 98.9 F 101 H 19 112/78 97 04/29/19 11:26 04/29/19 11:26 04/29/19 11:26 04/29/19 11:26 04/29/19 11:26 Temperature -Last 24 Hours Temperature 98.9 F Temperature 98.9 F Temperature 99.0 F Temperature 99.9 F Temperature 99.4 F - Labs CBC & Chem 7: 04/29/19 08:32 04/29/19 08:32 Labs: Abnormal lab results 04/28/19 04/29/1919 Range/Units 10:53 08:32 08:32 WBC 21.2 H (4.5-11.0) K/mm3 Seg Neuts % (Manual) 88.0 H (40.0-70.0) % Lymphocytes % (Manual) 2.0 L (13.4-35.0) % Seg Neutrophils # Man 18.7 H (1.8-7.7) K/mm3 Lymphocytes # (Manual) 0.4 L (1.2-5.4) K/mm3 Monocytes # (Manual) 1.1 H (0.0-0.8) K/mm3 Basophils # (Manual) 0.2 H (0.0-0.1) K/mm3 Sodium 134 L (137-145) mmol/L Potassium 3.1 L 3.4 L (3.6-5.0) mmol/L Chloride 95.0 L (98-107) mmol/L Creatinine 0.6 L (0.8-1.5) mg/dL Glucose 107 H (75-100) mg/dL AST 192 H (5-40) units/L ALT 124 H (7-56) units/L Alkaline Phosphatase 175 H (35-129) units/L C-Reactive Protein 20.30 H (0.00-1.30) mg/dL Albumin 3.3 L (3.9-5) g/dL 04/29/19 Range/Units 08:32 WBC (4.5-11.0) K/mm3 Seg Neuts % (Manual) (40.0-70.0) % Lymphocytes % (Manual) (13.4-35.0) % Seg Neutrophils # Man (1.8-7.7) K/mm3 Lymphocytes # (Manual) (1.2-5.4) K/mm3 Monocytes # (Manual) (0.0-0.8) K/mm3 Basophils # (Manual) (0.0-0.1) K/mm3 Sodium (137-145) mmol/L Potassium 3.4 L (3.6-5.0) mmol/L Chloride (98-107) mmol/L Creatinine (0.8-1.5) mg/dL Glucose (75-100) mg/dL AST (5-40) units/L ALT (7-56) units/L Alkaline Phosphatase (35-129) units/L C-Reactive Protein (0.00-1.30) mg/dL Albumin (3.9-5) g/dL
== END 2019-04-29 14:46 | disposition home or self-care (01) | DRG 439 ==
LOC: ED 05:46 → 3A 12:53 → CC1 21:01 → OBSVTOIN 04-25 09:54 → 3A 04-27 19:15
PROVIDERS: ADMIT Internal Medicine; ATTEND Internal Medicine
DX: K85.20 Alcohol induced acute pancreatitis without necrosis or infection (principal); F10.231 Alcohol dependence with withdrawal delirium; R65.10 Systemic inflammatory response syndrome (SIRS) of non-infectious origin without acute organ dysfunction; Y90.9 Presence of alcohol in blood, level not specified; R74.0 Nonspecific elevation of levels of transaminase and lactic acid dehydrogenase [LDH]; E86.0 Dehydration; K70.0 Alcoholic fatty liver; E83.39 Other disorders of phosphorus metabolism; E83.42 Hypomagnesemia; K80.20 Calculus of gallbladder without cholecystitis without obstruction; E87.6 Hypokalemia; I16.0 Hypertensive urgency; I10 Essential (primary) hypertension; Z82.49 Family history of ischemic heart disease and other diseases of the circulatory system; Z79.899 Other long term (current) drug therapy
CPT/HCPCS: 36415; 36600; 51702; 71045; 74177; 74181; 76700; 80048; 80053; 80074; 80076; 80307; 81001; 82150; 82803; 82962; 83036; 83690; 83735; 84100; 84132; 84478; 85007; 85025; 85027; 85610; 85730; 86140; 87040; 93005; 93010; 94760; 96365; 96366; 96375; G0378; C9113; J0360; J0692; J1170; J1630; J1940; J2060; J2270; J3370; J3411; J3475; J3480; J3490; J7030; J7040; J7050; Q9967

== ENCOUNTER 2020-11-04 13:28 | Inpatient (IN) | payer OTHER ==
--- NOTE | 2020-11-04 15:04 | Emergency Department Report ---
Blank Doc - Documentation Documentation: 30-year-old male that presents with chest pain, SOB, and heart palpation. Tachycardia and tachypnea in triage. 1- This initial assessment/diagnostic orders/clinical plan/ treatment(s) is/are subject to change based on pt's health status, clinical progression and re-assessment by fellow clinical providers in the ED. Further treatment and workup at subsequent clinical provers discretion. Patient/guardians urged not to elope from ED as their condition may be serious if not clinically assessed and managed. 2-cardiac workup
--- NOTE | 2020-11-04 15:49 | XRay Report ---
CHEST 2 VIEWS INDICATION / CLINICAL INFORMATION: Chest Pain. COMPARISON: 04/23/2019 FINDINGS: SUPPORT DEVICES: None. HEART / MEDIASTINUM: No significant abnormality. LUNGS / PLEURA: There patchy bilateral pulmonary opacities. ADDITIONAL FINDINGS: No significant additional findings. IMPRESSION: 1. Patchy bilateral pulmonary opacities likely indicating multifocal infectious or inflammatory proce ss. Signer Name: Alexander Coto MD Signed: 11/04/2020 3:45 PM Workstation Name: [id number]
[2020-11-04 16:05] LABS: Basophils # (Auto) 0.1 K/mm3 (0.0-0.1); Basophils % (Auto) 0.5 % (0.0-1.8); Eosinophils % (Auto) 0.5 % (0.0-4.3); Hematocrit 41.1 % (35.5-45.6); Hemoglobin 13.8 gm/dl (11.8-15.2); Lymphocytes # (Auto) 1.6 K/mm3 (1.2-5.4); Lymphocytes % (Auto) 15.1 % (13.4-35.0); Mean Corpuscular HGB Conc 34 % (32-34); Mean Corpuscular Volume 89 fl (84-94); Monocytes # (Auto) 0.9 K/mm3 (0.0-0.8); Monocytes % (Auto) 8.4 % (0.0-7.3); Platelet Count 149 K/mm3 (140-440); Red Blood Count 4.63 M/mm3 (3.65-5.03); Red Cell Distribution Width 17.9 % (13.2-15.2)
[2020-11-04 16:18] LABS: INR 1.13 (0.87-1.13)
[2020-11-04 16:19] LABS: Partial Thromboplastin Time 32.6 Sec. (24.2-36.6)
[2020-11-04 16:26] LABS: Alanine Aminotransferase 107 units/L (7-56); Albumin 3.9 g/dL (3.9-5); Blood Urea Nitrogen 13 mg/dL (9-20); Calcium 8.5 mg/dL (8.4-10.2); Hemolysis Index 7
[2020-11-04 16:27] LABS: BUN/Creatinine Ratio 22
[2020-11-04 18:51] LABS: Amphetamine Screen,Urine Negative; Benzodiazepines Screen,Urine Negative; Cannabinoid Screen,Urine Negative; Cocaine Screen,Urine Negative; Methadone Screen,Urine Negative; Opiate Screen,Urine Negative
[2020-11-04 18:59] LABS: Bilirubin,Urine NEG (Negative); Blood,Urine MOD (Negative); Color,Urine Amber (Yellow); Mucus,Urine 3+ /HPF; RBC,Urine < 1.0 /HPF (0.0-6.0)
[2020-11-04 19:01] LABS: Protein,Urine >500 mg/dL (Negative)
[2020-11-04] MEDS ORDERED: CEFEPIME/NS 1 GM/100 ML 1 GM/100 ML BAG IV ONE (21:28)
[2020-11-04 22:16] LABS: C-Reactive Protein 0.6 mg/dL (0.00-1.30)
--- NOTE | 2020-11-04 23:17 | Emergency Department Report ---
ED General Adult HPI - General Chief complaint: Arrhythmia/Palpitations Stated complaint: CHEST PAINS/VOMITTING BLOOD Time Seen by Provider: 11/04/20 15:00 Source: patient Mode of arrival: Ambulatory Limitations: No Limitations - History of Present Illness Initial comments: The patient presents to the emergency department with a chief complaint of heart palpitations that started 2 to 4 weeks ago. Patient also complains of a cough with mild chest pain with coughing. Patient states for the last couple days he is also coughed up blood. Patient denies abdominal pain or headache. -: week(s) Location: chest Radiation: non-radiation Severity scale (0 -10): 2 Consistency: constant Improves with: none Worsens with: none Associated Symptoms: denies other symptoms Treatments Prior to Arrival: none - Related Data Previous Rx's Medication Instructions Recorded Last Taken Type Folic Acid [Folvite] 1 mg PO DAILY #30 tablet 04/29/19 Unknown Rx Thiamine [Vitamin B-1] 100 mg PO QDAY #30 tablet 04/29/19 Unknown Rx cloNIDine-TTS PATCH [Catapres-Tts 0.3 mg TD QWEEK #4 patch 04/29/19 Unknown Rx 0.3mg Patch] hydroCHLOROthiazide [HCTZ] 25 mg PO QDAY #30 tablet 04/29/19 Unknown Rx labetaloL [Labetalol 200mg TAB] 200 mg PO BID #60 tablet 04/29/19 Unknown Rx Allergies Allergy/AdvReac Type Severity Reaction Status Date / Time Fish Containing Products Allergy Swelling Verified 11/04/20 13:46 ED Review of Systems ROS: Stated complaint: CHEST PAINS/VOMITTING BLOOD Other details as noted in HPI Constitutional: denies: chills, fever Eyes: denies: eye pain, eye discharge, vision change ENT: denies: ear pain, throat pain Respiratory: denies: cough, shortness of breath, wheezing Cardiovascular: palpitations. denies: chest pain Endocrine: no symptoms reported Gastrointestinal: denies: abdominal pain, nausea, diarrhea Genitourinary: denies: urgency, dysuria Musculoskeletal: denies: back pain, joint swelling, arthralgia Skin: denies: rash, lesions Neurological: denies: headache, weakness, paresthesias Psychiatric: denies: anxiety, depression Hematological/Lymphatic: denies: easy bleeding, easy bruising ED Past Medical Hx - Past Medical History Hx Asthma: No Additional medical history: IRRREGULAR HEART BEAT - Surgical History Additional Surgical History: Right Wrist surgery - Social History Smoking Status: Never Smoker Substance Use Type: Alcohol - Medications Home Medications: Home Medications Medication Instructions Recorded Confirmed Last Taken Type Folic Acid [Folvite] 1 mg PO DAILY #30 tablet 04/29/19 Unknown Rx Thiamine [Vitamin B-1] 100 mg PO QDAY #30 tablet 04/29/19 Unknown Rx cloNIDine-TTS PATCH [Catapres-Tts 0.3 mg TD QWEEK #4 patch 04/29/19 Unknown Rx 0.3mg Patch] hydroCHLOROthiazide [HCTZ] 25 mg PO QDAY #30 tablet 04/29/19 Unknown Rx labetaloL [Labetalol 200mg TAB] 200 mg PO BID #60 tablet 04/29/19 Unknown Rx ED Physical Exam - General Limitations: No Limitations General appearance: alert, in no apparent distress - Head Head exam: Present: atraumatic, normocephalic - Eye Eye exam: Present: normal appearance - ENT ENT exam: Present: mucous membranes dry - Neck Neck exam: Present: normal inspection - Respiratory Respiratory exam: Present: rales. Absent: respiratory distress - Cardiovascular Cardiovascular Exam: Present: normal rhythm, tachycardia. Absent: systolic murmur, diastolic murmur, rubs, gallop - GI/Abdominal GI/Abdominal exam: Present: soft, normal bowel sounds. Absent: distended, te nderness - Rectal Rectal exam: Present: deferred - Extremities Exam Extremities exam: Present: normal inspection - Back Exam Back exam: Present: normal inspection - Neurological Exam Neurological exam: Present: alert, oriented X3, CN II-XII intact. Absent: motor sensory deficit - Psychiatric Psychiatric exam: Present: normal affect, normal mood - Skin Skin exam: Present: warm, dry, intact, normal color. Absent: rash ED Course Vital Signs 11/04/20 11/04/20 11/04/20 13:50 19:49 20:01 Temperature 98.7 F Pulse Rate 125 H 124 H 126 H Respiratory 26 H 30 H 23 Rate Blood Pressure 125/86 O2 Sat by Pulse 95 92 85 Oximetry 11/04/20 11/04/20 11/04/20 20:15 20:31 20:45 Temperature Pulse Rate 125 H 131 H 127 H Respiratory 31 H 29 H 33 H Rate Blood Pressure O2 Sat by Pulse 77 L 90 91 Oximetry 11/04/20 11/04/20 11/04/20 21:01 21:15 21:30 Temperature Pulse Rate 123 H Respiratory 31 H 16 Rate Blood Pressure 144/94 O2 Sat by Pulse 89 91 91 Oximetry 11/04/20 11/04/20 11/04/20 21:45 22:00 22:16 Temperature Pulse Rate Respiratory Rate Blood Pressure 152/86 147/108 O2 Sat by Pulse 90 92 94 Oximetry 11/04/20 11/04/20 11/04/20 22:30 22:45 22:52 Temperature Pulse Rate Respiratory 22 Rate Blood Pressure 143/102 144/88 O2 Sat by Pulse 94 94 95 Oximetry 11/04/20 23:00 Temperature Pulse Rate 129 H Respiratory 21 Rate Blood Pressure 145/102 O2 Sat by Pulse 95 Oximetry ED Medical Decision Making - Lab Data Result diagrams: 11/04/20 15:40 11/04/20 Unknown Lab Results 11/04/20 11/04/20 11/04/20 Range/Units 15:40 15:40 15:40 WBC 10.4 (4.5-11.0) K/mm3 RBC 4.63 (3.65-5.03) M/mm3 Hgb 13.8 (11.8-15.2) gm/dl Hct 41.1 (35.5-45.6) % MCV 89 (84-94) fl MCH 30 (28-32) pg MCHC 34 (32-34) % RDW 17.9 H (13.2-15.2) % Plt Count 149 (140-440) K/mm3 Lymph % (Auto) 15.1 (13.4-35.0) % [place] % (Auto) 8.4 H (0.0-7.3) % Eos % (Auto) 0.5 (0.0-4.3) % Baso % (Auto) 0.5 (0.0-1.8) % Lymph # (Auto) 1.6 (1.2-5.4) K/mm3 [place] # (Auto) 0.9 H (0.0-0.8) K/mm3 Eos # (Auto) 0.0 (0.0-0.4) K/mm3 Baso # (Auto) 0.1 (0.0-0.1) K/mm3 Seg Neutrophils % 75.5 H (40.0-70.0) % Seg Neutrophils # 7.9 H (1.8-7.7) K/mm3 PT 14.3 (12.2-14.9) Sec. INR 1.13 (0.87-1.13) APTT 32.6 (24.2-36.6) Sec. D-Dimer (0-234) ng/mlDDU Sodium 139 (137-145) mmol/L Potassium 3.8 (3.6-5.0) mmol/L Chloride 101.8 (98-107) mmol/L Carbon Dioxide 22 (22-30) mmol/L Anion Gap 19 mmol/L BUN 13 (9-20) mg/dL Creatinine 0.6 L (0.8-1.3) mg/dL Estimated GFR > 60 ml/min BUN/Creatinine Ratio 22 % Glucose 98 (75-100) mg/dL Lactic Acid (0.7-2.0) mmol/L Calcium 8.5 (8.4-10.2) mg/dL Ferritin (30.0-300.0) ng/mL Total Bilirubin 0.70 (0.1-1.2) mg/dL AST 213 H (5-40) units/L ALT 107 H (7-56) units/L Alkaline Phosphatase 184 H (35-129) units/L Lactate Dehydrogenase (91-180) units/L Troponin T < 0.010 (0.00-0.029) ng/mL C-Reactive Protein (0.00-1.30) mg/dL Total Protein 7.7 (6.3-8.2) g/dL Albumin 3.9 (3.9-5) g/dL Albumin/Globulin Ratio 1.0 % Lipase 46 (13-60) units/L TSH (0.270-4.200) mlU/mL Free T4 (0.76-1.46) ng/dL Urine Color (Yellow) Urine Turbidity (Clear) Urine pH (5.0-7.0) Ur Specific Basco (1.003-1.030) Urine Protein (Negative) mg/dL Urine Glucose (UA) (Negative) mg/dL Urine Ketones (Negative) mg/dL Urine Blood (Negative) Urine Nitrite (Negative) Urine Bilirubin (Negative) Urine Urobilinogen (<2.0) mg/dL Ur Leukocyte Esterase (Negative) Urine WBC (Auto) (0.0-6.0) /HPF Urine RBC (Auto) (0.0-6.0) /HPF Urine Mucus /HPF Urine Opiates Screen Urine Methadone Screen Ur Barbiturates Screen Ur Phencyclidine Scrn Ur Amphetamines Screen U Benzodiazepines Scrn Urine Cocaine Screen U Marijuana (THC) Screen Drugs of Abuse Note Plasma/Serum Alcohol (0-0.07) % 11/04/20 11/04/20 11/04/20 Range/Units 15:40 18:08 18:08 WBC (4.5-11.0) K/mm3 RBC (3.65-5.03) M/mm3 Hgb (11.8-15.2) gm/dl Hct (35.5-45.6) % MCV (84-94) fl MCH (28-32) pg MCHC (32-34) % RDW (13.2-15.2) % Plt Count (140-440) K/mm3 Lymph % (Auto) (13.4-35.0) % [place] % (Auto) (0.0-7.3) % Eos % (Auto) (0.0-4.3) % Baso % (Auto) (0.0-1.8) % Lymph # (Auto) (1.2-5.4) K/mm3 [place] # (Auto) (0.0-0.8) K/mm3 Eos # (Auto) (0.0-0.4) K/mm3 Baso # (Auto) (0.0-0.1) K/mm3 Seg Neutrophils % (40.0-70.0) % Seg Neutrophils # (1.8-7.7) K/mm3 PT (12.2-14.9) Sec. INR (0.87-1.13) APTT (24.2-36.6) Sec. D-Dimer (0-234) ng/mlDDU Sodium (137-145) mmol/L Potassium (3.6-5.0) mmol/L Chloride (98-107) mmol/L Carbon Dioxide (22-30) mmol/L Anion Gap mmol/L BUN (9-20) mg/dL Creatinine (0.8-1.3) mg/dL Estimated GFR ml/min BUN/Creatinine Ratio % Glucose (75-100) mg/dL Lactic Acid (0.7-2.0) mmol/L Calcium (8.4-10.2) mg/dL Ferritin (30.0-300.0) ng/mL Total Bilirubin (0.1-1.2) mg/dL AST (5-40) units/L ALT (7-56) units/L Alkaline Phosphatase (35-129) units/L Lactate Dehydrogenase (91-180) units/L Troponin T (0.00-0.029) ng/mL C-Reactive Protein (0.00-1.30) mg/dL Total Protein (6.3-8.2) g/dL Albumin (3.9-5) g/dL Albumin/Globulin Ratio % Lipase (13-60) units/L TSH (0.270-4.200) mlU/mL Free T4 (0.76-1.46) ng/dL Urine Color [place] (Yellow) Urine Turbidity Clear (Clear) Urine pH 5.0 (5.0-7.0) Ur Specific [place] 1.029 (1.003-1.030) Urine Protein >500 (Negative) mg/dL Urine Glucose (UA) Neg (Negative) mg/dL Urine Ketones Neg (Negative) mg/dL Urine Blood Mod (Negative) Urine Nitrite Neg (Negative) Urine Bilirubin Neg (Negative) Urine Urobilinogen 4.0 (<2.0) mg/dL Ur Leukocyte Esterase Neg (Negative) Urine WBC (Auto) 1.0 (0.0-6.0) /HPF Urine RBC (Auto) < 1.0 (0.0-6.0) /HPF Urine Mucus 3+ /HPF Urine Opiates Screen Negative Urine Methadone Screen Negative Ur Barbiturates Screen Negative Ur Phencyclidine Scrn Negative Ur Amphetamines Screen Negative U Benzodiazepines Scrn Negative Urine Cocaine Screen Negative U Marijuana (THC) Screen Negative Drugs of Abuse Note Disclamer Plasma/Serum Alcohol 0.29 H (0-0.07) % 11/04/20 11/04/20 11/04/20 Range/Units 20:32 20:53 20:53 WBC (4.5-11.0) K/mm3 RBC (3.65-5.03) M/mm3 Hgb (11.8-15.2) gm/dl Hct (35.5-45.6) % MCV (84-94) fl MCH (28-32) pg MCHC (32-34) % RDW (13.2-15.2) % Plt Count (140-440) K/mm3 Lymph % (Auto) (13.4-35.0) % [place] % (Auto) (0.0-7.3) % Eos % (Auto) (0.0-4.3) % Baso % (Auto) (0.0-1.8) % Lymph # (Auto) (1.2-5.4) K/mm3 [place] # (Auto) (0.0-0.8) K/mm3 Eos # (Auto) (0.0-0.4) K/mm3 Baso # (Auto) (0.0-0.1) K/mm3 Seg Neutrophils % (40.0-70.0) % Seg Neutrophils # (1.8-7.7) K/mm3 PT (12.2-14.9) Sec. INR (0.87-1.13) APTT (24.2-36.6) Sec. D-Dimer 183.56 (0-234) ng/mlDDU Sodium (137-145) mmol/L Potassium (3.6-5.0) mmol/L Chloride (98-107) mmol/L Carbon Dioxide (22-30) mmol/L Anion Gap mmol/L BUN (9-20) mg/dL Creatinine (0.8-1.3) mg/dL Estimated GFR ml/min BUN/Creatinine Ratio % Glucose (75-100) mg/dL Lactic Acid (0.7-2.0) mmol/L Calcium (8.4-10.2) mg/dL Ferritin (30.0-300.0) ng/mL Total Bilirubin (0.1-1.2) mg/dL AST (5-40) units/L ALT (7-56) units/L Alkaline Phosphatase (35-129) units/L Lactate Dehydrogenase (91-180) units/L Troponin T < 0.010 (0.00-0.029) ng/mL C-Reactive Protein (0.00-1.30) mg/dL Total Protein (6.3-8.2) g/dL Albumin (3.9-5) g/dL Albumin/Globulin Ratio % Lipase (13-60) units/L TSH (0.270-4.200) mlU/mL Free T4 0.74 L (0.76-1.46) ng/dL Urine Color (Yellow) Urine Turbidity (Clear) Urine pH (5.0-7.0) Ur Specific Basco (1.003-1.030) Urine Protein (Negative) mg/dL Urine Glucose (UA) (Negative) mg/dL Urine Ketones (Negative) mg/dL Urine Blood (Negative) Urine Nitrite (Negative) Urine Bilirubin (Negative) Urine Urobilinogen (<2.0) mg/dL Ur Leukocyte Esterase (Negative) Urine WBC (Auto) (0.0-6.0) /HPF Urine RBC (Auto) (0.0-6.0) /HPF Urine Mucus /HPF Urine Opiates Screen Urine Methadone Screen Ur Barbiturates Screen Ur Phencyclidine Scrn Ur Amphetamines Screen U Benzodiazepines Scrn Urine Cocaine Screen U Marijuana (THC) Screen Drugs of Abuse Note Plasma/Serum Alcohol (0-0.07) % 11/04/20 11/04/20 11/04/20 Range/Units 20:53 21:44 23:23 WBC (4.5-11.0) K/mm3 RBC (3.65-5.03) M/mm3 Hgb (11.8-15.2) gm/dl Hct (35.5-45.6) % MCV (84-94) fl MCH (28-32) pg MCHC (32-34) % RDW (13.2-15.2) % Plt Count (140-440) K/mm3 Lymph % (Auto) (13.4-35.0) % [place] % (Auto) (0.0-7.3) % Eos % (Auto) (0.0-4.3) % Baso % (Auto) (0.0-1.8) % Lymph # (Auto) (1.2-5.4) K/mm3 [place] # (Auto) (0.0-0.8) K/mm3 Eos # (Auto) (0.0-0.4) K/mm3 Baso # (Auto) (0.0-0.1) K/mm3 Seg Neutrophils % (40.0-70.0) % Seg Neutrophils # (1.8-7.7) K/mm3 PT (12.2-14.9) Sec. INR (0.87-1.13) APTT (24.2-36.6) Sec. D-Dimer (0-234) ng/mlDDU Sodium (137-145) mmol/L Potassium (3.6-5.0) mmol/L Chloride (98-107) mmol/L Carbon Dioxide (22-30) mmol/L Anion Gap mmol/L BUN (9-20) mg/dL Creatinine (0.8-1.3) mg/dL Estimated GFR ml/min BUN/Creatinine Ratio % Glucose (75-100) mg/dL Lactic Acid 2.60 H* 2.90 H* (0.7-2.0) mmol/L Calcium (8.4-10.2) mg/dL Ferritin (30.0-300.0) ng/mL Total Bilirubin (0.1-1.2) mg/dL AST (5-40) units/L ALT (7-56) units/L Alkaline Phosphatase (35-129) units/L Lactate Dehydrogenase (91-180) units/L Troponin T (0.00-0.029) ng/mL C-Reactive Protein (0.00-1.30) mg/dL Total Protein (6.3-8.2) g/dL Albumin (3.9-5) g/dL Albumin/Globulin Ratio % Lipase (13-60) units/L TSH 2.840 (0.270-4.200) mlU/mL Free T4 (0.76-1.46) ng/dL Urine Color (Yellow) Urine Turbidity (Clear) Urine pH (5.0-7.0) Ur Specific Basco (1.003-1.030) Urine Protein (Negative) mg/dL Urine Glucose (UA) (Negative) mg/dL Urine Ketones (Negative) mg/dL Urine Blood (Negative) Urine Nitrite (Negative) Urine Bilirubin (Negative) Urine Urobilinogen (<2.0) mg/dL Ur Leukocyte Esterase (Negative) Urine WBC (Auto) (0.0-6.0) /HPF Urine RBC (Auto) (0.0-6.0) /HPF Urine Mucus /HPF Urine Opiates Screen Urine Methadone Screen Ur Barbiturates Screen Ur Phencyclidine Scrn Ur Amphetamines Screen U Benzodiazepines Scrn Urine Cocaine Screen U Marijuana (THC) Screen Drugs of Abuse Note Plasma/Serum Alcohol (0-0.07) % 11/04/20 11/04/20 Range/Units Unknown Unknown WBC (4.5-11.0) K/mm3 RBC (3.65-5.03) M/mm3 Hgb (11.8-15.2) gm/dl Hct (35.5-45.6) % MCV (84-94) fl MCH (28-32) pg MCHC (32-34) % RDW (13.2-15.2) % Plt Count (140-440) K/mm3 Lymph % (Auto) (13.4-35.0) % [place] % (Auto) (0.0-7.3) % Eos % (Auto) (0.0-4.3) % Baso % (Auto) (0.0-1.8) % Lymph # (Auto) (1.2-5.4) K/mm3 [place] # (Auto) (0.0-0.8) K/mm3 Eos # (Auto) (0.0-0.4) K/mm3 Baso # (Auto) (0.0-0.1) K/mm3 Seg Neutrophils % (40.0-70.0) % Seg Neutrophils # (1.8-7.7) K/mm3 PT (12.2-14.9) Sec. INR (0.87-1.13) APTT (24.2-36.6) Sec. D-Dimer (0-234) ng/mlDDU Sodium (137-145) mmol/L Potassium (3.6-5.0) mmol/L Chloride (98-107) mmol/L Carbon Dioxide (22-30) mmol/L Anion Gap mmol/L BUN (9-20) mg/dL Creatinine (0.8-1.3) mg/dL Estimated GFR ml/min BUN/Creatinine Ratio % Glucose 92 (75-100) mg/dL Lactic Acid (0.7-2.0) mmol/L Calcium (8.4-10.2) mg/dL Ferritin 9.4 L (30.0-300.0) ng/mL Total Bilirubin (0.1-1.2) mg/dL AST (5-40) units/L ALT (7-56) units/L Alkaline Phosphatase (35-129) units/L Lactate Dehydrogenase 365 H (91-180) units/L Troponin T (0.00-0.029) ng/mL C-Reactive Protein 0.60 (0.00-1.30) mg/dL Total Protein (6.3-8.2) g/dL Albumin (3.9-5) g/dL Albumin/Globulin Ratio % Lipase (13-60) units/L TSH (0.270-4.200) mlU/mL Free T4 (0.76-1.46) ng/dL Urine Color (Yellow) Urine Turbidity (Clear) Urine pH (5.0-7.0) Ur Specific [place] (1.003-1.030) Urine Protein (Negative) mg/dL Urine Glucose (UA) (Negative) mg/dL Urine Ketones (Negative) mg/dL Urine Blood (Negative) Urine Nitrite (Negative) Urine Bilirubin (Negative) Urine Urobilinogen (<2.0) mg/dL Ur Leukocyte Esterase (Negative) Urine WBC (Auto) (0.0-6.0) /HPF Urine RBC (Auto) (0.0-6.0) /HPF Urine Mucus /HPF Urine Opiates Screen Urine Methadone Screen Ur Barbiturates Screen Ur Phencyclidine Scrn Ur Amphetamines Screen U Benzodiazepines Scrn Urine Cocaine Screen U Marijuana (THC) Screen Drugs of Abuse Note Plasma/Serum Alcohol (0-0.07) % - EKG Data -: EKG Interpreted by Me EKG shows normal: sinus rhythm Rate: tachycardia - Radiology Data Radiology results: report reviewed - Medical Decision Making IV antibiotics and IV fluids given Chest x-ray reviewed Results discussed with patient Admitting physician will follow results of the CT angiogram of the chest Critical Care Time: Yes Critical care time in (mins) excluding proc time.: 35 Critical care attestation.: If time is entered above; I have spent that time in minutes in the direct care of this critically ill patient, excluding procedure time. ED Disposition Clinical Impression: Sepsis, Bilateral pneumonia Disposition: OP ADMIT IP TO THIS HOSP Is pt being admited?: Yes Does the pt Need Aspirin: No Condition: Fair Instructions: Bacterial Pneumonia (ED) Referrals: PRIMARY CARE, [Primary Care Provider] - 3-5 Days
[2020-11-05] MEDS ORDERED: SODIUM CHLORIDE 0.9% 1000 ML 1,000 ML IV ONE ×2 (00:26→04:47)
--- NOTE | 2020-11-05 01:19 | Cat Scan Report ---
CTA CHEST WITH IV CONTRAST INDICATION / CLINICAL INFORMATION: P.E. PROTOCOL!!! Tachycardic / Hypoxic. TECHNIQUE: Axial CT images were obtained through the chest after injection of 100 mL Omnipaque 350 IV contrast. 3 plane MIP and/or 3D reconstructions were produced. All CT scans at this location are performed usin g CT dose reduction for GILBERTO by means of automated exposure control. COMPARISON: Chest radiograph one day prior FINDINGS: PULMONARY ARTERIES: No pulmonary emboli. THORACIC AORTA: No significant abnormality. HEART: Borderline heart size. CORONARY ARTERIES: No significant calcification. PLEURA: No pleural effusion. No pneumothorax. LYMPH NODES: No significant adenopathy. LUNGS: There are moderate patchy bilateral airspace opacities with an upper lobe predominance. ADDITIONAL FINDINGS: None. UPPER ABDOMEN: No acute findings. Hepatic steatosis. SKELETAL STRUCTURES: No significant osseous abnormality. IMPRESSION: 1. No CT evidence for pulmonary embolism. 2. Moderate patchy bilateral airspace opacities worrisome for multifocal pneumonia. Atypical and zayra l etiologies are possible. 3. Hepatic steatosis. Signer Name: Karen Tellez MD Signed: 11/05/2020 1:14 AM Workstation Name: [email or web address]
[2020-11-05] MEDS ORDERED: ALPRAZolam 0.5 MG TAB PO ONE (02:32)
[2020-11-05] MEDS ORDERED: MAGNESIUM HYDROXIDE (MOM) ORAL LIQD UDC PO PRN (02:37)
[2020-11-05] MEDS ORDERED: MORPHINE 2 MG/1 ML INJ IV PRN (02:37)
[2020-11-05] MEDS ORDERED: ACETAMINOPHEN 325 MG TAB PO PRN (02:37)
[2020-11-05] MEDS ORDERED: ONDANSETRON 4 MG/2 ML INJ IV PRN (02:37)
--- NOTE | 2020-11-05 02:45 | History and Physical Report ---
History of Present Illness Date of examination: 11/05/20 Date of admission: 11/05/2020 Chief complaint: Palpitation History of present illness: 30-year-old -Citizen Of [place] male with no significant past medical history presenting in the emergency room today complaining of palpitations cough. Symptoms have been ongoing for about 2 weeks. He has had associated mild chest discomfort. Over the last few few days he has been coughing up blood-tinged sputum. Denies any headache or dizziness, denies any diaphoresis, denies any nausea vomiting and no abdominal pain. Patient indicates that he just returned from [place] about a week ago but does not recall having any sick contacts. Denies having any contact with anyone with COVID-19. Upon arrival in the emergency room today patient was quite tachycardic. Work-up reveals: CT angiogram of the chest shows moderate patchy bilateral airspace opacities worrisome for multifocal pneumonia. Atypical and viral etio logies are possible. There is also hepatic steatosis. No CT evidence for pulmonary embolism. Patient is being admitted for pneumonia. We also rule out COVID-19. Past History Past Medical History: No medical history Past Surgical History: Other (Right wrist surgery) Social history: alcohol abuse Family history: no significant family history Medications and Allergies Allergies Allergy/AdvReac Type Severity Reaction Status Date / Time Fish Containing Products Allergy Swelling Verified 11/04/20 13:46 Home Medications Medication Instructions Recorded Confirmed Last Taken Type Folic Acid [Folvite] 1 mg PO DAILY #30 tablet 04/29/19 Unknown Rx Thiamine [Vitamin B-1] 100 mg PO QDAY #30 tablet 04/29/19 Unknown Rx cloNIDine-TTS PATCH [Catapres-Tts 0.3 mg TD QWEEK #4 patch 04/29/19 Unknown Rx 0.3mg Patch] hydroCHLOROthiazide [HCTZ] 25 mg PO QDAY #30 tablet 04/29/19 Unknown Rx labetaloL [Labetalol 200mg TAB] 200 mg PO BID #60 tablet 04/29/19 Unknown Rx Active Meds: Active Medications Acetaminophen (Acetaminophen 325 Mg Tab) 650 mg PO Q4H PRN PRN Reason: Pain MILD(1-3)/Fever >100.5/GUILLAUME Heparin Sodium (Porcine) (Heparin 5,000 Unit/1 Ml Vial) 5,000 unit SUB-Q Q8HR DEVI Ceftriaxone Sodium (Rocephin/Ns 2 Gm/100 Ml) 2 gm in 100 mls @ 200 mls/hr IV Q24H DEVI; Protocol Azithromycin (Zithromax/Ns) 500 mg in 250 mls @ 250 mls/hr IV Q24H DEVI; Pr otocol Magnesium Hydroxide (Magnesium Hydroxide (Mom) Oral Liqd Udc) 30 ml PO Q4H PRN PRN Reason: Constipation Morphine Sulfate (Morphine 2 Mg/1 Ml Inj) 2 mg IV Q4H PRN PRN Reason: Pain, Moderate (4-6) Ondansetron HCl (Ondansetron 4 Mg/2 Ml Inj) 4 mg IV Q8H PRN PRN Reason: Nausea And Vomiting Sodium Chloride (Sodium Chloride 0.9% 10 Ml Flush Syringe) 10 ml IV BID DEVI Sodium Chloride (Sodium Chloride 0.9% 10 Ml Flush Syringe) 10 ml IV PRN PRN PRN Reason: LINE FLUSH Review of Systems Constitutional: no fever, no chills Ears, nose, mouth and throat: no nasal congestion, no sore throat Cardiovascular: no chest pain, no palpitations Respiratory: no cough, no shortness of breath Gastrointestinal: no nausea, no vomiting, no diarrhea Genitourinary Male: no dysuria, no hematuria, no flank pain Musculoskeletal: no neck pain, no low back pain Integumentary: no rash, no pruritis Neurological: no headaches, no confusion Psychiatric: no anxiety, no depression Endocrine: no polyphagia, no polydipsia, no polyuria, no nocturia Exam - Constitutional Vitals: Temp Pulse Resp BP Pulse Ox 98.7 F 129 H 21 145/102 95 11/04/20 13:50 11/04/20 23:00 11/04/20 23:00 11/04/20 23:00 11/04/20 23:00 General appearance: Present: no acute distress, well-nourished - EENT Eyes: Present: PERRL, EOM intact. Absent: scleral icterus ENT: hearing intact, clear oral mucosa, dentition normal - Neck Neck: Present: supple, normal ROM - Respiratory Respiratory effort: normal Respiratory: bilateral: diminished - Cardiovascular Rhythm: regular Heart Sounds: Present: S1 & S2, systolic murmur, diastolic murmur. Absent: gallop, rub, click - Extremities Extremities: no ischemia, pulses intact, pulses symmetrical, No edema, normal te mperature, normal color, Full ROM Peripheral Pulses: within normal limits - Abdominal General gastrointestinal: Present: soft, non-tender, non-distended, normal bowel sounds. Absent: mass - Integumentary Integumentary: Present: clear, warm, dry, normal turgor. Absent: rash - Musculoskeletal Musculoskeletal: strength equal bilaterally - Psychiatric Psychiatric: appropriate mood/affect, intact judgment & insight, memory intact, cooperative - Neurologic Neurologic: CNII-XII intact, no focal deficits, moves all extremities HEART Score - HEART Score Troponin: Troponin T < 0.010 ng/mL (0.00-0.029) 11/04/20 20:32 Results - Labs CBC & Chem 7: 11/04/20 15:40 11/04/20 Unknown Labs: Abnormal lab results 11/04/20 11/04/20 11/04/20 Range/Units 15:40 15:40 15:40 RDW 17.9 H (13.2-15.2) % [place] % (Auto) 8.4 H (0.0-7.3) % [place] # (Auto) 0.9 H (0.0-0.8) K/mm3 Seg Neutrophils % 75.5 H (40.0-70.0) % Seg Neutrophils # 7.9 H (1.8-7.7) K/mm3 Creatinine 0.6 L (0.8-1.3) mg/dL Lactic Acid (0.7-2.0) mmol/L Ferritin (30.0-300.0) ng/mL AST 213 H (5-40) units/L ALT 107 H (7-56) units/L Alkaline Phosphatase 184 H (35-129) units/L Lactate Dehydrogenase (91-180) units/L Free T4 (0.76-1.46) ng/dL Plasma/Serum Alcohol 0.29 H (0-0.07) % 11/04/20 11/04/20 11/04/20 Range/Units 20:53 21:44 23:23 RDW (13.2-15.2) % [place] % (Auto) (0.0-7.3) % [place] # (Auto) (0.0-0.8) K/mm3 Seg Neutrophils % (40.0-70.0) % Seg Neutrophils # (1.8-7.7) K/mm3 Creatinine (0.8-1.3) mg/dL Lactic Acid 2.60 H* 2.90 H* (0.7-2.0) mmol/L Ferritin (30.0-300.0) ng/mL AST (5-40) units/L ALT (7-56) units/L Alkaline Phosphatase (35-129) units/L Lactate Dehydrogenase (91-180) units/L Free T4 0.74 L (0.76-1.46) ng/dL Plasma/Serum Alcohol (0-0.07) % 11/04/20 11/04/20 Range/Units Unknown Unknown RDW (13.2-15.2) % [place] % (Auto) (0.0-7.3) % [place] # (Auto) (0.0-0.8) K/mm3 Seg Neutrophils % (40.0-70.0) % Seg Neutrophils # (1.8-7.7) K/mm3 Creatinine (0.8-1.3) mg/dL Lactic Acid (0.7-2.0) mmol/L Ferritin 9.4 L (30.0-300.0) ng/mL AST (5-40) units/L ALT (7-56) units/L Alkaline Phosphatase (35-129) units/L Lactate Dehydrogenase 365 H (91-180) units/L Free T4 (0.76-1.46) ng/dL Plasma/Serum Alcohol (0-0.07) % Assessment and Plan - Patient Problems (1) Bilateral pneumonia Current Visit: Yes Status: Acute Plan to address problem: Patient placed on empiric IV antibiotics. We will also rule out COVID-19. Consult placed to infectious disease for evaluation. Will await COVID-19 testing. We will also keep O2 saturation greater or equal to 94%. (2) DVT prophylaxis Current Visit: Yes Status: Acute Plan to address problem: Patient placed on subcutaneous heparin. (3) Full code status Current Visit: Yes Status: Acute Plan to address problem: Patient is a full code.
[2020-11-05] MEDS ORDERED: LORazepam 2 MG/ML VIAL IV PRN ×3 (03:05→04:24)
[2020-11-05] MEDS ORDERED: FUROSEMIDE 40 MG/4 ML INJ IV ONE (03:05)
[2020-11-05 03:47] LABS: Bilirubin,Urine NEG (Negative); Blood,Urine SM (Negative); Color,Urine Yellow (Yellow); Mucus,Urine FEW /HPF; Urobilinogen,Urine < 2.0 mg/dL (<2.0)
[2020-11-05] MEDS: LORazepam 2 MG/ML VIAL IV PRN ×3 (03:50→05:10)
[2020-11-05 03:54] LABS: Amphetamine Screen,Urine Negative; Benzodiazepines Screen,Urine Negative; Cannabinoid Screen,Urine Negative; Cocaine Screen,Urine Negative; Methadone Screen,Urine Negative; Opiate Screen,Urine Negative
--- NOTE | 2020-11-05 04:11 | XRay Report ---
CHEST 1 VIEW INDICATION / CLINICAL INFORMATION: sob. COMPARISON: Chest radiograph one day prior FINDINGS: SUPPORT DEVICES: None. HEART / MEDIASTINUM: No significant abnormality. LUNGS / PLEURA: Moderate patchy bilateral airspace opacities have slightly worsened compared with jaleel or examination. No pleural effusion. No pneumothorax. ADDITIONAL FINDINGS: No significant additional findings. IMPRESSION: 1. Interval worsening of moderate patchy bilateral airspace opacities. Signer Name: Karen Tellez MD Signed: 11/05/2020 4:07 AM Workstation Name: [email or web address]
[2020-11-05] MEDS ORDERED: ETOMIDATE 20 MG/10 ML INJ IV ONE (04:22)
[2020-11-05] MEDS ORDERED: ROCURONIUM 50 MG/5 ML INJ IV ONE (04:23)
[2020-11-05] MEDS ORDERED: LIP THERAPY VASELINE TP PRN (04:24)
[2020-11-05] MEDS ORDERED: MINERAL OIL/PETROLATUM, WHITE OPHTH OINT 3.5 GM OU PRN (04:24)
--- NOTE | 2020-11-05 04:47 | Procedure Note ---
Date of procedure: 11/05/20 Pre-op diagnosis: Respiratory failure Post-op diagnosis: same Procedure: Patient is a 30-year-old admitted patient. The patient is having increased work of breathing as well as hypoxia and respiratory failure. The hospitalist service has asked that I intubate the patient. See procedure note below. Endotracheal Intubation: Indication: Respiratory Distress, respiratory failure A time-out was completed verifying correct patient, procedure, site, p ositioning, and special equipment if applicable. The patient was placed in a flat position. Sedation was obtained using Etomidate 20mg and 50 mg rocuronium. The patient was easily ventilated using an ambu bag. The [employer] was used and inserted into the oropharynx at which time there was a Grade 1 view of the vocal cords. A 7.5-spanish endotracheal tube was inserted and visualized going through the vocal cords. The stylette was removed. Colorimetric change was visualized on the capnography. Breath sounds were heard in both lung angel equally. No sounds over the epigastric area. The endotracheal tube was placed at 24 cm, measured at the teeth. A chest x-ray was ordered to assess for pneumothorax and verify endotrachealtube placement. Estimated Blood Loss: none The patient tolerated the procedure well and there were no complications. Care will be transferred back to the primary team.
[2020-11-05] MEDS ORDERED: dilTIAZem 25 MG/5 ML INJ ONE (04:49)
[2020-11-05] MEDS ORDERED: dilTIAZem 25 MG/5 ML INJ IV ONE (04:50)
[2020-11-05] MEDS ORDERED: METOPROLOL TARTRATE 5 MG/5 ML INJ IV ONE ×2 (04:54→04:55)
[2020-11-05] MEDS ORDERED: LORazepam 100 MG in SODIUM CHLORIDE 0.9% 50 ML, EMPTY BAG 0 ML IV SCH (05:00)
[2020-11-05] MEDS ORDERED: dilTIAZem/D5W 100 MG/100 ML BAG IV SCH (05:00)
--- NOTE | 2020-11-05 05:23 | XRay Report ---
CHEST 1 VIEW INDICATION / CLINICAL INFORMATION: Line placement. COMPARISON: Chest radiograph earlier same day FINDINGS: SUPPORT DEVICES: Interval placement of an endotracheal tube with tip terminating approximately 5 cm a shira the level of the rigo. Interval placement of an enteric tube which is looping within the stoma ch but the tip appears to be directed towards the gastroesophageal junction/lower esophagus. HEART / MEDIASTINUM: No significant abnormality. LUNGS / PLEURA: Moderate patchy bilateral airspace opacities are not significant changed. No pneumoth orax. ADDITIONAL FINDINGS: No significant additional findings. IMPRESSION: 1. Interval placement of endotracheal tube which is appropriately positioned. 2. Interval placement of an enteric tube which is looping in the stomach with the tip directed toward s the gastroesophageal junction/lower esophagus. Recommend retraction of the tube by approximately 8 to 10 cm in order to redirect the tip of the tube. Signer Name: Karen Tellez MD Signed: 11/05/2020 5:19 AM Workstation Name: [email or web address]
[2020-11-05] MEDS ORDERED: fentaNYL 100 MCG/2 ML INJ IV PRN (06:04)
--- NOTE | 2020-11-05 06:08 | Event Note ---
Date: 11/05/20 30-year-old -[place] male admitted with pneumonia rule out COVID-19. During the course of his ER stay patient went into SVT. He was given IV Lopressor and subsequently started on Cardizem drip. Patient went into respiratory failure and subsequently was intubated by the ER physician. Vent settings and sedation done by the ER physician. We will place consult to animal husbandry manager for further evaluation and management.
[2020-11-05 06:20] LABS: ABG Base Excess -4.4 mmol/L (-2.0-3.0); ABG HCO3 20.5 mmol/L (20.0-26.0); ABG Methemoglobin 0.6 % (0.0-1.5); ABG Oxygen Saturation 99.2 % (95.0-99.0); ABG PCO2 37.2 mm Hg; ABG PH 7.359 pH Units (7.350-7.450); ABG PO2 202.8 mm Hg (80.0-90.0)
[2020-11-05] MEDS: fentaNYL DRIP Premix 2,000 MCG/100 ML BAG IV SCH ×4 (06:20→20:04)
[2020-11-05] MEDS: cefTRIAXone/NS 2 GM/100 ML 2 GM/100 ML BAG IV SCH (07:34)
[2020-11-05] MEDS: AZITHROMYCIN/NS 500 MG/250 ML 500 MG/250 ML BAG IV SCH (07:34)
[2020-11-05] MEDS: HEPARIN 5,000 UNIT/1 ML VIAL SUB-Q SCH ×3 (07:35→21:48)
[2020-11-05 09:21] LABS: BUN/Creatinine Ratio 15; Blood Urea Nitrogen 12 mg/dL (9-20); Hemolysis Index 53
[2020-11-05] MEDS ORDERED: MAGNESIUM SULFATE 4 GM/100 ML BAG IV ONE (10:00)
[2020-11-05] MEDS ORDERED: dexAMETHasone 4 MG/ML VIAL IV SCH (10:00)
--- NOTE | 2020-11-05 10:26 | XRay Report ---
ABDOMEN 1 VIEW 11/05/2020 10:02 AM INDICATION / CLINICAL INFORMATION: NGT placement. COMPARISON: None available. FINDINGS: TUBES / LINES: Tip of the nasogastric tube is in the gastric fundus. BOWEL GAS PATTERN: No significant abnormality. FREE AIR / EXTRALUMINAL GAS: None. ADDITIONAL FINDINGS: The liver appears to be enlarged. IMPRESSION: 1. Esophagogastric tube in expected position. 2. The liver appears to be enlarged. Signer Name: Go Waller MD Signed: 11/05/2020 10:22 AM Workstation Name: [id number]
[2020-11-05] MEDS: FAMOTIDINE 20 MG/2 ML INJ IV SCH ×2 (10:57→21:18)
[2020-11-05] MEDS: FOLIC ACID 1 MG TAB PO SCH (10:57)
[2020-11-05] MEDS: THIAMINE 100 MG TAB PO SCH (10:57)
--- NOTE | 2020-11-05 11:12 | Consultation ---
History of Present Illness Consult date: 11/05/20 Consult reason: other (SVT) History of present illness: The patient is a 30-year old M who presents with palpitation, shortness of breath, cough, and hypoxemia. Chest x-ray reports bilateral infiltrates. Chest CTA is negative for pulmonary embolism. Currently he is intubated, unresponsive, on the ventilator, undergoing further evaluation for suspected cornavirus infection. A cardiology consultation has been requested for reported SVT. There are no strips available for cardiac review to confirm SVT. An ECG done is sinus tachycardia with repolarization abnormalities. Heart rate 124. He has a reported history of hypertension. There is no prior cardiac history. Past History Past Surgical History: Other (Right wrist surgery) Social history: alcohol abuse Family history: no significant family history Medications and Allergies Allergies Allergy/AdvReac Type Severity Reaction Status Date / Time Fish Containing Products Allergy Swelling Verified 11/04/20 13:46 Home Medications Medication Instructions Recorded Confirmed Last Taken Type Folic Acid [Folvite] 1 mg PO DAILY #30 tablet 04/29/19 Unknown Rx Thiamine [Vitamin B-1] 100 mg PO QDAY #30 tablet 04/29/19 Unknown Rx cloNIDine-TTS PATCH [Catapres-Tts 0.3 mg TD QWEEK #4 patch 04/29/19 Unknown Rx 0.3mg Patch] hydroCHLOROthiazide [HCTZ] 25 mg PO QDAY #30 tablet 04/29/19 Unknown Rx labetaloL [Labetalol 200mg TAB] 200 mg PO BID #60 tablet 04/29/19 Unknown Rx Active Meds: Active Medications Acetaminophen (Acetaminophen 325 Mg Tab) 650 mg PO Q4H PRN PRN Reason: Pain MILD(1-3)/Fever >100.5/GUILLAUME Famotidine (Famotidine 20 Mg/2 Ml Inj) 20 mg IV BID [facility] Last Admin: 11/05/20 10:57 Dose: 20 mg Documented by: Fentanyl (Fentanyl 100 Mcg/2 Ml Inj) 50 mcg IV Q10MIN PRN PRN Reason: ANALGESIA Folic Acid (Folic Acid 1 Mg Tab) 1 mg PO DAILY [facility] Last Admin: 11/05/20 10:57 Dose: 1 mg Documented by: Heparin Sodium (Porcine) (Heparin 5,000 Unit/1 Ml Vial) 5,000 unit SUB-Q Q8HR [facility] Last Admin: 11/05/20 07:35 Dose: Not Given Documented by: Hydrophilic Ointment (Lip Therapy Vaseline) 1 applic TP Q2HR PRN PRN Reason: Dry Lips Ceftriaxone Sodium (Rocephin/Ns 2 Gm/100 Ml) 2 gm in 100 mls @ 200 mls/hr IV Q24H DEVI; Protocol Last Admin: 11/05/20 07:34 Dose: Not Given Documented by: Azithromycin (Zithromax/Ns) 500 mg in 250 mls @ 250 mls/hr IV Q24H DEVI; Protocol Last Admin: 11/05/20 07:34 Dose: Not Given Documented by: Lorazepam 100 mg/ Sodium Chloride/ Miscellaneous Information 100 mls @ 1 mls/hr IV TITR DEVI; Protocol Last Titration: 11/05/20 07:00 Dose: 0 mg/hr, 0 mls/hr Documented by: Diltiazem HCl (Cardizem/D5w 100mg/100ml) 100 mg in 100 mls @ 5 mls/hr IV TITR DEVI; Protocol Last Titration: 11/05/20 06:30 Dose: 0 mg/hr, 0 mls/hr Documented by: Propofol (Diprivan 10 Mg/Ml) 1,000 mg in 100 mls @ 2.648 mls/hr IV TITR DEVI; Protocol Last Admin: 11/05/20 08:57 Dose: 35 mcg/kg/min, 18.536 mls/hr Documented by: Fentanyl Citrate (Fentanyl Drip Premix) 2,000 mcg in 100 mls @ 4.413 mls/hr IV TITR DEVI; Protocol Last Titration: 11/05/20 08:50 Dose: 4 mcg/kg/hr, 17.654 mls/hr Documented by: Magnesium Sulfate (Magnesium Sulfate 4gm/100ml) 4 gm in 100 mls @ 25 mls/hr IV ONCE ONE Stop: 11/05/20 13:59 Last Admin: 11/05/20 10:57 Dose: 25 mls/hr Documented by: Dexmedetomidine HCl 400 mcg/ (Sodium Chloride) 104 mls @ 4.59 mls/hr IV TITRATE DEVI; Protocol Lorazepam (Lorazepam 2 Mg/Ml Vial) 2 mg IV Q1HR PRN PRN Reason: CIWA-Ar 8-15 Last Admin: 11/05/20 03:20 Dose: 2 mg Documented by: Lorazepam (Lorazepam 2 Mg/Ml Vial) 4 mg IV Q1HR PRN PRN Reason: CIWA-Ar 16-25 Lorazepam (Lorazepam 2 Mg/Ml Vial) 4 mg IV Q15MIN PRN PRN Reason: CIWA-Ar >25 Last Admin: 11/05/20 05:10 Dose: 4 mg Documented by: Lorazepam (Lorazepam 2 Mg/Ml Vial) 2 mg IV Q10MIN PRN PRN Reason: Agitation Magnesium Hydroxide (Magnesium Hydroxide (Mom) Oral Liqd Udc) 30 ml PO Q4H PRN PRN Reason: Constipation Morphine Sulfate (Morphine 2 Mg/1 Ml Inj) 2 mg IV Q4H PRN PRN Reason: Pain, Moderate (4-6) Multi-Ingred Cream/Lotion/Oil/Oint (Mineral Oil/Petrolatum, White Ophth Oint 3.5 Gm) 1 applic OU Q4HR PRN PRN Reason: Dry Eye(s) Ondansetron HCl (Ondansetron 4 Mg/2 Ml Inj) 4 mg IV Q8H PRN PRN Reason: Nausea And Vomiting Sodium Chloride (Sodium Chloride 0.9% 10 Ml Flush Syringe) 10 ml IV BID [facility] Last Admin: 11/05/20 10:57 Dose: 10 ml Documented by: Sodium Chloride (Sodium Chloride 0.9% 10 Ml Flush Syringe) 10 ml IV PRN PRN PRN Reason: LINE FLUSH Thiamine HCl (Thiamine 100 Mg Tab) 100 mg PO QDAY [facility] Last Admin: 11/05/20 10:57 Dose: 100 mg Documented by: Review of Systems ROS unobtainable: due to endotracheal tube Physical Examination Vital Signs Temp Pulse Resp BP Pulse Ox 98.7 F 125 H 26 H 125/86 95 11/04/20 13:50 11/04/20 13:50 11/04/20 13:50 11/04/20 13:50 11/04/20 13:50 General appearance: other (intubated on the vent) Cardiac: Positive: Tachycardia Results 11/04/20 15:40 11/05/20 08:49 Cardiac Enzymes 11/04/20 11/04/20 Range/Units 15:40 Unknown AST 213 H (5-40) units/L Lactate Dehydrogenase 365 H (91-180) units/L Coagulation 11/04/20 Range/Units 15:40 PT 14.3 (12.2-14.9) Sec. INR 1.13 (0.87-1.13) APTT 32.6 (24.2-36.6) Sec. CBC 11/04/20 Range/Units 15:40 WBC 10.4 (4.5-11.0) K/mm3 RBC 4.63 (3.65-5.03) M/mm3 Hgb 13.8 (11.8-15.2) gm/dl Hct 41.1 (35.5-45.6) % Plt Count 149 (140-440) K/mm3 Lymph # (Auto) 1.6 (1.2-5.4) K/mm3 [place] # (Auto) 0.9 H (0.0-0.8) K/mm3 Eos # (Auto) 0.0 (0.0-0.4) K/mm3 Baso # (Auto) 0.1 (0.0-0.1) K/mm3 Comprehensive Metabolic Panel 11/04/20 11/04/20 11/05/20 Range/Units 15:40 Unknown 08:49 Sodium 139 136 L (137-145) mmol/L Potassium 3.8 4.3 (3.6-5.0) mmol/L Chloride 101.8 99.1 (98-107) mmol/L Carbon Dioxide 22 23 (22-30) mmol/L BUN 13 12 (9-20) mg/dL Creatinine 0.6 L 0.8 (0.8-1.3) mg/dL Glucose 98 92 100 (75-100) mg/dL Calcium 8.5 8.0 L (8.4-10.2) mg/dL AST 213 H (5-40) units/L ALT 107 H (7-56) units/L Alkaline Phosphatase 184 H (35-129) units/L Total Protein 7.7 (6.3-8.2) g/dL Albumin 3.9 (3.9-5) g/dL Assessment and Plan - Patient Problems (1) Bilateral pneumonia Current Visit: Yes Status: Acute
--- NOTE | 2020-11-05 11:17 | Consultation ---
History of Present Illness Consult date: 11/05/20 Reason for consult: other (Acute Respiratory Failure) History of present illness: 30 y/o male with prior admission for similar presentation presented to ED with vomiting blood and chest pain. Past History Past Medical History: No medical history Past Surgical History: Other (Right wrist surgery) Social history: alcohol abuse Family history: no significant family history Medications and Allergies Allergies Allergy/AdvReac Type Severity Reaction Status Date / Time Fish Containing Products Allergy Swelling Verified 11/04/20 13:46 Home Medications Medication Instructions Recorded Confirmed Last Taken Type Folic Acid [Folvite] 1 mg PO DAILY #30 tablet 04/29/19 11/05/20 Unknown Rx Thiamine [Vitamin B-1] 100 mg PO QDAY #30 tablet 04/29/19 11/05/20 Unknown Rx cloNIDine-TTS PATCH [Catapres-Tts 0.3 mg TD QWEEK #4 patch 04/29/19 11/05/20 Unknown Rx 0.3mg Patch] hydroCHLOROthiazide [HCTZ] 25 mg PO QDAY #30 tablet 04/29/19 11/05/20 Unknown Rx labetaloL [Labetalol 200mg TAB] 200 mg PO BID #60 tablet 04/29/19 11/05/20 Unknown Rx amLODIPine [Norvasc] 5 mg PO DAILY 11/05/20 11/05/20 Unknown History Active Meds: Active Medications Acetaminophen (Acetaminophen 325 Mg Tab) 650 mg PO Q4H PRN PRN Reason: Pain MILD(1-3)/Fever >100.5/GUILLAUME Famotidine (Famotidine 20 Mg/2 Ml Inj) 20 mg IV BID [facility] Last Admin: 11/05/20 10:57 Dose: 20 mg Documented by: Fentanyl (Fentanyl 100 Mcg/2 Ml Inj) 50 mcg IV Q10MIN PRN PRN Reason: ANALGESIA Folic Acid (Folic Acid 1 Mg Tab) 1 mg PO DAILY [facility] Last Admin: 11/05/20 10:57 Dose: 1 mg Documented by: Heparin Sodium (Porcine) (Heparin 5,000 Unit/1 Ml Vial) 5,000 unit SUB-Q Q8HR [facility] Last Admin: 11/05/20 07:35 Dose: Not Given Documented by: Hydrophilic Ointment (Lip Therapy Vaseline) 1 applic TP Q2HR PRN PRN Reason: Dry Lips Ceftriaxone Sodium (Rocephin/Ns 2 Gm/100 Ml) 2 gm in 100 mls @ 200 mls/hr IV Q24H [facility]; Protocol Last Admin: 11/05/20 07:34 Dose: Not Given Documented by: Azithromycin (Zithromax/Ns) 500 mg in 250 mls @ 250 mls/hr IV Q24H [facility]; Protocol Last Admin: 11/05/20 07:34 Dose: Not Given Documented by: Lorazepam 100 mg/ Sodium Chloride/ Miscellaneous Information 100 mls @ 1 mls/hr IV TITR [facility]; Protocol Last Titration: 11/05/20 11:06 Dose: 0 mg/hr, 0 mls/hr Documented by: Diltiazem HCl (Cardizem/D5w 100mg/100ml) 100 mg in 100 mls @ 5 mls/hr IV TITR [facility]; Protocol Last Titration: 11/05/20 06:30 Dose: 0 mg/hr, 0 mls/hr Documented by: Propofol (Diprivan 10 Mg/Ml) 1,000 mg in 100 mls @ 2.648 mls/hr IV TITR [facility]; Protocol Last Admin: 11/05/20 08:57 Dose: 35 mcg/kg/min, 18.536 mls/hr Documented by: Fentanyl Citrate (Fentanyl Drip Premix) 2,000 mcg in 100 mls @ 4.413 mls/hr IV TITR [facility]; Protocol Last Titration: 11/05/20 08:50 Dose: 4 mcg/kg/hr, 17.654 mls/hr Documented by: Magnesium Sulfate (Magnesium Sulfate 4gm/100ml) 4 gm in 100 mls @ 25 mls/hr IV ONCE ONE Stop: 11/05/20 13:59 Last Admin: 11/05/20 10:57 Dose: 25 mls/hr Documented by: Dexmedetomidine HCl 400 mcg/ (Sodium Chloride) 104 mls @ 4.59 mls/hr IV TITRATE [facility]; Protocol Lorazepam (Lorazepam 2 Mg/Ml Vial) 2 mg IV Q1HR PRN PRN Reason: CIWA-Ar 8-15 Last Admin: 11/05/20 03:20 Dose: 2 mg Documented by: Lorazepam (Lorazepam 2 Mg/Ml Vial) 4 mg IV Q1HR PRN PRN Reason: CIWA-Ar 16-25 Lorazepam (Lorazepam 2 Mg/Ml Vial) 4 mg IV Q15MIN PRN PRN Reason: CIWA-Ar >25 Last Admin: 11/05/20 05:10 Dose: 4 mg Documented by: Lorazepam (Lorazepam 2 Mg/Ml Vial) 2 mg IV Q10MIN PRN PRN Reason: Agitation Magnesium Hydroxide (Magnesium Hydroxide (Mom) Oral Liqd Udc) 30 ml PO Q4H PRN PRN Reason: Constipation Morphine Sulfate (Morphine 2 Mg/1 Ml Inj) 2 mg IV Q4H PRN PRN Reason: Pain, Moderate (4-6) Multi-Ingred Cream/Lotion/Oil/Oint (Mineral Oil/Petrolatum, White Ophth Oint 3.5 Gm) 1 applic OU Q4HR PRN PRN Reason: Dry Eye(s) Ondansetron HCl (Ondansetron 4 Mg/2 Ml Inj) 4 mg IV Q8H PRN PRN Reason: Nausea And Vomiting Sodium Chloride (Sodium Chloride 0.9% 10 Ml Flush Syringe) 10 ml IV BID [facility] Last Admin: 11/05/20 10:57 Dose: 10 ml Documented by: Sodium Chloride (Sodium Chloride 0.9% 10 Ml Flush Syringe) 10 ml IV PRN PRN PRN Reason: LINE FLUSH Thiamine HCl (Thiamine 100 Mg Tab) 100 mg PO QDAY [facility] Last Admin: 11/05/20 10:57 Dose: 100 mg Documented by: Physical Examination Vital signs: Vital Signs Temp Pulse Resp BP Pulse Ox 98.7 F 125 H 26 H 125/86 95 11/04/20 13:50 11/04/20 13:50 11/04/20 13:50 11/04/20 13:50 11/04/20 13:50 Results - Laboratory Findings CBC and BMP: 11/06/20 06:45 11/06/20 06:45 ABG ABG pH 7.359 pH Units (7.350-7.450) 11/05/20 06:10 ABG pCO2 37.2 mm Hg 11/05/20 06:10 ABG pO2 202.8 mm Hg (80.0-90.0) H 11/05/20 06:10 ABG O2 Saturation 99.2 % (95.0-99.0) H 11/05/20 06:10 PT/INR, D-dimer PT 14.3 Sec. (12.2-14.9) 11/04/20 15:40 INR 1.13 (0.87-1.13) 11/04/20 15:40 D-Dimer 183.56 ng/mlDDU (0-234) 11/04/20 20:53 Abnormal lab findings: Abnormal Labs 11/04/20 11/04/20 11/04/20 15:40 15:40 15:40 RDW 17.9 H [place] % (Auto) 8.4 H [place] # (Auto) 0.9 H Seg Neutrophils % 75.5 H Seg Neutrophils # 7.9 H ABG pO2 ABG O2 Saturation ABG Base Excess Sodium Creatinine 0.6 L Lactic Acid Calcium Magnesium Ferritin AST 213 H ALT 107 H Alkaline Phosphatase 184 H Lactate Dehydrogenase Free T4 Ur Specific [place] Plasma/Serum Alcohol 0.29 H 11/04/20 11/04/20 11/04/20 20:53 21:44 23:23 RDW [place] % (Auto) [place] # (Auto) Seg Neutrophils % Seg Neutrophils # ABG pO2 ABG O2 Saturation ABG Base Excess Sodium Creatinine Lactic Acid 2.60 H* 2.90 H* Calcium Magnesium Ferritin AST ALT Alkaline Phosphatase Lactate Dehydrogenase Free T4 0.74 L Ur Specific [place] Plasma/Serum Alcohol 11/04/20 11/04/20 11/05/20 Unknown Unknown 06:10 RDW [place] % (Auto) [place] # (Auto) Seg Neutrophils % Seg Neutrophils # ABG pO2 202.8 H ABG O2 Saturation 99.2 H ABG Base Excess -4.4 L Sodium Creatinine Lactic Acid Calcium Magnesium Ferritin 9.4 L AST ALT Alkaline Phosphatase Lactate Dehydrogenase 365 H Free T4 Ur Specific [place] Plasma/Serum Alcohol 11/05/20 11/05/20 08:49 Unknown RDW [place] % (Auto) [place] # (Auto) Seg Neutrophils % Seg Neutrophils # ABG pO2 ABG O2 Saturation ABG Base Excess Sodium 136 L Creatinine Lactic Acid Calcium 8.0 L Magnesium 1.50 L Ferritin AST ALT Alkaline Phosphatase Lactate Dehydrogenase Free T4 Ur Specific [place] 1.038 H Plasma/Serum Alcohol Assessment and Plan 1. Obtain Echo 2. Precedex to help with sedation and wean Diprovan and Fent to a RASS of 0 3. Feed Patient 4. Consult nutrition.
--- NOTE | 2020-11-05 11:57 | Consultation ---
History of Present Illness - Reason for Consult Consult date: 11/05/20 pneumonia Requesting physician: SHAKEEL BLACK - History of Present Illness The patient is a 30-year-old male who presented to the emergency room yesterday with complaints of chest pain, hemoptysis and shortness of breath. He was later intubated in the ER due to respiratory distress. Infectious diseases was consulted for additional evaluation. He has been afebrile, labs without any leukocytosis. COVID-19 test is pending. LDH 375, ferritin 278, CRP 0.8, procalcitonin 0.22, D-dimer 183 Review of Systems: reviewed in the chart, unable to obtain, minimize risk of transmission Past History Past Medical History: No medical history Past Surgical History: Other (Right wrist surgery) Social history: alcohol abuse Family history: no significant family history Medications and Allergies Allergies Allergy/AdvReac Type Severity Reaction Status Date / Time Fish Containing Products Allergy Swelling Verified 11/04/20 13:46 Home Medications Medication Instructions Recorded Confirmed Last Taken Type Folic Acid [Folvite] 1 mg PO DAILY #30 tablet 04/29/19 Unknown Rx Thiamine [Vitamin B-1] 100 mg PO QDAY #30 tablet 04/29/19 Unknown Rx cloNIDine-TTS PATCH [Catapres-Tts 0.3 mg TD QWEEK #4 patch 04/29/19 Unknown Rx 0.3mg Patch] hydroCHLOROthiazide [HCTZ] 25 mg PO QDAY #30 tablet 04/29/19 Unknown Rx labetaloL [Labetalol 200mg TAB] 200 mg PO BID #60 tablet 04/29/19 Unknown Rx Active Meds: Active Medications Acetaminophen (Acetaminophen 325 Mg Tab) 650 mg PO Q4H PRN PRN Reason: Pain MILD(1-3)/Fever >100.5/GUILLAUME Famotidine (Famotidine 20 Mg/2 Ml Inj) 20 mg IV BID [facility] Last Admin: 11/05/20 10:57 Dose: 20 mg Documented by: Fentanyl (Fentanyl 100 Mcg/2 Ml Inj) 50 mcg IV Q10MIN PRN PRN Reason: ANALGESIA Folic Acid (Folic Acid 1 Mg Tab) 1 mg PO DAILY [facility] Last Admin: 11/05/20 10:57 Dose: 1 mg Documented by: Heparin Sodium (Porcine) (Heparin 5,000 Unit/1 Ml Vial) 5,000 unit SUB-Q Q8HR [facility] Last Admin: 11/05/20 07:35 Dose: Not Given Documented by: Hydrophilic Ointment (Lip Therapy Vaseline) 1 applic TP Q2HR PRN PRN Reason: Dry Lips Ceftriaxone Sodium (Rocephin/Ns 2 Gm/100 Ml) 2 gm in 100 mls @ 200 mls/hr IV Q24H [facility]; Protocol Last Admin: 11/05/20 07:34 Dose: Not Given Documented by: Azithromycin (Zithromax/Ns) 500 mg in 250 mls @ 250 mls/hr IV Q24H [facility]; Protocol Last Admin: 11/05/20 07:34 Dose: Not Given Documented by: Lorazepam 100 mg/ Sodium Chloride/ Miscellaneous Information 100 mls @ 1 mls/hr IV TITR [facility]; Protocol Last Titration: 11/05/20 11:06 Dose: 0 mg/hr, 0 mls/hr Documented by: Propofol (Diprivan 10 Mg/Ml) 1,000 mg in 100 mls @ 2.648 mls/hr IV TITR [facility]; Protocol Last Admin: 11/05/20 08:57 Dose: 35 mcg/kg/min, 18.536 mls/hr Documented by: Fentanyl Citrate (Fentanyl Drip Premix) 2,000 mcg in 100 mls @ 4.413 mls/hr IV TITR [facility]; Protocol Last Admin: 11/05/20 11:16 Dose: 4 mcg/kg/hr, 17.654 mls/hr Documented by: Magnesium Sulfate (Magnesium Sulfate 4gm/100ml) 4 gm in 100 mls @ 25 mls/hr IV ONCE ONE Stop: 11/05/20 13:59 Last Admin: 11/05/20 10:57 Dose: 25 mls/hr Documented by: Dexmedetomidine HCl 400 mcg/ (Sodium Chloride) 104 mls @ 4.59 mls/hr IV TITRATE [facility]VI; Protocol Last Admin: 11/05/20 11:16 Dose: 0.2 mcg/kg/hr, 4.59 mls/hr Documented by: Lorazepam (Lorazepam 2 Mg/Ml Vial) 2 mg IV Q1HR PRN PRN Reason: CIWA-Ar 8-15 Last Admin: 11/05/20 03:20 Dose: 2 mg Documented by: Lorazepam (Lorazepam 2 Mg/Ml Vial) 4 mg IV Q1HR PRN PRN Reason: CIWA-Ar 16-25 Lorazepam (Lorazepam 2 Mg/Ml Vial) 4 mg IV Q15MIN PRN PRN Reason: CIWA-Ar >25 Last Admin: 11/05/20 05:10 Dose: 4 mg Documented by: Lorazepam (Lorazepam 2 Mg/Ml Vial) 2 mg IV Q10MIN PRN PRN Reason: Agitation Magnesium Hydroxide (Magnesium Hydroxide (Mom) Oral Liqd Udc) 30 ml PO Q4H PRN PRN Reason: Constipation Metoprolol Tartrate (Metoprolol Tartrate 5 Mg/5 Ml Inj) 2.5 mg IV Q4HR [facility] Morphine Sulfate (Morphine 2 Mg/1 Ml Inj) 2 mg IV Q4H PRN PRN Reason: Pain, Moderate (4-6) Multi-Ingred Cream/Lotion/Oil/Oint (Mineral Oil/Petrolatum, White Ophth Oint 3.5 Gm) 1 applic OU Q4HR PRN PRN Reason: Dry Eye(s) Ondansetron HCl (Ondansetron 4 Mg/2 Ml Inj) 4 mg IV Q8H PRN PRN Reason: Nausea And Vomiting Sodium Chloride (Sodium Chloride 0.9% 10 Ml Flush Syringe) 10 ml IV BID [facility] Last Admin: 11/05/20 10:57 Dose: 10 ml Documented by: Sodium Chloride (Sodium Chloride 0.9% 10 Ml Flush Syringe) 10 ml IV PRN PRN PRN Reason: LINE FLUSH Thiamine HCl (Thiamine 100 Mg Tab) 100 mg PO QDAY [facility] Last Admin: 11/05/20 10:57 Dose: 100 mg Documented by: Physical Examination - Physical Exam Narrative exam: Physical Exam (reviewed in chart to minimize risk of transmission) Constitutional: deferred Head, Ears, Nose: deferred Eyes: deferred Neck: deferred Oral: deferred Cardiovascular: deferred Respiratory: deferred GI: deferred Musculoskeletal: deferred Skin: deferred Hem/Lymphatic: deferred Psych: deferred Neurological: deferred - Constitutional Vitals: Vital Signs Temp Pulse Resp BP Pulse Ox 98.9 F 114 H 30 H 117/73 97 11/05/20 08:00 11/05/20 08:40 11/05/20 08:40 11/05/20 08:40 11/05/20 08:40 Temperature -Last 24 Hours Temperature 98.9 F Temperature 98.7 F Results - Labs CBC & Chem 7: 11/04/20 15:40 11/05/20 08:49 Labs: Abnormal lab results 11/04/20 11/04/20 11/04/20 Range/Units 15:40 15:40 15:40 RDW 17.9 H (13.2-15.2) % [place] % (Auto) 8.4 H (0.0-7.3) % [place] # (Auto) 0.9 H (0.0-0.8) K/mm3 Seg Neutrophils % 75.5 H (40.0-70.0) % Seg Neutrophils # 7.9 H (1.8-7.7) K/mm3 ABG pO2 (80.0-90.0) mm Hg ABG O2 Saturation (95.0-99.0) % ABG Base Excess (-2.0-3.0) mmol/L Sodium (137-145) mmol/L Creatinine 0.6 L (0.8-1.3) mg/dL Lactic Acid (0.7-2.0) mmol/L Calcium (8.4-10.2) mg/dL Magnesium (1.7-2.3) mg/dL Ferritin (30.0-300.0) ng/mL AST 213 H (5-40) units/L ALT 107 H (7-56) units/L Alkaline Phosphatase 184 H (35-129) units/L Lactate Dehydrogenase (91-180) units/L Free T4 (0.76-1.46) ng/dL Ur Specific [place] (1.003-1.030) Plasma/Serum Alcohol 0.29 H (0-0.07) % 11/04/20 11/04/20 11/04/20 Range/Units 20:53 21:44 23:23 RDW (13.2-15.2) % [place] % (Auto) (0.0-7.3) % [place] # (Auto) (0.0-0.8) K/mm3 Seg Neutrophils % (40.0-70.0) % Seg Neutrophils # (1.8-7.7) K/mm3 ABG pO2 (80.0-90.0) mm Hg ABG O2 Saturation (95.0-99.0) % ABG Base Excess (-2.0-3.0) mmol/L Sodium (137-145) mmol/L Creatinine (0.8-1.3) mg/dL Lactic Acid 2.60 H* 2.90 H* (0.7-2.0) mmol/L Calcium (8.4-10.2) mg/dL Magnesium (1.7-2.3) mg/dL Ferritin (30.0-300.0) ng/mL AST (5-40) units/L ALT (7-56) units/L Alkaline Phosphatase (35-129) units/L Lactate Dehydrogenase (91-180) units/L Free T4 0.74 L (0.76-1.46) ng/dL Ur Specific [place] (1.003-1.030) Plasma/Serum Alcohol (0-0.07) % 11/04/20 11/04/20 11/05/20 Range/Units Unknown Unknown 06:10 RDW (13.2-15.2) % [place] % (Auto) (0.0-7.3) % [place] # (Auto) (0.0-0.8) K/mm3 Seg Neutrophils % (40.0-70.0) % Seg Neutrophils # (1.8-7.7) K/mm3 ABG pO2 202.8 H (80.0-90.0) mm Hg ABG O2 Saturation 99.2 H (95.0-99.0) % ABG Base Excess -4.4 L (-2.0-3.0) mmol/L Sodium (137-145) mmol/L Creatinine (0.8-1.3) mg/dL Lactic Acid (0.7-2.0) mmol/L Calcium (8.4-10.2) mg/dL Magnesium (1.7-2.3) mg/dL Ferritin 9.4 L (30.0-300.0) ng/mL AST (5-40) units/L ALT (7-56) units/L Alkaline Phosphatase (35-129) units/L Lactate Dehydrogenase 365 H (91-180) units/L Free T4 (0.76-1.46) ng/dL Ur Specific [place] (1.003-1.030) Plasma/Serum Alcohol (0-0.07) % 11/05/20 11/05/20 Range/Units 08:49 Unknown RDW (13.2-15.2) % [place] % (Auto) (0.0-7.3) % [place] # (Auto) (0.0-0.8) K/mm3 Seg Neutrophils % (40.0-70.0) % Seg Neutrophils # (1.8-7.7) K/mm3 ABG pO2 (80.0-90.0) mm Hg ABG O2 Saturation (95.0-99.0) % ABG Base Excess (-2.0-3.0) mmol/L Sodium 136 L (137-145) mmol/L Creatinine (0.8-1.3) mg/dL Lactic Acid (0.7-2.0) mmol/L Calcium 8.0 L (8.4-10.2) mg/dL Magnesium 1.50 L (1.7-2.3) mg/dL Ferritin (30.0-300.0) ng/mL AST (5-40) units/L ALT (7-56) units/L Alkaline Phosphatase (35-129) units/L Lactate Dehydrogenase (91-180) units/L Free T4 (0.76-1.46) ng/dL Ur Specific [place] 1.038 H (1.003-1.030) Plasma/Serum Alcohol (0-0.07) % - Imaging and Cardiology Chest x-ray: report reviewed, image reviewed Assessment and Plan Cultures: SARS CoV2 PCR: Pending 11/04/2020 blood culture: In process A/P: 30-year-old male who presented to the emergency room with complaints of chest pain, hemoptysis and shortness of breath: #Bilateral pneumonia: Rule out COVID-19. Cover for community-acquired pneumonia and possible aspiration. Inflammatory markers, procal are low. CTA with patchy bilateral airspace opacities. #Acute hypoxic respiratory failure: On the vent #?Alcohol intoxication, alcoholic hepatitis: CT revealed hepatic steatosis. Recs: Follow-up COVID-19 PCR Empiric ceftriaxone, azithromycin to cover for aspiration and community-acquired pneumonia Trisha Atkins MD, FACP [facility] ([facility] O: [phone] F: [phone]
[2020-11-05] MEDS: METOPROLOL TARTRATE 5 MG/5 ML INJ IV SCH ×4 (12:40→23:04)
[2020-11-05] MEDS ORDERED: LIPASE 10,500/PROTEASE 25,000/AMYLASE 43,750 (UNITS) DR CAP FEEDTUBE PRN (14:17)
[2020-11-05] MEDS ORDERED: SODIUM BICARBONATE 325 MG TAB FEEDTUBE PRN (14:17)
[2020-11-05] MEDS ORDERED: SIMPLE SYRUP 15 ML FEEDTUBE PRN ×2 (14:17)
--- NOTE | 2020-11-05 15:30 | Event Note ---
Date: 11/05/20 This is a 30-year-old male with EtOH abuse who presented to the emergency department on 11/05 with complaints of palpitations, cough, shortness of breath ssociated with mild chest discomfort for about 2 weeks and over the last few days he has had hemoptysis. Work-up in the emergency department included a CTA chest which showed moderate patchy bilateral airspace opacities worrisome for multifocal pneumonia, hepatic steatosis and no evidence of pulmonary embolism and of note his blood alcohol level was 0.29. Patient was admitted to the hospital service with lactic acidosis, transaminitis, Acute respiratory failure COVID-19 PUI CAP SVT Transaminitis Hypomagnesemia Hepatic steatosis EtOH abuse PE: Constitutional: Sedated on mechanical ventilation no acute distress Neuro: Pupils equal round reactive to light, sedated, responsive to verbal stimuli, moves all extremities spontaneously CV: S1/S2 auscultated, no murmur or gallop appreciated. Peripheral pulses palpable x4 extremities, cap refill less than 3 seconds x 4 extremities Respiratory: Intubated on mechanical ventilation via O ETT. CTA. Regular rate and rhythm GI: Soft, nontender nondistended, active bowel sounds x4 quadrants : Voiding Skin: CDI, warm MS: Moves all extremities x4 -Cardiology, infectious disease, nutrition, CCM consulted, appreciate recommendations -11/05 COVID-19 PCR pending -11/05 echocardiogram pending -IV antibiotics -Mechanical ventilation, VAP bundle, wean as tolerated -Precedex, propofol -IV metoprolol -CIWA protocol -11/05 blood cultures x2 pending -11/05 sputum culture pending DVT/GI prophylaxis: PPI, SCDs to bilateral lower extremities while in bed, heparin subcu Disposition: ICU
--- NOTE | 2020-11-05 18:41 | Electrocardiograph Report ---
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
[2020-11-06] MEDS: fentaNYL DRIP Premix 2,000 MCG/100 ML BAG IV SCH ×3 (01:14→10:34)
[2020-11-06] MEDS: METOPROLOL TARTRATE 5 MG/5 ML INJ IV SCH ×6 (01:23→22:50)
[2020-11-06] MEDS: cefTRIAXone/NS 2 GM/100 ML 2 GM/100 ML BAG IV SCH (02:37)
[2020-11-06] MEDS: AZITHROMYCIN/NS 500 MG/250 ML 500 MG/250 ML BAG IV SCH (02:41)
--- NOTE | 2020-11-06 04:45 | XRay Report ---
CHEST 1 VIEW 11/06/2020 4:10 AM INDICATION / CLINICAL INFORMATION: follow up respiratory failure. COMPARISON: Previous day. FINDINGS: SUPPORT DEVICES: Unchanged. HEART / MEDIASTINUM: Stable. LUNGS / PLEURA: Persistent opacity left greater than right with interval improvement. No pneumothorax or pleural fluid. ADDITIONAL FINDINGS: No significant additional findings. IMPRESSION: Interval improvement with moderate residual. Signer Name: Jam Sanchez MD Signed: 11/06/2020 4:41 AM Workstation Name: [id number]
[2020-11-06] MEDS: HEPARIN 5,000 UNIT/1 ML VIAL SUB-Q SCH ×3 (06:05→22:50)
[2020-11-06 07:21] LABS: Basophils % (Auto) 0.3 % (0.0-1.8); Eosinophils # (Auto) 0.1 K/mm3 (0.0-0.4); Eosinophils % (Auto) 1.4 % (0.0-4.3); Hematocrit 43.5 % (35.5-45.6); Hemoglobin 14.1 gm/dl (11.8-15.2); Lymphocytes # (Auto) 2.4 K/mm3 (1.2-5.4); Lymphocytes % (Auto) 23.5 % (13.4-35.0); Mean Corpuscular HGB Conc 32 % (32-34); Mean Corpuscular Volume 91 fl (84-94); Monocytes # (Auto) 1.4 K/mm3 (0.0-0.8); Monocytes % (Auto) 13.6 % (0.0-7.3); Platelet Count 113 K/mm3 (140-440); Red Blood Count 4.76 M/mm3 (3.65-5.03); Red Cell Distribution Width 17.3 % (13.2-15.2)
[2020-11-06 07:30] LABS: INR 1.02 (0.87-1.13)
[2020-11-06 08:17] LABS: BUN/Creatinine Ratio 14; Blood Urea Nitrogen 11 mg/dL (9-20); Calcium 8.6 mg/dL (8.4-10.2); Hemolysis Index 36
[2020-11-06] MEDS: THIAMINE 100 MG TAB PO SCH (09:25)
[2020-11-06] MEDS: FAMOTIDINE 20 MG/2 ML INJ IV SCH ×2 (09:25→22:50)
[2020-11-06] MEDS: FOLIC ACID 1 MG TAB PO SCH (09:25)
[2020-11-06] MEDS ORDERED: FUROSEMIDE 20 MG/2 ML INJ IV ONE (10:00)
--- NOTE | 2020-11-06 10:59 | Progress Note ---
Assessment and Plan 11/06/20: Started on lasix 20 BID. Attempt to get to euvolemia or as negative as possible as long as BP and renal function will allow. Start to wean off sedation once volume status is more negative and attempt extubation maybe tomorrow. Keep [place] for strict I/O. Guarded prognosis. 1. Obtain Echo 2. Precedex to help with sedation and wean Diprovan and Fent to a RASS of 0 3. Feed Patient 4. Consult nutrition. CCT 31 minutes. Subjective Date of service: 11/06/20 Interval history: Echo shows severe CHF. Unsure of etiology. COVID test is still pending. Alison ins sedated. Labs are stable Objective Vital Signs - 12hr 11/05/20 11/05/20 11/05/20 23:00 23:10 23:20 Pulse Rate 92 H 91 H 92 H Pulse Rate [ From Monitor] Pulse Rate [ Left Dorsalis Pedis] Respiratory 20 20 20 Rate Blood Pressure 128/77 128/77 129/78 O2 Sat by Pulse 99 99 99 Oximetry 11/05/20 11/05/20 11/05/20 23:30 23:40 23:42 Pulse Rate 93 H 93 H 93 H Pulse Rate [ From Monitor] Pulse Rate [ Left Dorsalis Pedis] Respiratory 20 20 20 Rate Blood Pressure 128/62 128/62 128/62 O2 Sat by Pulse 99 99 98 Oximetry 11/05/20 11/06/20 11/06/20 23:50 00:00 00:10 Pulse Rate 92 H 93 H 94 H Pulse Rate [ 90 From Monitor] Pulse Rate [ 90 Left Dorsalis Pedis] Respiratory 20 20 20 Rate Blood Pressure 128/82 129/81 129/81 O2 Sat by Pulse 98 98 98 Oximetry 11/06/20 11/06/20 11/06/20 00:20 00:30 00:36 Pulse Rate 94 H 111 H Pulse Rate [ From Monitor] Pulse Rate [ Left Dorsalis Pedis] Respiratory 20 24 Rate Blood Pressure 130/77 130/78 O2 Sat by Pulse 98 99 94 Oximetry 11/06/20 11/06/20 11/06/20 00:40 00:50 01:00 Pulse Rate 96 H 97 H 97 H Pulse Rate [ From Monitor] Pulse Rate [ Left Dorsalis Pedis] Respiratory 20 20 20 Rate Blood Pressure 130/78 110/77 112/77 O2 Sat by Pulse 94 96 97 Oximetry 11/06/20 11/06/20 11/06/20 01:10 01:20 01:30 Pulse Rate 96 H 95 H 94 H Pulse Rate [ From Monitor] Pulse Rate [ Left Dorsalis Pedis] Respiratory 20 20 20 Rate Blood Pressure 112/77 105/68 O2 Sat by Pulse 97 97 97 Oximetry 11/06/20 11/06/20 11/06/20 01:41 01:51 02:00 Pulse Rate 94 H 93 H 93 H Pulse Rate [ From Monitor] Pulse Rate [ Left Dorsalis Pedis] Respiratory 20 20 20 Rate Blood Pressure 105/68 115/79 128/89 O2 Sat by Pulse 97 98 100 Oximetry 11/06/20 11/06/20 11/06/20 02:11 02:21 02:30 Pulse Rate 94 H 94 H 93 H Pulse Rate [ From Monitor] Pulse Rate [ Left Dorsalis Pedis] Respiratory 20 20 20 Rate Blood Pressure 105/68 114/78 127/90 O2 Sat by Pulse 98 99 99 Oximetry 11/06/20 11/06/20 11/06/20 02:41 02:51 03:00 Pulse Rate 93 H 93 H 93 H Pulse Rate [ From Monitor] Pulse Rate [ Left Dorsalis Pedis] Respiratory 20 20 20 Rate Blood Pressure 127/90 128/90 114/78 O2 Sat by Pulse 99 99 99 Oximetry 11/06/20 11/06/20 11/06/20 03:11 03:21 03:30 Pulse Rate 93 H 94 H 93 H Pulse Rate [ From Monitor] Pulse Rate [ Left Dorsalis Pedis] Respiratory 20 20 17 Rate Blood Pressure 114/78 130/92 108/63 O2 Sat by Pulse 99 99 98 Oximetry 11/06/20 11/06/20 11/06/20 03:41 03:51 04:00 Pulse Rate 94 H 94 H 95 H Pulse Rate [ 90 From Monitor] Pulse Rate [ 90 Left Dorsalis Pedis] Respiratory 20 20 20 Rate Blood Pressure 108/63 102/62 105/66 O2 Sat by Pulse 98 97 97 Oximetry 11/06/20 11/06/20 11/06/20 04:11 04:21 04:30 Pulse Rate 97 H 99 H Pulse Rate [ From Monitor] Pulse Rate [ Left Dorsalis Pedis] Respiratory 21 21 Rate Blood Pressure 105/66 111/75 121/81 O2 Sat by Pulse 96 98 99 Oximetry 11/06/20 11/06/20 11/06/20 04:41 04:51 05:00 Pulse Rate 98 H 98 H 97 H Pulse Rate [ From Monitor] Pulse Rate [ Left Dorsalis Pedis] Respiratory 21 21 20 Rate Blood Pressure 121/81 120/84 119/81 O2 Sat by Pulse 100 99 99 Oximetry 11/06/20 11/06/20 11/06/20 05:11 05:20 05:21 Pulse Rate 97 H 92 H 97 H Pulse Rate [ From Monitor] Pulse Rate [ Left Dorsalis Pedis] Respiratory 20 20 Rate Blood Pressure 119/81 118/80 O2 Sat by Pulse 98 99 99 Oximetry 11/06/20 11/06/20 11/06/20 05:30 05:41 05:51 Pulse Rate 96 H 97 H 96 H Pulse Rate [ From Monitor] Pulse Rate [ Left Dorsalis Pedis] Respiratory 20 20 20 Rate Blood Pressure 121/80 121/80 122/84 O2 Sat by Pulse 98 99 99 Oximetry 11/06/20 11/06/20 11/06/20 06:00 06:11 08:10 Pulse Rate 96 H 97 H 100 H Pulse Rate [ From Monitor] Pulse Rate [ Left Dorsalis Pedis] Respiratory 20 20 Rate Blood Pressure 127/88 127/88 134/92 O2 Sat by Pulse 99 98 100 Oximetry 11/06/20 09:26 Pulse Rate 100 H Pulse Rate [ From Monitor] Pulse Rate [ Left Dorsalis Pedis] Respiratory Rate Blood Pressure 134/92 O2 Sat by Pulse Oximetry CBC and BMP: 11/06/20 06:45 11/06/20 06:45 ABG, PT/INR, D-dimer: ABG ABG pH 7.406 (7.320-7.450) 11/06/20 03:34 POC ABG pCO2 38.1 mmHg (32.0-48.0) 11/06/20 03:34 ABG pCO2 37.2 mm Hg 11/05/20 06:10 POC ABG pO2 88.8 mmHg (83-108) 11/06/20 03:34 ABG pO2 202.8 mm Hg (80.0-90.0) H 11/05/20 06:10 POC ABG HCO3 23.4 11/06/20 03:34 ABG O2 Saturation 97.4 (0-100) 11/06/20 03:34 PT/INR, D-dimer PT 13.2 Sec. (12.2-14.9) 11/06/20 06:45 INR 1.02 (0.87-1.13) 11/06/20 06:45 D-Dimer 175.50 ng/mlDDU (0-234) 11/06/20 06:45 Abnormal lab findings: Abnormal Labs 11/04/20 11/04/20 11/04/20 15:40 15:40 15:40 RDW 17.9 H Plt Count Door % (Auto) 8.4 H Door # (Auto) 0.9 H Seg Neutrophils % 75.5 H Seg Neutrophils # 7.9 H ABG pO2 ABG O2 Saturation ABG Base Excess ABG Sodium ABG Glucose Sodium Creatinine 0.6 L Glucose POC Glucose Lactic Acid Calcium Magnesium Ferritin AST 213 H ALT 107 H Alkaline Phosphatase 184 H Lactate Dehydrogenase C-Reactive Protein Free T4 Arterial Blood Glucose Ur Specific [place] Plasma/Serum Alcohol 0.29 H 11/04/20 11/04/20 11/04/20 20:53 21:44 23:23 RDW Plt Count Door % (Auto) Door # (Auto) Seg Neutrophils % Seg Neutrophils # ABG pO2 ABG O2 Saturation ABG Base Excess ABG Sodium ABG Glucose Sodium Creatinine Glucose POC Glucose Lactic Acid 2.60 H* 2.90 H* Calcium Magnesium Ferritin AST ALT Alkaline Phosphatase Lactate Dehydrogenase C-Reactive Protein Free T4 0.74 L Arterial Blood Glucose Ur Specific [place] Plasma/Serum Alcohol 11/04/20 11/04/20 11/05/20 Unknown Unknown 06:10 RDW Plt Count Door % (Auto) Door # (Auto) Seg Neutrophils % Seg Neutrophils # ABG pO2 202.8 H ABG O2 Saturation 99.2 H ABG Base Excess -4.4 L ABG Sodium ABG Glucose Sodium Creatinine Glucose POC Glucose Lactic Acid Calcium Magnesium Ferritin 9.4 L AST ALT Alkaline Phosphatase Lactate Dehydrogenase 365 H C-Reactive Protein Free T4 Arterial Blood Glucose Ur Specific [place] Plasma/Serum Alcohol 11/05/20 11/05/20 11/05/20 08:49 23:41 Unknown RDW Plt Count Door % (Auto) Door # (Auto) Seg Neutrophils % Seg Neutrophils # ABG pO2 ABG O2 Saturation ABG Base Excess ABG Sodium ABG Glucose Sodium 136 L Creatinine Glucose POC Glucose 122 H Lactic Acid Calcium 8.0 L Magnesium 1.50 L Ferritin AST ALT Alkaline Phosphatase Lactate Dehydrogenase C-Reactive Protein Free T4 Arterial Blood Glucose Ur Specific [place] 1.038 H Plasma/Serum Alcohol 11/06/20 11/06/20 11/06/20 03:34 05:01 06:45 RDW 17.3 H Plt Count 113 L Door % (Auto) 13.6 H Door # (Auto) 1.4 H Seg Neutrophils % Seg Neutrophils # ABG pO2 ABG O2 Saturation ABG Base Excess ABG Sodium 135.5 L ABG Glucose 140 H Sodium Creatinine Glucose POC Glucose 133 H Lactic Acid Calcium Magnesium Ferritin AST ALT Alkaline Phosphatase Lactate Dehydrogenase C-Reactive Protein Free T4 Arterial Blood Glucose 140 H Ur Specific [place] Plasma/Serum Alcohol 11/06/20 11/06/20 11/06/20 06:45 06:45 06:45 RDW Plt Count Door % (Auto) Door # (Auto) Seg Neutrophils % Seg Neutrophils # ABG pO2 ABG O2 Saturation ABG Base Excess ABG Sodium ABG Glucose Sodium Creatinine Glucose 105 H POC Glucose Lactic Acid Calcium Magnesium 2.80 H Ferritin 369.6 H AST ALT Alkaline Phosphatase Lactate Dehydrogenase 298 H C-Reactive Protein 6.00 H Free T4 Arterial Blood Glucose Ur Specific [place] Plasma/Serum Alcohol
--- NOTE | 2020-11-06 11:22 | Progress Note ---
Assessment and Plan Cultures: SARS CoV2 PCR: Pending 11/04/2020 blood culture: no growth 11/05/2020 tracheal aspirate culture: No organisms. Less than 25 WBC/low power field. A/P: 30-year-old male who presented to the emergency room with complaints of chest pain, hemoptysis and shortness of breath: #Bilateral pneumonia v/s CHF: likely latter given low EF, ?dilated cardiomyopathy. Rule out COVID-19. ?community-acquired pneumonia and possible aspiration. Inflammatory markers, procal are low. CTA with patchy bilateral airspace opacities. #Acute hypoxic respiratory failure: On the vent #?Alcohol intoxication, alcoholic hepatitis: CT revealed hepatic steatosis. #Dilated cardiomyopathy: cardiology on board. Recs: -Follow-up COVID-19 PCR -antibiotics discontinued Trisha Atkins MD, FACP [facility] ([facility]) O: [phone] F: [phone] Subjective Date of service: 11/06/20 Interval history: No fever. Remains on the vent. COVID-19 pending. Objective - Exam Narrative Exam: Physical Exam (reviewed in chart to minimize risk of transmission) Constitutional: deferred Head, Ears, Nose: deferred Eyes: deferred Neck: deferred Oral: deferred Cardiovascular: deferred Respiratory: deferred GI: deferred Musculoskeletal: deferred Skin: deferred Hem/Lymphatic: deferred Psych: deferred Neurological: deferred - Constitutional Vitals: Vital Signs Temp Pulse Resp BP Pulse Ox 99.4 F 100 H 20 134/92 100 11/05/20 16:07 11/06/20 09:26 11/06/20 06:11 11/06/20 09:26 11/06/20 08:10 Temperature -Last 24 Hours Temperature 99.4 F Temperature 99.2 F - Labs CBC & Chem 7: 11/06/20 06:45 11/06/20 06:45 Labs: Abnormal lab results 11/05/20 11/06/20 11/06/20 Range/Units 23:41 03:34 05:01 RDW (13.2-15.2) % Plt Count (140-440) K/mm3 [place] % (Auto) (0.0-7.3) % [place] # (Auto) (0.0-0.8) K/mm3 ABG Sodium 135.5 L (136.0-145.0) mmol/L ABG Glucose 140 H (65-95) mg/dL Glucose (75-100) mg/dL POC Glucose 122 H 133 H (70-105) mg/dL Magnesium (1.7-2.3) mg/dL Ferritin (30.0-300.0) ng/mL Lactate Dehydrogenase (91-180) units/L C-Reactive Protein (0.00-1.30) mg/dL Arterial Blood Glucose 140 H (65-95) mg/dL 11/06/20 11/06/20 11/06/20 Range/Units 06:45 06:45 06:45 RDW 17.3 H (13.2-15.2) % Plt Count 113 L (140-440) K/mm3 [place] % (Auto) 13.6 H (0.0-7.3) % [place] # (Auto) 1.4 H (0.0-0.8) K/mm3 ABG Sodium (136.0-145.0) mmol/L ABG Glucose (65-95) mg/dL Glucose 105 H (75-100) mg/dL POC Glucose (70-105) mg/dL Magnesium (1.7-2.3) mg/dL Ferritin 369.6 H (30.0-300.0) ng/mL Lactate Dehydrogenase 298 H (91-180) units/L C-Reactive Protein 6.00 H (0.00-1.30) mg/dL Arterial Blood Glucose (65-95) mg/dL 11/06/20 Range/Units 06:45 RDW (13.2-15.2) % Plt Count (140-440) K/mm3 [place] % (Auto) (0.0-7.3) % [place] # (Auto) (0.0-0.8) K/mm3 ABG Sodium (136.0-145.0) mmol/L ABG Glucose (65-95) mg/dL Glucose (75-100) mg/dL POC Glucose (70-105) mg/dL Magnesium 2.80 H (1.7-2.3) mg/dL Ferritin (30.0-300.0) ng/mL Lactate Dehydrogenase (91-180) units/L C-Reactive Protein (0.00-1.30) mg/dL Arterial Blood Glucose (65-95) mg/dL
[2020-11-06] MEDS ORDERED: HALOPERIDOL LACTATE 5 MG/1 ML INJ ONE (11:34)
[2020-11-06] MEDS ORDERED: HALOPERIDOL LACTATE 5 MG/1 ML INJ IM ONE (11:35)
[2020-11-06] MEDS ORDERED: HALOPERIDOL LACTATE 5 MG/1 ML INJ IV PRN (12:00)
--- NOTE | 2020-11-06 12:16 | Progress Note ---
Assessment and Plan - Patient Problems (1) Dilated cardiomyopathy Current Visit: Yes Status: Acute Plan to address problem: Patient has a dilated cardiomyopathy on the echo, likely of longstanding probably related to his chronic alcohol abuse. We will ultimately introduce guideline directed medical therapy as tolerated. (2) Narrow complex tachycardia Current Visit: Yes Status: Acute Plan to address problem: We are awaiting the strips to determine the morphology of the narrow complex tachycardia described on his presentation to the emergency room. Subjective Date of service: 11/06/20 Interval history: Patient is sedated, on the vent. On air sampling and monitoring, he is in his normal sinus rhythm at 98, blood pressure 130 systolic. Echocardiogram shows a dilated cardiomyopathy with severe left ventricular systolic dysfunction, ejection fraction 15 to 20%. Objective Vital Signs Temp Pulse Pulse Pulse Resp BP Pulse Ox 11/06/20 09:26 100 H 134/92 11/06/20 08:10 100 H 134/92 100 11/06/20 06:11 97 H 20 127/88 98 11/06/20 06:00 96 H 20 127/88 99 11/06/20 05:51 96 H 20 122/84 99 11/06/20 05:41 97 H 20 121/80 99 11/06/20 05:30 96 H 20 121/80 98 11/06/20 05:21 97 H 20 118/80 99 11/06/20 05:20 92 H 99 11/06/20 05:11 97 H 20 119/81 98 11/06/20 05:00 97 H 20 119/81 99 11/06/20 04:51 98 H 21 120/84 99 11/06/20 04:41 98 H 21 121/81 100 11/06/20 04:30 99 H 21 121/81 99 11/06/20 04:21 111/75 98 11/06/20 04:11 97 H 21 105/66 96 11/06/20 04:00 95 H 90 90 20 105/66 97 11/06/20 03:51 94 H 20 102/62 97 11/06/20 03:41 94 H 20 108/63 98 11/06/20 03:30 93 H 17 108/63 98 11/06/20 03:21 94 H 20 130/92 99 11/06/20 03:11 93 H 20 114/78 99 11/06/20 03:00 93 H 20 114/78 99 11/06/20 02:51 93 H 20 128/90 99 11/06/20 02:41 93 H 20 127/90 99 11/06/20 02:30 93 H 20 127/90 99 11/06/20 02:21 94 H 20 114/78 99 11/06/20 02:11 94 H 20 105/68 98 11/06/20 02:00 93 H 20 128/89 100 11/06/20 01:51 93 H 20 115/79 98 11/06/20 01:41 94 H 20 105/68 97 11/06/20 01:30 94 H 20 105/68 97 11/06/20 01:20 95 H 20 97 11/06/20 01:10 96 H 20 112/77 97 11/06/20 01:00 97 H 20 112/77 97 11/06/20 00:50 97 H 20 110/77 96 11/06/20 00:40 96 H 20 130/78 94 11/06/20 00:36 94 11/06/20 00:30 111 H 24 130/78 99 11/06/20 00:20 94 H 20 130/77 98 11/06/20 00:10 94 H 20 129/81 98 11/06/20 00:00 93 H 90 90 20 129/81 98 11/05/20 23:50 92 H 20 128/82 98 11/05/20 23:42 93 H 20 128/62 98 11/05/20 23:40 93 H 20 128/62 99 11/05/20 23:30 93 H 20 128/62 99 11/05/20 23:20 92 H 20 129/78 99 11/05/20 23:10 91 H 20 128/77 99 11/05/20 23:00 92 H 20 128/77 99 11/05/20 22:50 92 H 20 128/66 99 11/05/20 22:40 91 H 20 124/78 98 11/05/20 22:30 91 H 20 124/78 98 11/05/20 22:20 91 H 20 128/74 98 11/05/20 22:10 91 H 20 125/60 98 11/05/20 22:00 91 H 20 125/60 98 11/05/20 21:50 90 20 124/74 98 11/05/20 21:40 90 20 125/71 98 05/07/21 21:30 91 H 20 125/71 98 05/07/21 21:20 91 H 20 120/72 98 05/07/21 21:10 90 20 119/72 98 05/07/21 21:00 90 20 119/72 98 05/07/21 20:50 91 H 20 114/63 97 05/07/21 20:46 92 H 123/73 99 05/07/21 20:40 96 H 17 123/73 100 05/07/21 20:30 88 20 123/73 99 05/07/21 20:20 88 20 119/72 99 05/07/21 20:10 89 20 119/68 98 05/07/21 20:00 90 90 90 20 119/68 99 05/07/21 19:50 87 20 106/67 99 05/07/21 19:40 88 20 100/58 98 05/07/21 19:30 87 20 100/58 98 05/07/21 19:20 87 20 98/58 98 05/07/21 19:10 87 20 97/57 98 05/07/21 19:00 87 20 97/57 98 05/07/21 18:50 87 20 98/54 98 05/07/21 18:40 87 20 100/53 98 05/07/21 18:30 87 20 100/53 98 05/07/21 18:20 88 20 95/52 97 05/07/21 18:10 88 20 98/53 97 05/07/21 18:00 89 20 98/53 97 05/07/21 17:56 89 98/53 05/07/21 17:50 92 H 20 93/55 98 05/07/21 17:40 90 20 101/61 98 05/07/21 17:30 91 H 20 101/61 99 05/07/21 17:20 93 H 20 107/66 98 05/07/21 17:10 96 H 20 119/75 97 05/07/21 17:00 104 H 20 119/75 98 05/07/21 16:50 86 20 107/67 98 05/07/21 16:40 85 20 106/67 98 05/07/21 16:30 86 20 106/67 98 05/07/21 16:20 85 20 102/66 98 05/07/21 16:17 86 102/66 98 05/07/21 16:10 86 20 101/61 98 11/05/20 16:07 99.4 F 11/05/20 16:00 85 86 20 101/61 98 11/05/20 15:50 86 20 104/63 98 11/05/20 15:40 88 20 99/63 98 11/05/20 15:30 86 20 99/63 98 11/05/20 15:20 85 20 97/60 97 11/05/20 15:10 85 20 97/56 97 11/05/20 15:00 85 20 97/56 97 11/05/20 14:50 86 20 98/60 97 11/05/20 14:40 86 20 99/58 98 11/05/20 14:30 87 20 99/58 98 11/05/20 14:20 86 20 98/58 97 11/05/20 14:10 87 20 102/62 97 11/05/20 14:03 89 99/58 11/05/20 14:00 88 20 102/62 97 11/05/20 13:59 88 30 H 106/62 97 11/05/20 13:50 87 20 99/58 99 11/05/20 13:40 86 20 101/55 99 11/05/20 13:30 86 20 101/55 99 11/05/20 13:20 87 20 98/58 99 11/05/20 13:10 87 20 97/56 99 11/05/20 13:00 88 20 97/56 99 11/05/20 12:50 90 19 105/62 98 11/05/20 12:40 91 H 20 100/59 99 11/05/20 12:30 92 H 20 100/59 99 11/05/20 12:22 99.2 F 11/05/20 12:20 94 H 20 109/65 99 - Physical Examination General: Other (Sedated, on the vent) HEENT: Positive: PERRL Neck: Positive: neck supple Cardiac: Positive: Reg Rate and Rhythm Lungs: Positive: Decreased Breath Sounds Neuro: Positive: Weakness (Sedated, on the vent) Abdomen: Positive: Soft Skin: Positive: Clear Extremities: Absent: edema - Labs and Meds Cardiac Enzymes 11/06/20 Range/Units 06:45 Lactate Dehydrogenase 298 H (91-180) units/L Coagulation 11/06/20 Range/Units 06:45 PT 13.2 (12.2-14.9) Sec. INR 1.02 (0.87-1.13) CBC 11/06/20 Range/Units 06:45 WBC 10.3 (4.5-11.0) K/mm3 RBC 4.76 (3.65-5.03) M/mm3 Hgb 14.1 (11.8-15.2) gm/dl Hct 43.5 (35.5-45.6) % Plt Count 113 L (140-440) K/mm3 Lymph # (Auto) 2.4 (1.2-5.4) K/mm3 [place] # (Auto) 1.4 H (0.0-0.8) K/mm3 Eos # (Auto) 0.1 (0.0-0.4) K/mm3 Baso # (Auto) 0.0 (0.0-0.1) K/mm3 Comprehensive Metabolic Panel 11/06/20 Range/Units 06:45 Sodium 139 (137-145) mmol/L Potassium 4.5 (3.6-5.0) mmol/L Chloride 99.6 (98-107) mmol/L Carbon Dioxide 24 (22-30) mmol/L BUN 11 (9-20) mg/dL Creatinine 0.8 (0.8-1.3) mg/dL Glucose 105 H (75-100) mg/dL Calcium 8.6 (8.4-10.2) mg/dL
--- NOTE | 2020-11-06 13:03 | Progress Note ---
Assessment and Plan Assessment and plan: This is a 30-year-old male with EtOH dependence who was admitted as a Covid 19 pui with lactic acidosis, transaminitis, respiratory failure s/p SVT. Acute respiratory failure COVID-19 PUI Acute Systolic Heart Failure Cardiomyopathy SVT Transaminitis Hypomagnesemia Hepatic steatosis EtOH abuse -Cardiology, infectious disease, nutrition, CCM consulted, appreciate recommendations -11/05 COVID-19 PCR pending -11/05 echocardiogram shows left ventricular moderate to severely dilated, left ventricle systolic function severely decreased, LVEF 15 to 20%, mild concentric left ventricle hypertrophy, trace MR. -IV antibiotics were discontinued on 11/06 by infectious disease -11/06 patient self extubated -As needed Haldol -IV metoprolol -IV Lasix twice daily -CIWA protocol -11/05 blood cultures x2 pending -11/05 sputum culture pending DVT/GI prophylaxis: PPI, SCDs to bilateral lower extremities while in bed, hepa rin subcu Disposition: ICU/ transfer to floor History Interval history: This is a 30-year-old male with EtOH abuse who presented to the emergency department on 11/05 with complaints of palpitations, cough, shortness of breath ssociated with mild chest discomfort for about 2 weeks and over the last few days he has had hemoptysis. Work-up in the emergency department included a CTA chest which showed moderate patchy bilateral airspace opacities worrisome for multifocal pneumonia, hepatic steatosis and no evidence of pulmonary embolism and of note his blood alcohol level was 0.29. Patient was admitted to the hospital service with lactic acidosis, transaminitis, possible multifocal pneumonia as a COVID-19 PUI. CCM, ID, cardiology consulted. 11/06: At the time of my examination patient was sedated on fentanyl and propofol and Precedex on assist control mode ventilation rate of 20, PEEP of 6, tidal volume 450, FiO2 40%. COVID-19 PCR pending. Early afternoon patient self extubated. Given ejection fraction [facility] has initiated IV Lasix twice daily. We will trend BMP. Hospitalist Physical - Constitutional Vitals: Temp Pulse Resp BP Pulse Ox 99.4 F 100 H 13 140/90 96 11/05/20 16:07 11/06/20 12:51 11/06/20 12:51 11/06/20 12:51 11/06/20 12:51 General appearance: Present: other (intubated on the vent at the time my examination, restless) - EENT Eyes: Present: PERRL ENT: poor dentition - Neck Neck: Present: normal ROM - Respiratory Respiratory effort: normal Respiratory: bilateral: CTA - Cardiovascular Rhythm: regular Heart Sounds: Present: S1 & S2. Absent: systolic murmur, diastolic murmur - Extremities Extremities: no ischemia, pulses intact, pulses symmetrical, No edema, normal temperature, normal color Peripheral Pulses: within normal limits - Abdominal General gastrointestinal: soft, non-tender, non-distended - Integumentary Integumentary: Present: warm, dry - Psychiatric Psychiatric: other (Sedated) - Neurologic Neurologic: other (Sedated) - Allied Health Allied health notes reviewed: nursing, RT HEART Score - HEART Score Troponin: Troponin T < 0.010 ng/mL (0.00-0.029) 11/04/20 20:32 Results - Labs CBC & Chem 7: 11/06/20 06:45 11/06/20 06:45 Labs: Laboratory Last Values WBC 10.3 K/mm3 (4.5-11.0) 11/06/20 06:45 RBC 4.76 M/mm3 (3.65-5.03) 11/06/20 06:45 Hgb 14.1 gm/dl (11.8-15.2) 11/06/20 06:45 Hct 43.5 % (35.5-45.6) 11/06/20 06:45 MCV 91 fl (84-94) 11/06/20 06:45 MCH 30 pg (28-32) 11/06/20 06:45 MCHC 32 % (32-34) 11/06/20 06:45 RDW 17.3 % (13.2-15.2) H 11/06/20 06:45 Plt Count 113 K/mm3 (140-440) L 11/06/20 06:45 Lymph % (Auto) 23.5 % (13.4-35.0) 11/06/20 06:45 [place] % (Auto) 13.6 % (0.0-7.3) H 11/06/20 06:45 Eos % (Auto) 1.4 % (0.0-4.3) 11/06/20 06:45 Baso % (Auto) 0.3 % (0.0-1.8) 11/06/20 06:45 Lymph # (Auto) 2.4 K/mm3 (1.2-5.4) 11/06/20 06:45 [place] # (Auto) 1.4 K/mm3 (0.0-0.8) H 11/06/20 06:45 Eos # (Auto) 0.1 K/mm3 (0.0-0.4) 11/06/20 06:45 Baso # (Auto) 0.0 K/mm3 (0.0-0.1) 11/06/20 06:45 Seg Neutrophils % 61.2 % (40.0-70.0) 11/06/20 06:45 Seg Neutrophils # 6.3 K/mm3 (1.8-7.7) 11/06/20 06:45 PT 13.2 Sec. (12.2-14.9) 11/06/20 06:45 INR 1.02 (0.87-1.13) 11/06/20 06:45 APTT 32.6 Sec. (24.2-36.6) 11/04/20 15:40 D-Dimer 175.50 ng/mlDDU (0-234) 11/06/20 06:45 ABG pH 7.406 (7.320-7.450) 11/06/20 03:34 POC ABG pCO2 38.1 mmHg (32.0-48.0) 11/06/20 03:34 ABG pCO2 37.2 mm Hg 11/05/20 06:10 POC ABG pO2 88.8 mmHg (83-108) 11/06/20 03:34 ABG pO2 202.8 mm Hg (80.0-90.0) H 11/05/20 06:10 POC ABG HCO3 23.4 11/06/20 03:34 ABG HCO3 20.5 mmol/L (20.0-26.0) 11/05/20 06:10 ABG O2 Saturation 97.4 (0-100) 11/06/20 03:34 ABG O2 Content 20.4 (0.0-44) 11/05/20 06:10 POC ABG Base Excess -1.0 11/06/20 03:34 ABG Base Excess -4.4 mmol/L (-2.0-3.0) L 11/05/20 06:10 ABG Hemoglobin 13.3 (12.0-17.5) 11/06/20 03:34 ABG Oxyhemoglobin 96.0 (94-98) 11/06/20 03:34 ABG Carboxyhemoglobin 1.2 % (0.0-5.0) 11/05/20 06:10 ABG Methemoglobin 0.3 (0.0-1.5) 11/06/20 03:34 ABG Sodium 135.5 mmol/L (136.0-145.0) L 11/06/20 03:34 ABG Potassium 3.9 mmol/L (3.40-4.50) 11/06/20 03:34 ABG Chloride 103.0 mmol/L (98-107) 11/06/20 03:34 ABG Glucose 140 mg/dL (65-95) H 11/06/20 03:34 Oxyhemoglobin 97.5 % (95.0-99.0) 11/05/20 06:10 Carboxyhemoglobin 1.1 (0.5-1.5) 11/06/20 03:34 FiO2 100 % 11/05/20 06:10 FiO2 % 40.0 11/06/20 03:34 Sodium 139 mmol/L (137-145) 11/06/20 06:45 Potassium 4.5 mmol/L (3.6-5.0) 11/06/20 06:45 Chloride 99.6 mmol/L (98-107) 11/06/20 06:45 Carbon Dioxide 24 mmol/L (22-30) 11/06/20 06:45 Anion Gap 20 mmol/L 11/06/20 06:45 BUN 11 mg/dL (9-20) 11/06/20 06:45 Creatinine 0.8 mg/dL (0.8-1.3) 11/06/20 06:45 Estimated GFR > 60 ml/min 11/06/20 06:45 BUN/Creatinine Ratio 14 % 11/06/20 06:45 Glucose 105 mg/dL (75-100) H 11/06/20 06:45 POC Glucose 133 mg/dL (70-105) H 11/06/20 05:01 Lactic Acid 1.30 mmol/L (0.7-2.0) 11/05/20 08:49 Calcium 8.6 mg/dL (8.4-10.2) 11/06/20 06:45 Phosphorus 4.20 mg/dL (2.5-4.5) 11/05/20 08:49 Magnesium 2.80 mg/dL (1.7-2.3) H 11/06/20 06:45 Ferritin 369.6 ng/mL (30.0-300.0) H 11/06/20 06:45 Total Bilirubin 0.70 mg/dL (0.1-1.2) 11/04/20 15:40 AST 213 units/L (5-40) H 11/04/20 15:40 ALT 107 units/L (7-56) H 11/04/20 15:40 Alkaline Phosphatase 184 units/L (35-129) H 11/04/20 15:40 Lactate Dehydrogenase 298 units/L (91-180) H 11/06/20 06:45 Troponin T < 0.010 ng/mL (0.00-0.029) 11/04/20 20:32 C-Reactive Protein 6.00 mg/dL (0.00-1.30) H 11/06/20 06:45 Total Protein 7.7 g/dL (6.3-8.2) 11/04/20 15:40 Albumin 3.9 g/dL (3.9-5) 11/04/20 15:40 Albumin/Globulin Ratio 1.0 % 11/04/20 15:40 Lipase 46 units/L (13-60) 11/04/20 15:40 Procalcitonin 0.22 ng/mL (<0.15) 11/04/20 Unknown TSH 2.840 mlU/mL (0.270-4.200) 11/04/20 20:53 Free T4 0.74 ng/dL (0.76-1.46) L 11/04/20 20:53 Arterial Blood Glucose 140 mg/dL (65-95) H 11/06/20 03:34 Arterial Blood Ionized Calcium 4.7 mg/dL (4.6-5.3) 11/06/20 03:34 Urine Color Yellow (Yellow) 11/05/20 Unknown Urine Turbidity Clear (Clear) 11/05/20 Unknown Urine pH 5.0 (5.0-7.0) 11/05/20 Unknown Ur Specific [place] 1.038 (1.003-1.030) H 11/05/20 Unknown Urine Protein 100 mg/dl mg/dL (Negative) 11/05/20 Unknown Urine Glucose (UA) Neg mg/dL (Negative) 11/05/20 Unknown Urine Ketones Neg mg/dL (Negative) 11/05/20 Unknown Urine Blood Sm (Negative) 11/05/20 Unknown Urine Nitrite Neg (Negative) 11/05/20 Unknown Urine Bilirubin Neg (Negative) 11/05/20 Unknown Urine Urobilinogen < 2.0 mg/dL (<2.0) 11/05/20 Unknown Ur Leukocyte Esterase Neg (Negative) 11/05/20 Unknown Urine WBC (Auto) 1.0 /HPF (0.0-6.0) 11/05/20 Unknown Urine RBC (Auto) 1.0 /HPF (0.0-6.0) 11/05/20 Unknown Urine Mucus Few /HPF 11/05/20 Unknown Urine Opiates Screen Negative 11/05/20 Unknown Urine Methadone Screen Negative 11/05/20 Unknown Ur Barbiturates Screen Negative 11/05/20 Unknown Ur Phencyclidine Scrn Negative 11/05/20 Unknown Ur Amphetamines Screen Negative 11/05/20 Unknown U Benzodiazepines Scrn Negative 11/05/20 Unknown Urine Cocaine Screen Negative 11/05/20 Unknown U Marijuana (THC) Screen Negative 11/05/20 Unknown Drugs of Abuse Note Disclamer 11/05/20 Unknown Plasma/Serum Alcohol 0.29 % (0-0.07) H 11/04/20 15:40 Microbiology: Microbiology 11/04/20 21:44 Peripheral/Venous Blood Culture - Preliminary NO GROWTH AFTER 24 HOURS 11/04/20 21:44 Peripheral/Venous Blood Culture - Preliminary NO GROWTH AFTER 24 HOURS 11/05/20 04:55 Tracheal Aspirate Sputum Culture - Preliminary Luna/IV: Voiding Method Indwelling Catheter Active Medications - Current Medications Current Medications: Generic Name Dose Route Start Last Admin Trade Name Freq PRN Reason Stop Dose Admin Acetaminophen 650 mg 11/05/20 02:37 Acetaminophen 325 Mg Tab PO Q4H PRN Pain MILD(1-3)/Fever >100.5/GUILLAUME Lipase/Protease/Amylase 1 each 11/05/20 14:17 Lipase 10,500/Protease 25,000/Amylase 43,750 (Units) Dr Cap FEEDTUBE PRN PRN For Clogged Feeding Tube Famotidine 20 mg 11/05/20 11:00 11/06/20 09:25 Famotidine 20 Mg/2 Ml Inj IV 20 mg BID DEVI Administration Fentanyl 50 mcg 11/05/20 06:04 Fentanyl 100 Mcg/2 Ml Inj IV Q10MIN PRN ANALGESIA Folic Acid 1 mg 11/05/20 10:00 11/06/20 09:25 Folic Acid 1 Mg Tab PO 1 mg DAILY DEVI Administration Furosemide 20 mg 11/06/20 18:00 Furosemide 20 Mg/2 Ml Inj IV 0600,1800 DEVI Haloperidol Lactate 5 mg 11/06/20 12:00 Haloperidol Lactate 5 Mg/1 Ml Inj IV Q6H PRN Agitation Heparin Sodium (Porcine) 5,000 unit 11/05/20 06:00 11/06/20 06:05 Heparin 5,000 Unit/1 Ml Vial SUB-Q 5,000 unit Q8HR DEVI Administration Hydrophilic Ointment 1 applic 11/05/20 04:24 Lip Therapy Vaseline TP Q2HR PRN Dry Lips Ceftriaxone Sodium 2 gm in 100 mls @ 200 mls/hr 11/05/20 03:00 11/06/20 02:37 Rocephin/Ns 2 Gm/100 Ml IV 200 mls/hr Q24H DEVI Administration Protocol Azithromycin 500 mg in 250 mls @ 250 mls/hr 11/05/20 03:00 11/06/20 02:41 Zithromax/Ns IV 250 mls/hr Q24H DEVI Administration Protocol Propofol 1,000 mg in 100 mls @ 2.648 mls/hr 11/05/20 06:00 11/06/20 11:45 Diprivan 10 Mg/Ml IV 0 mcg/kg/min TITR DEVI 0 mls/hr Titration Protocol 5 MCG/KG/MIN Fentanyl Citrate 2,000 mcg in 100 mls @ 4.413 mls/hr 11/05/20 07:00 11/06/20 11:45 Fentanyl Drip Premix IV 0 mcg/kg/hr TITR DEVI 0 mls/hr Titration Protocol 1 MCG/KG/HR Dexmedetomidine HCl 400 mcg/ 104 mls @ 4.59 mls/hr 11/05/20 11:00 11/06/20 11:45 Sodium Chloride IV 0 mcg/kg/hr TITRATE DEVI 0 mls/hr Titration Protocol 0.2 MCG/KG/HR Lorazepam 4 mg 11/06/20 12:02 Lorazepam 2 Mg/Ml Vial IV Q1HR PRN CIWA-Ar 16-25 Magnesium Hydroxide 30 ml 11/05/20 02:37 Magnesium Hydroxide (Mom) Oral Liqd Udc PO Q4H PRN Constipation Metoprolol Tartrate 2.5 mg 11/05/20 12:15 11/06/20 09:26 Metoprolol Tartrate 5 Mg/5 Ml Inj IV 2.5 mg Q4HR DEVI Administration Morphine Sulfate 2 mg 11/05/20 02:37 Morphine 2 Mg/1 Ml Inj IV Q4H PRN Pain, Moderate (4-6) Multi-Ingred Cream/Lotion/Oil/Oint 1 applic 11/05/20 04:24 Mineral Oil/Petrolatum, White Ophth Oint 3.5 Gm OU Q4HR PRN Dry Eye(s) Ondansetron HCl 4 mg 11/05/20 02:37 Ondansetron 4 Mg/2 Ml Inj IV Q8H PRN Nausea And Vomiting Simple Syrup 15 ml 11/05/20 14:17 Simple Syrup 15 Ml FEEDTUBE PRN PRN Hypoglycemia Simple Syrup 30 ml 11/05/20 14:17 Simple Syrup 15 Ml FEEDTUBE PRN PRN Hypoglycemia Sodium Bicarbonate 325 mg 11/05/20 14:17 Sodium Bicarbonate 325 Mg Tab FEEDTUBE PRN PRN For Clogged Feeding Tube Sodium Chloride 10 ml 11/05/20 10:00 11/06/20 09:27 Sodium Chloride 0.9% 10 Ml Flush Syringe IV 10 ml BID DEVI Administration Sodium Chloride 10 ml 11/05/20 02:37 Sodium Chloride 0.9% 10 Ml Flush Syringe IV PRN PRN LINE FLUSH Thiamine HCl 100 mg 11/05/20 10:00 11/06/20 09:25 Thiamine 100 Mg Tab PO 100 mg QDAY DEVI Administration Nutrition/Malnutrition Assess - Dietary Evaluation Nutrition/Malnutrition Findings: Nutrition Notes Start: 11/05/20 14:06 Freq: Status: Active Protocol: Document 11/05/20 14:06 CW (Rec: 11/05/20 14:17 CW [id number]) Nutrition Notes Need for Assessment generated from: MD Order,MST Initial or Follow up Assessment Current Diagnosis Sepsis,Respiratory Failure Other Pertinent Diagnosis etOH abuse, pneu Current Diet No current diet Labs/Tests Na 136 Pertinent Medications Propofol at 15.88 ml/hr ( 419kcal) Thiamine Folic Acid Decadron Lasix NS 1L Height 5 ft 11 in Weight 88.269 kg [place] Body Weight (kg) 78.18 BMI 27.1 Weight Status Overweight Subjective/Other Information MD consult for write/manage TF . RN screen for MST. Pt currently on mechanical vent. Recommend Vital AF. TF regimen adjusted for propofol usage. Burn Absent Trauma Absent Current % PO Negligible Minimum of two criteria No physical signs of malnutrition #1 Nutrition Diagnosis Inadequate oral intake Etiology pt unable to feed via PO As Evidenced by Signs and Symptoms Pt on mechanical vent Is patient on ventilator? Yes Is Patient Ambulatory and/or Out of Bed No REE-([facility]-confined to bed) 4653.666 Calculation Used for Recommendations [facility] Additional Notes protein needs: 106 - 177 g (1. 2 - 2 g/kgBW) fluid needs: 1 ml/kcal Nutrition Intervention Change Diet Order: Initiate TF Regimen Nutrition Support: Vital AF at 65 ml/hr with a free water flush of 175 ml q4h Kcal 1,872 Protein (gm) 117 Fluid (mL) 1,265 Goal #1 Meet at least 75% of kcal and protein needs via TF Anticipated Discharge Needs: unable to determine at this time Follow-Up By: 11/08/20 Additional Comments F/U for TF at goal, propofol status, vent status, TF [place]
[2020-11-06] MEDS: FUROSEMIDE 20 MG/2 ML INJ IV SCH (19:07)
[2020-11-07] MEDS ORDERED: PHENOL 1.4% 177 ML BOTTLE MM PRN (00:58)
[2020-11-07] MEDS: METOPROLOL TARTRATE 5 MG/5 ML INJ IV SCH ×3 (01:37→09:25)
[2020-11-07] MEDS: LORazepam 2 MG/ML VIAL IV PRN ×4 (01:44→18:40)
[2020-11-07] MEDS: FUROSEMIDE 20 MG/2 ML INJ IV SCH (05:55)
[2020-11-07] MEDS: HEPARIN 5,000 UNIT/1 ML VIAL SUB-Q SCH ×3 (05:58→21:39)
[2020-11-07] MEDS: FOLIC ACID 1 MG TAB PO SCH (09:25)
[2020-11-07] MEDS: FAMOTIDINE 20 MG TAB PO SCH ×2 (09:28→21:40)
[2020-11-07] MEDS: THIAMINE 100 MG TAB PO SCH (09:28)
--- NOTE | 2020-11-07 09:28 | Progress Note ---
Assessment and Plan Cultures: SARS CoV2 PCR: Negative 11/04/2020 blood culture: no growth 11/05/2020 tracheal aspirate culture: No organisms. Less than 25 WBC/low power field. A/P: 30-year-old male who presented to the emergency room with complaints of chest pain, hemoptysis and shortness of breath: #Bilateral pneumonia v/s CHF: likely latter given low EF, ?dilated cardiomyopathy. Negative for COVID-19. Inflammatory markers, procal are low. CTA with patchy bilateral airspace opacities. #Acute hypoxic respiratory failure: On the vent #?Alcohol intoxication, alcoholic hepatitis: CT revealed hepatic steatosis. #Dilated cardiomyopathy: cardiology on board. Recs: -stable off antibiotics Will sign off. Please call with questions. Trisha Atkins MD, FACP [facility], [place], [facility] ([facility]) O: [phone] F: [phone] Subjective Date of service: 11/07/20 Interval history: Self extubated yesterday. 1 episode of low grade fever. Stable, no complaints. Wants to go home. Objective - Exam Narrative Exam: Physical Exam Constitutional: Alert, cooperative. No acute distress Head, Ears, Nose: Normocephalic, atraumatic. External ears, nose normal Eyes: Conjunctivae/corneas clear. No icterus. No ptosis. Neck: Supple, no meningeal signs Cardiovascular: S1, S2 normal. Respiratory: Good air entry, clear to auscultation bilaterally GI: Soft, non-tender; bowel sounds normal. No peritoneal signs Musculoskeletal: No pedal edema, no cyanosis. Skin: No rash or abscess Hem/Lymphatic: No palpable cervical or supraclavicular nodes. No lymphangitis Psych: flat affect Neurological: Awake, alert, oriented. No gross abnormality - Constitutional Vitals: Vital Signs Temp Pulse Resp BP Pulse Ox 98.8 F 103 H 12 146/104 98 11/07/20 08:43 11/07/20 08:43 11/07/20 08:43 11/07/20 08:43 11/07/20 08:43 Temperature -Last 24 Hours Temperature 98.8 F Temperature 100.1 F Temperature 99.1 F - Labs CBC & Chem 7: 11/06/20 06:45 11/06/20 06:45
[2020-11-07 10:06] LABS: Alanine Aminotransferase 57 units/L (7-56); Albumin 3.8 g/dL (3.9-5); Blood Urea Nitrogen 8 mg/dL (9-20); Calcium 8.9 mg/dL (8.4-10.2); Hemolysis Index 17
[2020-11-07 10:13] LABS: BUN/Creatinine Ratio 13
--- NOTE | 2020-11-07 10:45 | Progress Note ---
Assessment and Plan Assessment and plan: This is a 30-year-old male with EtOH dependence who was admitted as a Covid 19 pui with lactic acidosis, transaminitis, respiratory failure s/p SVT. Acute respiratory failure COVID-19 PUI Acute Systolic Heart Failure Cardiomyopathy SVT Transaminitis Hypomagnesemia Hepatic steatosis EtOH abuse -Cardiology, infectious disease, nutrition, CCM consulted, appreciate recommendations -11/05 COVID-19 PCR pending -11/05 echocardiogram shows left ventricular moderate to severely dilated, left ventricle systolic function severely decreased, LVEF 15 to 20%, mild concentric left ventricle hypertrophy, trace MR. -IV antibiotics were discontinued on 11/06 by infectious disease -11/06 patient self extubated -As needed Haldol -IV metoprolol -IV Lasix twice daily -CIWA protocol -11/05 blood cultures x2 pending -11/05 sputum culture pending DVT/GI prophylaxis: PPI, SCDs to bilateral lower extremities while in bed, hep zhanna subcu Disposition: ICU/ transfer to floor History Interval history: This is a 30-year-old male with EtOH abuse who presented to the emergency department on 11/05 with complaints of palpitations, cough, shortness of breath ssociated with mild chest discomfort for about 2 weeks and over the last few days he has had hemoptysis. Work-up in the emergency department included a CTA chest which showed moderate patchy bilateral airspace opacities worrisome for multifocal pneumonia, hepatic steatosis and no evidence of pulmonary embolism and of note his blood alcohol level was 0.29. Patient was admitted to the hospital service with lactic acidosis, transaminitis, possible multifocal pneumonia as a COVID-19 PUI. CCM, ID, cardiology consulted. 11/06: At the time of my examination patient was sedated on fentanyl and propofol and Precedex on assist control mode ventilation rate of 20, PEEP of 6, tidal volume 450, FiO2 40%. COVID-19 PCR pending. Early afternoon patient self extubated. Given ejection fraction [facility] has initiated IV Lasix twice daily. We will trend BMP. 11/07/2020; patient was on 2 L of oxygen, I have discussed the nurse to take off his oxygen and see how he is doing. Patient said he has been drinking half a gallon of liquor every day and have counseled extensively to quit drinking given his condition. Patient agreed to quit drinking. 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 His bilirubin was elevated this morning and I put a consult for GI. Patient had low-grade fever this morning and was seen by ID and recommend no antibiotic and ID signed off. Patient is on CIWA protocol. He has hyponatremia and will monitor. Patient can be discharged tomorrow if patient is doing well. History Interval history: Patient was seen and evaluated this morning Patient does not have any complaints Hospitalist Physical - Physical exam Narrative exam: Not in cardiopulmonary distress. The patient appeared well nourished and normally developed. Vital signs as documented. Head exam is unremarkable. No scleral icterus . His eyes are red Neck is without jugular venous distension, thyromegaly, or carotid bruits. Lungs are clear to auscultation. Cardiac exam reveals regular rate and Rhythm. Abdominal exam reveals normal bowel sounds, nontender, no organomegaly. Extremities are nonedematous and both femoral and pedal pulses are normal. 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 No focal weakness. - Constitutional Vitals: Temp Pulse Resp BP Pulse Ox 98.8 F 103 H 12 146/104 98 11/07/20 08:43 11/07/20 09:25 11/07/20 08:43 11/07/20 09:25 11/07/20 08:43 General appearance: Present: other (intubated on the vent at the time my examination, restless) HEART Score - HEART Score Troponin: Troponin T < 0.010 ng/mL (0.00-0.029) 11/04/20 20:32 Results - Labs CBC & Chem 7: 11/06/20 06:45 11/07/20 08:27 Labs: Laboratory Last Values WBC 10.3 K/mm3 (4.5-11.0) 11/06/20 06:45 RBC 4.76 M/mm3 (3.65-5.03) 11/06/20 06:45 Hgb 14.1 gm/dl (11.8-15.2) 11/06/20 06:45 Hct 43.5 % (35.5-45.6) 11/06/20 06:45 MCV 91 fl (84-94) 11/06/20 06:45 MCH 30 pg (28-32) 11/06/20 06:45 MCHC 32 % (32-34) 11/06/20 06:45 RDW 17.3 % (13.2-15.2) H 11/06/20 06:45 Plt Count 113 K/mm3 (140-440) L 11/06/20 06:45 Lymph % (Auto) 23.5 % (13.4-35.0) 11/06/20 06:45 [place] % (Auto) 13.6 % (0.0-7.3) H 11/06/20 06:45 Eos % (Auto) 1.4 % (0.0-4.3) 11/06/20 06:45 Baso % (Auto) 0.3 % (0.0-1.8) 11/06/20 06:45 Lymph # (Auto) 2.4 K/mm3 (1.2-5.4) 11/06/20 06:45 [place] # (Auto) 1.4 K/mm3 (0.0-0.8) H 11/06/20 06:45 Eos # (Auto) 0.1 K/mm3 (0.0-0.4) 11/06/20 06:45 Baso # (Auto) 0.0 K/mm3 (0.0-0.1) 11/06/20 06:45 Seg Neutrophils % 61.2 % (40.0-70.0) 11/06/20 06:45 Seg Neutrophils # 6.3 K/mm3 (1.8-7.7) 11/06/20 06:45 PT 13.2 Sec. (12.2-14.9) 11/06/20 06:45 INR 1.02 (0.87-1.13) 11/06/20 06:45 APTT 32.6 Sec. (24.2-36.6) 11/04/20 15:40 D-Dimer 175.50 ng/mlDDU (0-234) 11/06/20 06:45 ABG pH 7.406 (7.320-7.450) 11/06/20 03:34 POC ABG pCO2 38.1 mmHg (32.0-48.0) 11/06/20 03:34 ABG pCO2 37.2 mm Hg 11/05/20 06:10 POC ABG pO2 88.8 mmHg (83-108) 11/06/20 03:34 ABG pO2 202.8 mm Hg (80.0-90.0) H 11/05/20 06:10 POC ABG HCO3 23.4 11/06/20 03:34 ABG HCO3 20.5 mmol/L (20.0-26.0) 11/05/20 06:10 ABG O2 Saturation 97.4 (0-100) 11/06/20 03:34 ABG O2 Content 20.4 (0.0-44) 11/05/20 06:10 POC ABG Base Excess -1.0 11/06/20 03:34 ABG Base Excess -4.4 mmol/L (-2.0-3.0) L 11/05/20 06:10 ABG Hemoglobin 13.3 (12.0-17.5) 11/06/20 03:34 ABG Oxyhemoglobin 96.0 (94-98) 11/06/20 03:34 ABG Carboxyhemoglobin 1.2 % (0.0-5.0) 11/05/20 06:10 ABG Methemoglobin 0.3 (0.0-1.5) 11/06/20 03:34 ABG Sodium 135.5 mmol/L (136.0-145.0) L 11/06/20 03:34 ABG Potassium 3.9 mmol/L (3.40-4.50) 11/06/20 03:34 ABG Chloride 103.0 mmol/L (98-107) 11/06/20 03:34 ABG Glucose 140 mg/dL (65-95) H 11/06/20 03:34 Oxyhemoglobin 97.5 % (95.0-99.0) 11/05/20 06:10 Carboxyhemoglobin 1.1 (0.5-1.5) 11/06/20 03:34 FiO2 100 % 11/05/20 06:10 FiO2 % 40.0 11/06/20 03:34 Sodium 131 mmol/L (137-145) L D 11/07/20 08:27 Potassium 3.6 mmol/L (3.6-5.0) 11/07/20 08:27 Chloride 90.5 mmol/L (98-107) L 11/07/20 08:27 Carbon Dioxide 23 mmol/L (22-30) 11/07/20 08:27 Anion Gap 21 mmol/L 11/07/20 08:27 BUN 8 mg/dL (9-20) L 11/07/20 08:27 Creatinine 0.6 mg/dL (0.8-1.3) L 11/07/20 08:27 Estimated GFR > 60 ml/min 11/07/20 08:27 BUN/Creatinine Ratio 13 % 11/07/20 08:27 Glucose 80 mg/dL (75-100) 11/07/20 08:27 POC Glucose 78 mg/dL (70-105) 11/06/20 17:47 Lactic Acid 1.30 mmol/L (0.7-2.0) 11/05/20 08:49 Calcium 8.9 mg/dL (8.4-10.2) 11/07/20 08:27 Phosphorus 4.20 mg/dL (2.5-4.5) 11/05/20 08:49 Magnesium 2.80 mg/dL (1.7-2.3) H 11/06/20 06:45 Ferritin 369.6 ng/mL (30.0-300.0) H 11/06/20 06:45 Total Bilirubin 2.40 mg/dL (0.1-1.2) H 11/07/20 08:27 AST 114 units/L (5-40) H 11/07/20 08:27 ALT 57 units/L (7-56) H 11/07/20 08:27 Alkaline Phosphatase 249 units/L (35-129) H 11/07/20 08:27 Lactate Dehydrogenase 298 units/L (91-180) H 11/06/20 06:45 Troponin T < 0.010 ng/mL (0.00-0.029) 11/04/20 20:32 C-Reactive Protein 6.00 mg/dL (0.00-1.30) H 11/06/20 06:45 Total Protein 7.4 g/dL (6.3-8.2) 11/07/20 08:27 Albumin 3.8 g/dL (3.9-5) L 11/07/20 08:27 Albumin/Globulin Ratio 1.1 % 11/07/20 08:27 Lipase 46 units/L (13-60) 11/04/20 15:40 Procalcitonin 0.22 ng/mL (<0.15) 11/04/20 Unknown TSH 2.840 mlU/mL (0.270-4.200) 11/04/20 20:53 Free T4 0.74 ng/dL (0.76-1.46) L 11/04/20 20:53 Arterial Blood Glucose 140 mg/dL (65-95) H 11/06/20 03:34 Arterial Blood Ionized Calcium 4.7 mg/dL (4.6-5.3) 11/06/20 03:34 Urine Color Yellow (Yellow) 11/05/20 Unknown Urine Turbidity Clear (Clear) 11/05/20 Unknown Urine pH 5.0 (5.0-7.0) 11/05/20 Unknown Ur Specific [place] 1.038 (1.003-1.030) H 11/05/20 Unknown Urine Protein 100 mg/dl mg/dL (Negative) 11/05/20 Unknown Urine Glucose (UA) Neg mg/dL (Negative) 11/05/20 Unknown Urine Ketones Neg mg/dL (Negative) 11/05/20 Unknown Urine Blood Sm (Negative) 11/05/20 Unknown Urine Nitrite Neg (Negative) 11/05/20 Unknown Urine Bilirubin Neg (Negative) 11/05/20 Unknown Urine Urobilinogen < 2.0 mg/dL (<2.0) 11/05/20 Unknown Ur Leukocyte Esterase Neg (Negative) 11/05/20 Unknown Urine WBC (Auto) 1.0 /HPF (0.0-6.0) 11/05/20 Unknown Urine RBC (Auto) 1.0 /HPF (0.0-6.0) 11/05/20 Unknown Urine Mucus Few /HPF 11/05/20 Unknown Urine Opiates Screen Negative 11/05/20 Unknown Urine Methadone Screen Negative 11/05/20 Unknown Ur Barbiturates Screen Negative 11/05/20 Unknown Ur Phencyclidine Scrn Negative 11/05/20 Unknown Ur Amphetamines Screen Negative 11/05/20 Unknown U Benzodiazepines Scrn Negative 11/05/20 Unknown Urine Cocaine Screen Negative 11/05/20 Unknown U Marijuana (THC) Screen Negative 11/05/20 Unknown Drugs of Abuse Note Disclamer 11/05/20 Unknown Plasma/Serum Alcohol 0.29 % (0-0.07) H 11/04/20 15:40 Coronavirus (PCR) Negative (Negative) 11/06/20 Unknown Microbiology: Microbiology 11/04/20 21:44 Peripheral/Venous Blood Culture - Preliminary NO GROWTH AFTER 48 HOURS 11/04/20 21:44 Peripheral/Venous Blood Culture - Preliminary NO GROWTH AFTER 48 HOURS Luna/IV: Voiding Method Indwelling Catheter Active Medications - Current Medications Current Medications: Generic Name Dose Route Start Last Admin Trade Name Freq PRN Reason Stop Dose Admin Acetaminophen 650 mg 11/05/20 02:37 Acetaminophen 325 Mg Tab PO Q4H PRN Pain MILD(1-3)/Fever >100.5/GUILLAUME Famotidine 20 mg 11/07/20 10:00 11/07/20 09:28 Famotidine 20 Mg Tab PO 20 mg BID DEVI Administration Folic Acid 1 mg 11/05/20 10:00 11/07/20 09:25 Folic Acid 1 Mg Tab PO 1 mg DAILY DEVI Administration Furosemide 20 mg 11/06/20 18:00 11/07/20 05:55 Furosemide 20 Mg/2 Ml Inj IV 20 mg 0600,1800 DEVI Administration Haloperidol Lactate 5 mg 11/06/20 12:00 Haloperidol Lactate 5 Mg/1 Ml Inj IV Q6H PRN Agitation Heparin Sodium (Porcine) 5,000 unit 11/05/20 06:00 11/07/20 05:58 Heparin 5,000 Unit/1 Ml Vial SUB-Q 5,000 unit Q8HR DEVI Administration Hydrophilic Ointment 1 applic 11/05/20 04:24 Lip Therapy Vaseline TP Q2HR PRN Dry Lips Lorazepam 4 mg 11/06/20 12:02 11/07/20 08:02 Lorazepam 2 Mg/Ml Vial IV 4 mg Q1HR PRN Administration CIWA-Ar 16-25 Magnesium Hydroxide 30 ml 11/05/20 02:37 Magnesium Hydroxide (Mom) Oral Liqd Udc PO Q4H PRN Constipation Metoprolol Tartrate 2.5 mg 11/05/20 12:15 11/07/20 09:25 Metoprolol Tartrate 5 Mg/5 Ml Inj IV 2.5 mg Q4HR DEVI Administration Morphine Sulfate 2 mg 11/05/20 02:37 Morphine 2 Mg/1 Ml Inj IV Q4H PRN Pain, Moderate (4-6) Multi-Ingred Cream/Lotion/Oil/Oint 1 applic 11/05/20 04:24 Mineral Oil/Petrolatum, White Ophth Oint 3.5 Gm OU Q4HR PRN Dry Eye(s) Ondansetron HCl 4 mg 11/05/20 02:37 Ondansetron 4 Mg/2 Ml Inj IV Q8H PRN Nausea And Vomiting Phenol 1 spray 11/07/20 00:58 11/07/20 01:54 Phenol 1.4% 177 Ml Bottle MM 1 spray PRN PRN Administration Sore Throat Sodium Chloride 10 ml 11/05/20 10:00 11/07/20 09:29 Sodium Chloride 0.9% 10 Ml Flush Syringe IV 10 ml BID DEVI Administration Sodium Chloride 10 ml 11/05/20 02:37 Sodium Chloride 0.9% 10 Ml Flush Syringe IV PRN PRN LINE FLUSH Thiamine HCl 100 mg 11/05/20 10:00 11/07/20 09:28 Thiamine 100 Mg Tab PO 100 mg QDAY DEVI Administration Nutrition/Malnutrition Assess - Dietary Evaluation Nutrition/Malnutrition Findings: Nutrition Notes Start: 11/05/20 14:06 Freq: Status: Active Protocol: Document 11/05/20 14:06 CW (Rec: 11/05/20 14:17 CW [id number]) Nutrition Notes Need for Assessment generated from: MD Order,MST Initial or Follow up Assessment Current Diagnosis Sepsis,Respiratory Failure Other Pertinent Diagnosis etOH abuse, pneu Current Diet No current diet Labs/Tests Na 136 Pertinent Medications Propofol at 15.88 ml/hr ( 419kcal) Thiamine Folic Acid Decadron Lasix NS 1L Height 5 ft 11 in Weight 88.269 kg [place] Body Weight (kg) 78.18 BMI 27.1 Weight Status Overweight Subjective/Other Information MD consult for write/manage TF . RN screen for MST. Pt currently on mechanical vent. Recommend Vital AF. TF regimen adjusted for propofol usage. Burn Absent Trauma Absent Current % PO Negligible Minimum of two criteria No physical signs of malnutrition #1 Nutrition Diagnosis Inadequate oral intake Etiology pt unable to feed via PO As Evidenced by Signs and Symptoms Pt on mechanical vent Is patient on ventilator? Yes Is Patient Ambulatory and/or Out of Bed No REE-([facility]-confined to bed) 2401.357 Calculation Used for Recommendations [facility] Additional Notes protein needs: 106 - 177 g (1. 2 - 2 g/kgBW) fluid needs: 1 ml/kcal Nutrition Intervention Change Diet Order: Initiate TF Regimen Nutrition Support: Vital AF at 65 ml/hr with a free water flush of 175 ml q4h Kcal 1,872 Protein (gm) 117 Fluid (mL) 1,265 Goal #1 Meet at least 75% of kcal and protein needs via TF Anticipated Discharge Needs: unable to determine at this time Follow-Up By: 11/08/20 Additional Comments F/U for TF at goal, propofol status, vent status, TF [place]
[2020-11-07] MEDS ORDERED: hydroCHLOROthiazide 25 MG TAB PO SCH (13:00)
[2020-11-07] MEDS ORDERED: cloNIDine TTS 0.3 MG/24 HR PATCH TD SCH (13:00)
[2020-11-07] MEDS ORDERED: amLODIPine 5 MG TAB PO SCH (13:00)
--- NOTE | 2020-11-07 13:45 | Progress Note ---
Assessment and Plan - Patient Problems (1) Dilated cardiomyopathy Current Visit: Yes Status: Acute Plan to address problem: Patient presented to the hospital with nausea and vomiting, alcohol intoxication, and found with narrow complex tachycardia. Further cardiac evaluation with an echocardiogram showed a severe dilated cardiomyopathy. He is stable for cardiac discharge of medications. I have had an extensive discussion with the patient about the cardiomyopathy which is probably chronic. We recommend guideline directed medical therapy for what appears to be a likely alcoholic cardiomyopathy. We recommended a low-salt diet, and immediate cessation of alcohol consumption. We recommend close outpatient cardiac follow-up for further management in the future including device therapies as indicated. Patient reports understanding of the severity of his cardiomyopathy and his willingness to follow recommendations as listed. Subjective Date of service: 11/07/20 Interval history: Patient is comfortable, no cardiac complaints, no chest pain and no shortness of breath. Objective Vital Signs Temp Pulse Pulse Pulse Pulse Resp BP 11/07/20 12:33 99 H 156/113 11/07/20 12:00 99 H 11/07/20 11:47 98.8 F 103 H 12 11/07/20 09:25 103 H 146/104 11/07/20 08:43 98.8 F 103 H 12 11/07/20 08:00 103 H 11/07/20 05:55 115 H 146/96 11/07/20 04:16 100.1 F H 116 H 18 146/96 11/07/20 04:00 110 H 11/07/20 01:37 114 H 155/112 11/07/20 00:00 114 H 11/06/20 22:50 112 H 145/97 11/06/20 22:48 109 H 18 141/99 11/06/20 22:00 114 H 112 H 11/06/20 21:50 11/06/20 20:51 99.1 F 108 H 17 145/97 11/06/20 20:00 114 H 11/06/20 19:04 108 H 133/92 11/06/20 18:41 104 H 17 133/92 11/06/20 18:31 100 H 27 H 133/92 11/06/20 18:21 97 H 15 133/92 11/06/20 18:11 95 H 21 133/92 11/06/20 18:01 94 H 18 133/92 11/06/20 17:51 96 H 23 150/99 11/06/20 17:41 96 H 25 H 150/99 11/06/20 17:31 94 H 12 150/99 11/06/20 17:21 90 15 150/99 11/06/20 17:11 91 H 20 150/99 11/06/20 17:01 96 H 14 150/99 11/06/20 16:51 95 H 19 150/99 11/06/20 16:41 95 H 27 H 150/99 11/06/20 16:31 91 H 18 150/99 11/06/20 16:21 93 H 24 150/99 11/06/20 16:11 92 H 18 150/99 11/06/20 16:01 95 H 13 150/99 11/06/20 16:00 99 H 98 H 90 11/06/20 15:51 93 H 21 132/96 11/06/20 15:41 96 H 21 132/96 11/06/20 15:31 92 H 17 132/96 11/06/20 15:21 92 H 26 H 132/96 11/06/20 15:11 92 H 29 H 132/96 11/06/20 15:06 93 H 132/96 11/06/20 15:01 93 H 20 140/90 11/06/20 14:51 93 H 22 140/90 11/06/20 14:41 92 H 15 140/90 11/06/20 14:31 90 29 H 140/90 11/06/20 14:21 93 H 31 H 140/90 11/06/20 14:11 95 H 21 140/90 11/06/20 14:01 97 H 20 140/90 11/06/20 13:51 94 H 29 H 140/90 BP Pulse Ox 11/07/20 12:33 11/07/20 12:00 11/07/20 11:47 156/114 98 11/07/20 09:25 11/07/20 08:43 146/104 98 11/07/20 08:00 11/07/20 05:55 11/07/20 04:16 98 11/07/20 04:00 11/07/20 01:37 11/07/20 00:00 11/06/20 22:50 11/06/20 22:48 99 11/06/20 22:00 99 11/06/20 21:50 94 11/06/20 20:51 98 11/06/20 20:00 11/06/20 19:04 11/06/20 18:41 100 11/06/20 18:31 99 11/06/20 18:21 100 11/06/20 18:11 98 11/06/20 18:01 100 11/06/20 17:51 100 11/06/20 17:41 100 11/06/20 17:31 100 11/06/20 17:21 100 11/06/20 17:11 100 11/06/20 17:01 99 11/06/20 16:51 100 11/06/20 16:41 99 11/06/20 16:31 100 11/06/20 16:21 100 11/06/20 16:11 100 11/06/20 16:01 100 11/06/20 16:00 99 11/06/20 15:51 100 11/06/20 15:41 100 11/06/20 15:31 100 11/06/20 15:21 99 11/06/20 15:11 90 11/06/20 15:06 11/06/20 15:01 100 11/06/20 14:51 99 11/06/20 14:41 100 11/06/20 14:31 97 11/06/20 14:21 95 11/06/20 14:11 99 11/06/20 14:01 100 11/06/20 13:51 99 - Physical Examination General: Other (Sedated, on the vent) HEENT: Positive: PERRL Neck: Positive: neck supple Cardiac: Positive: Reg Rate and Rhythm Lungs: Positive: Decreased Breath Sounds Neuro: Positive: Weakness (Sedated, on the vent) Abdomen: Positive: Soft Skin: Positive: Clear Extremities: Absent: edema - Labs and Meds Cardiac Enzymes 11/07/20 Range/Units 08:27 AST 114 H (5-40) units/L Comprehensive Metabolic Panel 11/07/20 Range/Units 08:27 Sodium 131 L D (137-145) mmol/L Potassium 3.6 (3.6-5.0) mmol/L Chloride 90.5 L (98-107) mmol/L Carbon Dioxide 23 (22-30) mmol/L BUN 8 L (9-20) mg/dL Creatinine 0.6 L (0.8-1.3) mg/dL Glucose 80 (75-100) mg/dL Calcium 8.9 (8.4-10.2) mg/dL AST 114 H (5-40) units/L ALT 57 H (7-56) units/L Alkaline Phosphatase 249 H (35-129) units/L Total Protein 7.4 (6.3-8.2) g/dL Albumin 3.8 L (3.9-5) g/dL
[2020-11-07] MEDS: carvediloL 12.5 MG TAB PO SCH ×2 (14:30→21:39)
[2020-11-07] MEDS: SPIRONOLACTONE 25 MG TAB PO SCH (14:42)
[2020-11-07] MEDS: LOSARTAN 50 MG TAB PO SCH (14:43)
[2020-11-07] MEDS: FUROSEMIDE 40 MG TAB PO SCH (14:49)
[2020-11-07 16:01] LABS: Hepatitis B Surface Antigen Non-Reactive (Negative); Hepatitis C Virus Antibody Non-Reactive (NonReactive)
--- NOTE | 2020-11-07 16:53 | Gastroenterology Consultation ---
History of Present Illness - Reason for Consult Consult date: 11/07/20 elevated liver enzymes Requesting physician: GRACE HALEY - History of Present Illness This is a 30 yo male with chronic alcohol use and HTN presented to the ED on 11/04/2020 with chest pain, sob, cough, and hemoptysis. He was intubated in the ED for respiratory distress and SVT. Self extubated yesterday. GI consulted for elevated liver enzymes. Patient currently on CIWA protocol and receiving ativan for possible alcohol withdrawal. Poor historian. Reports partying with alcohol intake prior to presentation and had abdominal discomfort and cough. Takes regularly but can't say how much. He denies any prior liver disease diagnosis or family hx of liver disease. No blood in the stools or melena. Medication list reviewed. Past History Past Medical History: No medical history, hypertension Past Surgical History: Other (Right wrist surgery) Social history: alcohol abuse Family history: no significant family history Medications and Allergies Allergies Allergy/AdvReac Type Severity Reaction Status Date / Time Fish Containing Products Allergy Swelling Verified 11/04/20 13:46 Home Medications Medication Instructions Recorded Confirmed Last Taken Type Folic Acid [Folvite] 1 mg PO DAILY #30 tablet 04/29/19 11/05/20 Unknown Rx Thiamine [Vitamin B-1] 100 mg PO QDAY #30 tablet 04/29/19 11/05/20 Unknown Rx cloNIDine-TTS PATCH [Catapres-Tts 0.3 mg TD QWEEK #4 patch 04/29/19 11/05/20 Unknown Rx 0.3mg Patch] hydroCHLOROthiazide [HCTZ] 25 mg PO QDAY #30 tablet 04/29/19 11/05/20 Unknown Rx labetaloL [Labetalol 200mg TAB] 200 mg PO BID #60 tablet 04/29/19 11/05/20 Unknown Rx amLODIPine [Norvasc] 5 mg PO DAILY 11/05/20 11/05/20 Unknown History Active Meds: Active Medications Acetaminophen (Acetaminophen 325 Mg Tab) 650 mg PO Q4H PRN PRN Reason: Pain MILD(1-3)/Fever >100.5/GUILLAUME Carvedilol (Carvedilol 12.5 Mg Tab) 12.5 mg PO BID DEVI Famotidine (Famotidine 20 Mg Tab) 20 mg PO BID DEVI Last Admin: 11/07/20 09:28 Dose: 20 mg Documented by: Folic Acid (Folic Acid 1 Mg Tab) 1 mg PO DAILY [facility] Last Admin: 11/07/20 09:25 Dose: 1 mg Documented by: Furosemide (Furosemide 40 Mg Tab) 40 mg PO QDAY [facility] Last Admin: 11/07/20 14:49 Dose: 40 mg Documented by: Haloperidol Lactate (Haloperidol Lactate 5 Mg/1 Ml Inj) 5 mg IV Q6H PRN PRN Reason: Agitation Heparin Sodium (Porcine) (Heparin 5,000 Unit/1 Ml Vial) 5,000 unit SUB-Q Q8HR [facility] Last Admin: 11/07/20 14:44 Dose: 5,000 unit Documented by: Hydrochlorothiazide (Hydrochlorothiazide 25 Mg Tab) 25 mg PO QDAY [facility] Last Admin: 11/07/20 12:33 Dose: 25 mg Documented by: Hydrophilic Ointment (Lip Therapy Vaseline) 1 applic TP Q2HR PRN PRN Reason: Dry Lips Labetalol HCl (Labetalol 200 Mg Tab) 200 mg PO BID [facility] Last Admin: 11/07/20 12:33 Dose: 200 mg Documented by: Lorazepam (Lorazepam 2 Mg/Ml Vial) 4 mg IV Q1HR PRN PRN Reason: CIWA-Ar 16-25 Last Admin: 11/07/20 14:48 Dose: 4 mg Documented by: Losartan Potassium (Losartan 50 Mg Tab) 100 mg PO QDAY [facility] Last Admin: 11/07/20 14:43 Dose: 100 mg Documented by: Magnesium Hydroxide (Magnesium Hydroxide (Mom) Oral Liqd Udc) 30 ml PO Q4H PRN PRN Reason: Constipation Morphine Sulfate (Morphine 2 Mg/1 Ml Inj) 2 mg IV Q4H PRN PRN Reason: Pain, Moderate (4-6) Multi-Ingred Cream/Lotion/Oil/Oint (Mineral Oil/Petrolatum, White Ophth Oint 3.5 Gm) 1 applic OU Q4HR PRN PRN Reason: Dry Eye(s) Ondansetron HCl (Ondansetron 4 Mg/2 Ml Inj) 4 mg IV Q8H PRN PRN Reason: Nausea And Vomiting Phenol (Phenol 1.4% 177 Ml Bottle) 1 spray MM PRN PRN PRN Reason: Sore Throat Last Admin: 11/07/20 01:54 Dose: 1 spray Documented by: Sodium Chloride (Sodium Chloride 0.9% 10 Ml Flush Syringe) 10 ml IV BID [facility] Last Admin: 11/07/20 09:29 Dose: 10 ml Documented by: Sodium Chloride (Sodium Chloride 0.9% 10 Ml Flush Syringe) 10 ml IV PRN PRN PRN Reason: LINE FLUSH Spironolactone (Spironolactone 25 Mg Tab) 25 mg PO QDAY [facility] Last Admin: 11/07/20 14:42 Dose: 25 mg Documented by: Thiamine HCl (Thiamine 100 Mg Tab) 100 mg PO QDAY [facility] Last Admin: 11/07/20 09:28 Dose: 100 mg Documented by: Review of Systems - Review of Systems All systems: negative Constitutional: no weight loss, no weight gain Cardiovascular: chest pain Respiratory: cough, shortness of breath Gastrointestinal: abdominal pain, nausea Neurological: weakness Psychiatric: anxiety, depression Hematologic/Lymphatic: no easy bruising Allergic/Immunologic: no wheezing Exam - Constitutional Vital Signs: Temp Pulse Resp BP Pulse Ox 98.8 F 99 H 12 156/113 98 11/07/20 11:47 11/07/20 16:00 11/07/20 11:47 11/07/20 14:43 11/07/20 11:47 General appearance: no acute distress - EENT ENT: hearing intact - Respiratory Respiratory effort: normal - Cardiovascular Rhythm: regular Heart Sounds: Present: S1 & S2 - Gastrointestinal General gastrointestinal: Present: soft, non-tender, non-distended - Integumentary Integumentary: Present: clear, warm - Psychiatric Psychiatric: other (drowsy) - Labs CBC & Chem 7: 11/06/20 06:45 11/07/20 08:27 Lab Results: Laboratory Results - last 24 hr 11/06/20 11/07/20 11/07/20 17:47 08:27 13:51 Sodium 131 L D Potassium 3.6 Chloride 90.5 L Carbon Dioxide 23 Anion Gap 21 BUN 8 L Creatinine 0.6 L Estimated GFR > 60 BUN/Creatinine Ratio 13 Glucose 80 POC Glucose 78 Calcium 8.9 Total Bilirubin 2.40 H AST 114 H ALT 57 H Alkaline Phosphatase 249 H Total Protein 7.4 Albumin 3.8 L Albumin/Globulin Ratio 1.1 Hepatitis A IgM Ab Non-reactive Hep Bs Antigen Non-reactive Hep B Core IgM Ab Non-reactive Hepatitis C Antibody Non-reactive Assessment and Plan # Elevated liver enzymes - hepatocellular pattern with AST 200s ALT 100s on admission and LFTs trending down today. - suspect due to alcohol use as well as sepsis with b/l pneumonia - COVID negative - acute viral hepatitis panel negative - INR at 1.02 - currently on CIWA protocol and receiving ativan prn. - patient also noted to have HFrEF likely due to chronic alcohol use. - no signs of GI bleeding. Rec - RUQ US ordered and pending. CT chest showed hepatic steatosis - advised for alcohol cessation - if LFTs trending down or stable, may follow up in outpatient GI clinic for further work up.
--- NOTE | 2020-11-07 21:25 | Ultrasound Report ---
ULTRASOUND ABDOMEN, LIMITED (RIGHT UPPER QUADRANT) INDICATION / CLINICAL INFORMATION: hepatitis. COMPARISON: Abdominal ultrasound 04/24/2019 FINDINGS: Technically difficult examination secondary to patient body habitus, positioning, and overl vishal bowel gas. PANCREAS: Visualized portion shows no significant abnormality. LIVER: Enlarged at 20.2 cm. Coarse, increased echogenicity throughout the liver. GALLBLADDER: Multiple echogenic stones in the gallbladder. No significant gallbladder wall thickening or pericholecystic fluid. No reported sonographic Fowler sign. BILE DUCTS: No significant abnormality. Common bile duct measures 4 mm. FREE FLUID: None. ADDITIONAL FINDINGS: None. IMPRESSION: 1. Hepatomegaly with hepatic steatosis. 2. Cholelithiasis without evidence of acute cholecystitis. Signer Name: Manav Suarez MD Signed: 11/07/2020 9:21 PM Workstation Name: [id number]
[2020-11-08] MEDS: HEPARIN 5,000 UNIT/1 ML VIAL SUB-Q SCH ×2 (05:53→13:31)
[2020-11-08] MEDS: FAMOTIDINE 20 MG TAB PO SCH (09:41)
[2020-11-08] MEDS: SPIRONOLACTONE 25 MG TAB PO SCH (09:41)
[2020-11-08] MEDS: THIAMINE 100 MG TAB PO SCH (09:41)
[2020-11-08] MEDS: FOLIC ACID 1 MG TAB PO SCH (09:42)
[2020-11-08] MEDS: carvediloL 12.5 MG TAB PO SCH (09:42)
[2020-11-08] MEDS: FUROSEMIDE 40 MG TAB PO SCH (09:42)
[2020-11-08] MEDS: LOSARTAN 50 MG TAB PO SCH (09:42)
[2020-11-08 09:53] LABS: Alanine Aminotransferase 52 units/L (7-56); Albumin 3.4 g/dL (3.9-5); BUN/Creatinine Ratio 19; Blood Urea Nitrogen 15 mg/dL (9-20); Calcium 8.9 mg/dL (8.4-10.2); Hemolysis Index 11
--- NOTE | 2020-11-08 10:09 | Progress Note ---
Assessment and Plan - Patient Problems (1) Dilated cardiomyopathy Current Visit: Yes Status: Acute Plan to address problem: Patient with history of chronic alcohol abuse, presented with nausea vomiting and hematemesis, incidental finding of a narrow complex tachycardia on presentation prompted a cardiac evaluation, which has revealed the presence of a severe dilated cardiomyopathy with left ventricular ejection fraction 15 to 20%. This is presumed to be a chronic, alcohol-related nonischemic cardiomyopathy. He has been started on guideline directed medical therapy which is recommended to be continued on discharge. Recommended for close outpatient cardiac follow- up for additional outpatient therapies including device therapies. Subjective Date of service: 11/08/20 Interval history: Patient is comfortable, no cardiac complaints, states that he wants to go home. Objective Vital Signs Temp Pulse Resp BP BP Pulse Ox 11/08/20 04:51 98.7 F 91 H 20 130/84 97 11/08/20 04:00 97 H 11/08/20 00:06 98.9 F 107 H 20 104/67 95 11/08/20 00:00 120 H 11/07/20 23:00 99 11/07/20 21:40 110 H 132/92 11/07/20 21:39 110 H 132/92 11/07/20 21:33 95 11/07/20 20:53 99.9 F H 115 H 20 132/92 93 11/07/20 20:00 112 H 11/07/20 16:00 99 H 11/07/20 14:43 99 H 156/113 11/07/20 14:42 99 H 156/113 11/07/20 14:30 99 H 11/07/20 12:33 99 H 156/113 11/07/20 12:00 99 H 11/07/20 11:47 98.8 F 103 H 12 156/114 98 11/07/20 11:46 156/118 - Physical Examination General: Other (Sedated, on the vent) HEENT: Positive: PERRL Neck: Positive: neck supple Cardiac: Positive: Reg Rate and Rhythm Lungs: Positive: Decreased Breath Sounds Neuro: Positive: Weakness (Sedated, on the vent) Abdomen: Positive: Soft Skin: Positive: Clear Extremities: Absent: edema - Labs and Meds Cardiac Enzymes 11/07/20 11/08/20 11/08/20 Range/Units 08:27 09:05 09:05 AST 114 H 100 H (5-40) units/L Lactate Dehydrogenase 243 H (91-180) units/L Comprehensive Metabolic Panel 11/07/20 11/08/20 Range/Units 08:27 09:05 Sodium 131 L D 131 L (137-145) mmol/L Potassium 3.6 3.2 L (3.6-5.0) mmol/L Chloride 90.5 L 91.5 L (98-107) mmol/L Carbon Dioxide 23 24 (22-30) mmol/L BUN 8 L 15 (9-20) mg/dL Creatinine 0.6 L 0.8 (0.8-1.3) mg/dL Glucose 80 101 H (75-100) mg/dL Calcium 8.9 8.9 (8.4-10.2) mg/dL AST 114 H 100 H (5-40) units/L ALT 57 H 52 (7-56) units/L Alkaline Phosphatase 249 H 199 H (35-129) units/L Total Protein 7.4 7.5 (6.3-8.2) g/dL Albumin 3.8 L 3.4 L (3.9-5) g/dL
[2020-11-08] MEDS ORDERED: POTASSIUM CHLORIDE ER 20 MEQ TAB PO NR (10:13)
--- NOTE | 2020-11-08 10:14 | Discharge Summary ---
Providers - Providers Date of Admission: 11/05/20 02:20 Date of discharge: 11/08/20 Attending physician: CARMEN NATION 11/05/20 04:01 Consult to Physician [CONS] Routine Comment: spoke to dr. carvalho/ elias Consulting Provider: NORI CARVALHO Physician Instructions: Reason For Exam: Pneumonia. Rule out COVID-19. 11/05/20 08:11 Consult to Physician [CONS] Routine Comment: dr. jose came and saw pat. /elias Consulting Provider: DERIAN JOSE Physician Instructions: Reason For Exam: SVT 11/05/20 11:09 Consult to Dietitian/Nutrition [CONS] Routine Physician Instructions: Reason For Exam: Reason for Consult: Write/Manage Tube Feeding 11/07/20 10:42 Consult to Physician [CONS] Routine Comment: Consulting Provider: LUIZA GOMEZ Physician Instructions: Reason For Exam: hyperbiliribunemia Primary care physician: [employer] Hospitalization Condition: Fair Hospital course: 30-year-old male with EtOH abuse who presented to the emergency department on 11/05 with complaints of palpitations, cough, shortness of breath ssociated with mild chest discomfort for about 2 weeks and over the last few days he has had hemoptysis. Work-up in the emergency department included a CTA chest which showed moderate patchy bilateral airspace opacities worrisome for multifocal pneumonia, hepatic steatosis and no evidence of pulmonary embolism and of note his blood alcohol level was 0.29. Patient was admitted to the hospital service with lactic acidosis, transaminitis, possible multifocal pneumonia as a COVID-19 PUI. CCM, ID, cardiology consulted. 11/06: At the time of my examination patient was sedated on fentanyl and propofol and Precedex on assist control mode ventilation rate of 20, PEEP of 6, tidal volume 450, FiO2 40%. COVID-19 PCR pending. Early afternoon patient self extubated. Given ejection fraction [facility] has initiated IV Lasix twice daily. We will trend BMP. 11/07/2020; patient was on 2 L of oxygen, I have discussed the nurse to take off his oxygen and see how he is doing. Patient said he has been drinking half a gallon of liquor every day and have counseled extensively to quit drinking given his condition. Patient agreed to quit drinking. 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 His bilirubin was elevated this morning and I put a consult for GI. Patient had low-grade fever this morning and was seen by ID and recommend no antibiotic and ID signed off. Patient is on CIWA protocol. He has hyponatremia and will monitor. Patient can be discharged tomorrow if patient is doing well. 11/08/2020. Patient seen and examined at bedside this morning. Patient is eager to be discharged today. Labs reviewed-bilirubin continues to trend down. Advised patient to stop intake as this could have caused his cardiomyopathy. His heart rate is controlled. He has been advised to continue current medications as ordered. He will follow-up with cardiology and gastroenterology in the office. Disposition: - TO HOME OR SELFCARE Final Discharge Diagnosis (Prints w/discharge instructions): Acute systolic heart failure Time spent for discharge: 50 minutes - Discharge Diagnoses (1) Dilated cardiomyopathy Status: Acute (2) Narrow complex tachycardia Status: Acute (3) Alcohol abuse Status: Acute Core Measure Documentation - Palliative Care Palliative Care/ Comfort Measures: Not Applicable - Core Measures Any of the following diagnoses?: heart failure - Heart Failure Discharge Requirements ROSALIND/ARB for LVSD if EF <40%: Yes Beta bong at discharge: Yes Exam - Physical Exam Narrative exam: VITAL SIGNS: Reviewed. GENERAL: Awake HEAD: No signs of head trauma. EYES: Pupils are equal. Extraocular motions intact. MOUTH: Oropharynx is normal. NECK: No adenopathy, no JVD. CHEST: Chest with diminished breath sounds bilaterally. No wheezes, rales, or rhonchi. CARDIAC: normal S1 and S2, without murmurs, gallops, or rubs. ABDOMEN: Soft, non tender and non distended. No rebound or guarding, and no masses palpated. Bowel Sounds normal. MUSCULOSKELETAL: No edema NEUROLOGIC EXAM: Alert and oriented x3. No focal neurologic deficits SKIN: No obvious lesions - Constitutional Vitals: Temp Pulse Resp BP Pulse Ox 98.7 F 91 H 20 130/84 97 11/08/20 04:51 11/08/20 04:51 11/08/20 04:51 11/08/20 04:51 11/08/20 04:51 Plan Activity: advance as tolerated Diet: low fat, low cholesterol, low salt Additional Instructions: Take low-sodium diet. Continue medications as ordered. Stop alcohol abuse. Follow-up with neon sign maker in the office in 1 to 2 weeks. Follow-up with information assurance officer in the office in 1 to 2 weeks Follow up with: DERIAN JOSE MD [Staff Physician] - 7 Days PRIMARY CARE, [Primary Care Provider] - 3-5 Days ELO JEWELL MD [Staff Physician] - 7 Days Prescriptions: Spironolactone [Aldactone] 25 mg PO QDAY #60 tablet carvediloL [Coreg] 25 mg PO BID #60 tablet Losartan [Cozaar] 100 mg PO QDAY #120 tablet Folic Acid [Folvite] 1 mg PO DAILY #60 tablet Furosemide [Lasix TAB] 40 mg PO QDAY #60 tablet
--- NOTE | 2020-11-08 12:55 | Gastroenterology Progress Note ---
Assessment and Plan # Elevated liver enzymes - hepatocellular pattern with AST 200s ALT 100s on admission and LFTs continue to trend down. - suspect due to alcohol use as well as sepsis with b/l pneumonia - COVID negative - acute viral hepatitis panel negative - INR at 1.02 - currently on CIWA protocol and receiving ativan prn. - patient also noted to have HFrEF likely due to chronic alcohol use. - no signs of GI bleeding. - RUQ US showing hepatomegaly and hepatic steatosis. Rec - advised for alcohol cessation - planned for discharge. Follow up in outpatient GI clinic for fatty liver. - will sign off. please call with questions. Subjective Date of service: 11/08/20 Interval history: Patient reports doing well. No abdominal pain, nausea or vomiting. Tolerating diet. Objective - Constitutional Vitals: Temp Pulse Resp BP Pulse Ox 98.3 F 91 H 18 118/82 99 11/08/20 07:47 11/08/20 08:00 11/08/20 07:47 11/08/20 07:47 11/08/20 10:26 General appearance: no acute distress - EENT ENT: hearing intact - Respiratory Respiratory effort: normal - Cardiovascular Rhythm: regular Heart Sounds: Present: S1 & S2 - Gastrointestinal General gastrointestinal: Present: soft, non-tender, non-distended - Integumentary Integumentary: Present: clear, warm - Labs CBC & Chem 7: 11/06/20 06:45 11/08/20 09:05 Labs: Laboratory Results - last 24 hr 11/07/20 11/08/20 11/08/20 13:51 09:05 09:05 D-Dimer 142.90 Sodium Potassium Chloride Carbon Dioxide Anion Gap BUN Creatinine Estimated GFR BUN/Creatinine Ratio Glucose Calcium Ferritin 563.3 H Total Bilirubin AST ALT Alkaline Phosphatase Lactate Dehydrogenase C-Reactive Protein Total Protein Albumin Albumin/Globulin Ratio Hepatitis A IgM Ab Non-reactive Hep Bs Antigen Non-reactive Hep B Core IgM Ab Non-reactive Hepatitis C Antibody Non-reactive 11/08/20 11/08/20 09:05 09:05 D-Dimer Sodium 131 L Potassium 3.2 L Chloride 91.5 L Carbon Dioxide 24 Anion Gap 19 BUN 15 Creatinine 0.8 Estimated GFR > 60 BUN/Creatinine Ratio 19 Glucose 101 H Calcium 8.9 Ferritin Total Bilirubin 1.70 H AST 100 H ALT 52 Alkaline Phosphatase 199 H Lactate Dehydrogenase 243 H C-Reactive Protein 6.00 H Total Protein 7.5 Albumin 3.4 L Albumin/Globulin Ratio 0.8 Hepatitis A IgM Ab Hep Bs Antigen Hep B Core IgM Ab Hepatitis C Antibody
[2020-11-08 14:24] VITALS: BP 122/74
== END 2020-11-08 15:30 | disposition home or self-care (01) | DRG 208 ==
LOC: ED 13:28 → 3A 11-05 02:20 → IMCU 11-05 02:48 → CC1 11-05 05:33 → 4A 11-06 18:31
PROVIDERS: ADMIT Internal Medicine Geriatric Medicine; ATTEND Internal Medicine
PROC: 0BH17EZ Insertion of Endotracheal Airway into Trachea, Via Natural or Artificial Opening (ICD-10-PCS; principal; 2020-11-05)
PROC: 5A1945Z Respiratory Ventilation, 24-96 Consecutive Hours (ICD-10-PCS; 2020-11-05)
PROC: 4A033R1 Measurement of Arterial Saturation, Peripheral, Percutaneous Approach (ICD-10-PCS; 2020-11-05)
DX: J18.9 Pneumonia, unspecified organism (principal); J96.01 Acute respiratory failure with hypoxia; I50.21 Acute systolic (congestive) heart failure; I42.0 Dilated cardiomyopathy; I47.1 Supraventricular tachycardia; E87.2 Acidosis; Z20.822 Contact with and (suspected) exposure to COVID-19; K76.0 Fatty (change of) liver, not elsewhere classified; E83.42 Hypomagnesemia; I11.0 Hypertensive heart disease with heart failure; F10.10 Alcohol abuse, uncomplicated; Z79.899 Other long term (current) drug therapy; Z79.891 Long term (current) use of opiate analgesic; Z79.01 Long term (current) use of anticoagulants; Z91.013 Allergy to seafood
CPT/HCPCS: 31500; 36415; 36600; 71045; 71046; 71275; 74018; 76705; 80048; 80053; 80074; 80307; 80320; 81001; 82140; 82728; 82803; 82805; 82947; 82962; 83615; 83690; 83735; 84100; 84145; 84439; 84443; 84484; 85025; 85379; 85610; 85730; 86140; 87040; 87070; 87205; 93005; 93306; 94002; 94003; 94660; 96374; G0378; G0480; J0456; J0692; J0696; J1630; J1644; J1940; J2060; J2704; J3010; J3475; J3490; J7030; Q9967; U0003